=== PATIENT | male | born 1950 | race Caucasian/White ===

== ENCOUNTER → 2017-02-02 | Day surgery (SDC) | payer BC ==
[2017-01-08 08:06] VITALS: Ht 174 cm; Wt 93.6 kg
[~2017-02-02] VITALS: Ht 174 cm; Wt 93.6 kg
[~2017-02-02] MED LIST: ACETAMINOPHEN 325 MG TAB PO PRN; ALBU1AER9 INH; ASCO1TAB3 PO; ATROPINE SULFATE 0.1 MG/ML 5ML SYR IV PRN; BRIMONIDINE TART 0.2% OP SOLN PER DROP CHARGE ONE; EpINEphrine INJ 1MG/ML AMP 1 MG/ML AMP ONE; GLUCTAB7 PO; HYDR-1838 PO; LACTATED RINGER'S 1000ML 500 ML IV SCH; LIDOCAINE 4% OP SOLN DROP CHARGE ONE; LIDOCAINE 4% OP SOLN DROP CHARGE OPR SCH; LIDOCAINE HCL 1% MPF 2 ML VIAL ONE; MELA3TAB12 PO; MIDAZOLAM HCL 1 MG/ML 2ML VIAL ONE; MOXIFLOXACIN OPH SOLN PER DROP CHARGE ONE; MULT-506 PO; OMEG10007 PO; POVIDONE-IODINE OP SOLN 30 ML BTL ONE; PRLSR20 PO; PROPARACAINE 0.5% OP SOLN PER DROP CHARGE OPR SCH; SILD100T PO; SYMIN160 INH; TOBRAMYCIN/DEXAMETHASONE OPH OINT PER APPLN CHARGE ONE; VITACAP37 PO; ZINC1TAB4 PO
[2017-02-02] MEDS: PHENYLEPHRINE HCL 2.5% OP SOLN PER DROP CHARGE OPR SCH ×2 (11:24→11:29)
[2017-02-02] MEDS: TROPICAMIDE 1% OP SOLN PER DROP CHARGE OPR SCH ×2 (11:25→11:30)
[2017-02-02] MEDS: CYCLOPENTOLATE HCL 1% OP SOLN PER DROP CHARGE OPR SCH ×2 (11:26→11:31)
[2017-02-02] MEDS: KETOROLAC 0.5% OP SOLN PER DROP CHARGE OPR SCH ×2 (11:27→11:32)
[2017-02-02] MEDS: MOXIFLOXACIN OPH SOLN PER DROP CHARGE OPR SCH ×2 (11:28→11:38)
--- NOTE | 2017-02-02 12:23 | History & Physical Bridge - [place] ---
H&P Re-Evaluation Bridge Note: I have examined the patient, reviewed the History & Physical and in the interval since the performance of the History & Physical I have noted the following changes of clinical significance: No changes noted
--- NOTE | 2017-02-02 12:52 | Discharge Instructions-SurgCtr ---
Discharge Instructions Date of Service Feb 02, 2017. Visit Reason for Visit: Cataract Right Eye Discharge Discharge Diagnosis / Problem: cataract right eyee Discharge Goals Goal(s): Improve function Activity Recommendations Activity Limitations: per Instructions/Follow-up section Lifting Limitations: no more than 5 pounds Anesthesia . Post Anesthesia Instructions: If you have had General Anesthesia or IV Sedation: * Do not drive today. * Resume driving when surgeon permits. * Do not make important decisions or sign legal documents today. * Call surgeon for: 1. Temperature elevations greater than 101 degrees F. 2. Uncontrollable pain. 3. Excessive bleeding. 4. Persistent nausea and vomiting. 5. Medication intolerance (nausea, vomiting or rash). * For nausea and vomiting use only clear liquids such as: tea, soda, bouillon until nausea subsides, then gradually increase diet as tolerated. * If you have any concerns or questions, call your surgeon's office. If physician is unavailable and it is an emergency, call 911 or go to the nearest emergency room. . Instructions / Follow-Up Instructions / Follow-Up ACTIVITY RECOMMENDATIONS: * Light activities * You may walk outside, read, watch television. * Mild irritation and blurred vision are common for the first few days, redness around the white part of the eye is common. MEDICATIONS: Resume previous medications unless instructed otherwise by your surgeon. Eye drops (today and tomorrow): Cipro - one drop in operative eye every 2 hours while awake Prednisolone 1% - one drop in operative eye every 2 hours while awake Ketorolac - one drop in operative eye every 2 hours while awake SPECIAL CARE INSTRUCTIONS: * If any problems or concerns, please call Dr. Leblanc's office at . * Keep plastic shield taped over eye to sleep at night. * Keep plastic shield taped over eye except to administer eye drops. * Keep plastic shield on until office visit the following day. FOLLOW UP VISIT: Follow-up with Dr. Leblanc in the [place] office as scheduled. If not already scheduled, please call the office at . Diet Recommendations Home Diet: resume previous diet Procedures Procedures Performed: Right Cataract Phacoemulsification With Intraocular Lens Implant Pending Studies Studies pending at discharge: no Medical Emergencies . Who to Call and When: Medical Emergencies: If at any time you feel your situation is an emergency, please call 911 immediately. . Non-Emergent Contact Non-Emergency issues call your: Fire Chief Deputy . . "Provider Documentation" section prepared by Javy Leblanc.
--- NOTE | 2017-02-02 12:53 | [facility] Post Operative Brief Note ---
Immediate Operative Summary Operative Date Feb 02, 2017. Pre-Operative Diagnosis Cataract right eye Post-Operative Diagnosis same Procedure(s) Performed Right Cataract Phacoemulsification With Intraocular Lens Implant Surgeon DR Leblanc Wireless Technician Surgeon(s) 0 Estimated Blood Loss 0 Findings cataract right eye Specimens 0 Complication(s) None Disposition Recovery Room / PACU
--- NOTE | 2017-02-02 13:20 | Anesthesia Progress Nt - [facility] ---
Anesthesia Post Op Note Date & Time Feb 02, 2017 at 13:19 Vital Signs Pain Intensity: 0 Vital Signs Past 12 Hours Date Time Temp Pulse Resp B/P Pulse Ox O2 Delivery O2 Flow Rate FiO2 02/02/17 12:59 36.5 63 14 149/95 97 Room Air 02/02/17 11:14 37.0 73 16 171/97 95 Room Air Notes Mental Status: alert / awake / arousable, participated in evaluation Pt Amnestic to Procedure: Yes Nausea / Vomiting: adequately controlled Pain: adequately controlled Airway Patency, RR, SpO2: stable & adequate BP & HR: stable & adequate Hydration State: stable & adequate Anesthetic Complications: no major complications apparent
[2017-02-02 13:26] VITALS: BP 147/95; PULSE 62; TEMP 36.7; O2SAT 96
--- NOTE | 2017-02-03 00:13 | OPERATIVE REPORT ---
DATE OF OPERATION: 02/02/2017 PREOPERATIVE DIAGNOSIS: Cataract, right eye. POSTOPERATIVE DIAGNOSIS: Cataract, right eye. PROCEDURE: Phacoemulsification cataract extraction with intraocular lens placement, right eye. SURGEON: Dr. Leblanc. COMPLICATIONS: None. ESTIMATED BLOOD LOSS: None. ANESTHESIA: Topical with sedation. OPERATION AND FINDINGS: After informed consent was obtained in the holding area the patient was wheeled back to the Operating Room where cardiac monitoring leads and oxygen by nasal cannula was administered by Anesthesia. Gentle IV sedation was given, and the patient's right eye was prepped and draped in usual sterile fashion. A wire lid speculum was placed into the right eye and the operating microscope was swung into position. Using 0.12 forceps and a Supersharp blade a paracentesis port was made 3 o'clock hours away from the 10 o'clock position of patient's right eye. 1% non-preserved Lidocaine was then injected into the anterior chamber for anesthesia. A 2.2 mm keratotome blade was then used to make a shelved clear corneal incision at the 10 o'clock position of his right eye. Amvisc was injected into the anterior chamber and a cystotome and Utrata forceps were used to perform a curvilinear capsulorrhexis. BSS on a hydrodissection cannula was used to hydrodissect the lens nucleus away from the capsular bag. The phacoemulsification handpiece was then used in a stop and chop fashion to remove the lens nucleus. The irrigation and aspiration handpiece was then used to remove the residual cortical material. Amvisc was injected into the capsular bag and anterior chamber and a Bausch \T\ Lomb MX60, 18.0 Diopter intraocular lens was injected into the capsular bag. Irrigation and aspiration handpiece was used to remove the residual viscoelastic material. The wounds were hydrated and noted to be watertight. The wire lid speculum was removed from the eye. Vigamox, Brimonidine, and TobraDex ointment were placed on the eye and it was shielded. It should be noted that EndoCoat was used during the case to protect the cornea endothelium. DISPOSITION: The patient tolerated the procedure well and was wheeled to the post anesthesia care unit in stable condition. I attest to the content of the Intraoperative Record and any orders documented therein. Any exceptions are noted below. I attest to the content of the Intraoperative Record and any orders documented therein. Any exceptio ns are noted below.
== END | disposition home or self-care (01) ==
LOC: X.SURG 10:59
PROVIDERS: ATTEND Ophthalmology
DX: H25.11 Age-related nuclear cataract, right eye (principal); I10 Essential (primary) hypertension; J45.909 Unspecified asthma, uncomplicated; J44.9 Chronic obstructive pulmonary disease, unspecified

== ENCOUNTER → 2017-05-07 | Outpatient (CLI) | payer BC ==
[~2017-05-07] MED LIST changes: -ACETAMINOPHEN 325 MG TAB PO PRN; -ATROPINE SULFATE 0.1 MG/ML 5ML SYR IV PRN; -BRIMONIDINE TART 0.2% OP SOLN PER DROP CHARGE ONE; -EpINEphrine INJ 1MG/ML AMP 1 MG/ML AMP ONE; -LACTATED RINGER'S 1000ML 500 ML IV SCH; -LIDOCAINE 4% OP SOLN DROP CHARGE ONE; -LIDOCAINE 4% OP SOLN DROP CHARGE OPR SCH; -LIDOCAINE HCL 1% MPF 2 ML VIAL ONE; -MIDAZOLAM HCL 1 MG/ML 2ML VIAL ONE; -MOXIFLOXACIN OPH SOLN PER DROP CHARGE ONE; -POVIDONE-IODINE OP SOLN 30 ML BTL ONE; -PROPARACAINE 0.5% OP SOLN PER DROP CHARGE OPR SCH; -TOBRAMYCIN/DEXAMETHASONE OPH OINT PER APPLN CHARGE ONE
--- NOTE | 2017-05-07 11:51 | DIAGNOSTIC IMAGING REPORT ---
CHEST 2 VIEWS ROUTINE CLINICAL HISTORY: SOB dyspnea COMPARISON STUDY: 10/17/2016 FINDINGS: Tortuous thoracic aorta. This is unchanged from the prior exam. Minimal chronic bibasilar platelike atelectasis. No focal infiltrate. Degenerative change thoracic spine. IMPRESSION: Chronic change. No acute process. Electronically signed by: Edmundo Rordiguez M.D. 05/07/2017 11:49 AM Dictated Date/Time: 05/07/2017 11:48 AM
== END | disposition home or self-care (01) ==
LOC: C.RAD1850 11:07
PROVIDERS: ATTEND Family Medicine
DX: R06.02 Shortness of breath (principal); Z87.09 Personal history of other diseases of the respiratory system

== ENCOUNTER 2020-07-31 05:10 | Observation (INO) ==
--- NOTE | 2020-07-06 14:51 | PAT Medication Instructions ---
Medication Instructions Date of Service July 06, 2020 Home Medications Medication Instructions Recorded inhalational spacing device #1 ea 06/28/19 azelastine 137 mcg (0.1 %) nasal 1 sprays INTNAS BID #30 ml 03/29/20 spray aerosol levocetirizine 5 mg tablet 5 mg PO DAILY PRN #60 tab 03/29/20 budesonide-formoterol HFA 160 2 puffs INH BID #10.2 gm 04/23/20 mcg-4.5 mcg/actuation aerosol inhaler ascorbic acid (vitamin C) 1,000 mg tablet 1 gm PO Q6H clobetasol 0.05 % topical cream 1 appln TOP DAILY melatonin 1 mg tablet 1 mg PO HS PRN montelukast 10 mg tablet 10 mg PO QPM multivitamin 1 cap PO QAM omega-3 fatty acids 1,000 mg capsule 1,000 mg PO QAM sildenafil 100 mg tablet 100 mg PO DAILY PRN zinc 50 mg tablet 50 mg PO QAM [id number]-cfw-islcxbrkt-hrb 149-hyalur 500 mg-500 mg-66.7 mg tablet 1 tab PO BID omeprazole 20 mg capsule,delayed release 20 mg PO BID azelastine 137 mcg (0.1 %) nasal spray aerosol 1 sprays INTNAS BID hydrocodone 5 mg-acetaminophen 325 mg tablet 1 tab PO Q6H PRN levocetirizine 5 mg tablet 5 mg PO DAILY PRN budesonide-formoterol HFA 160 mcg-4.5 mcg/actuation aerosol inhaler 2 puffs INH BID Elderberry 1 dose PO QAM tiotropium bromide [Spiriva Respimat] 2 puff INH QAM STOP taking 2 weeks before surgery omega-3 fatty acids 1,000 mg capsule 1,000 mg PO QAM zinc 50 mg tablet 50 mg PO QAM [id number]-zpe-pnaqlxiay-hrb 149-hyalur 500 mg-500 mg-66.7 mg tablet 1 tab PO BID Elderberry 1 dose PO QAM STOP taking 24 hours before surgery clobetasol 0.05 % topical cream 1 appln TOP DAILY sildenafil 100 mg tablet 100 mg PO DAILY PRN DO NOT take the morning of surgery ascorbic acid (vitamin C) 1,000 mg tablet 1 gm PO Q6H multivitamin 1 cap PO QAM levocetirizine 5 mg tablet 5 mg PO DAILY PRN Take morning of surgery With a small sip of water, OTHERWISE NOTHING TO EAT OR DRINK AFTER MIDNIGHT: omeprazole 20 mg capsule,delayed release 20 mg PO BID azelastine 137 mcg (0.1 %) nasal spray aerosol 1 sprays INTNAS BID hydrocodone 5 mg-acetaminophen 325 mg tablet 1 tab PO Q6H PRN (okay to take up to 4 hours prior to surgery if needed) budesonide-formoterol HFA 160 mcg-4.5 mcg/actuation aerosol inhaler 2 puffs INH BID tiotropium bromide [Spiriva Respimat] 2 puff INH QAM Take evening before surgery ascorbic acid (vitamin C) 1,000 mg tablet 1 gm PO Q6H melatonin 1 mg tablet 1 mg PO HS PRN (if needed) montelukast 10 mg tablet 10 mg PO QPM omeprazole 20 mg capsule,delayed release 20 mg PO BID azelastine 137 mcg (0.1 %) nasal spray aerosol 1 sprays INTNAS BID hydrocodone 5 mg-acetaminophen 325 mg tablet 1 tab PO Q6H PRN (if needed) budesonide-formoterol HFA 160 mcg-4.5 mcg/actuation aerosol inhaler 2 puffs INH BID Other Notes If you have any questions please call us at [phone] or [phone] or [phone] or [phone]
--- NOTE | 2020-07-09 16:06 | Anesthesiology Consultation ---
Date of Service July 09, 2020 Assessment & Plan (1) Encounter for pre-operative examination: COVID Status: As of 07/09 assessment, patient denies travel to endemic area, known exposure/sick contacts, or symptoms of COVID19. Patient instructed that they and their household members must follow strict social distancing guidelines, wear a mask in public and avoid travel for 14 days prior to surgery. Preoperative COVID19 testing to be completed prior to surgery per surgeon's a rrangements. Patient made aware to self-isolate as much as possible between COVID testing and surgery. Pulmonary Clearance 06/28/20 = "Cleared from pulmonary with mild-mod risk. Patient has moderate COPD with emphysema with obesity. Recommend ~6ml/kg TV if needed and BiPAP post-op. No absolute contraindication for surgery." Chart Review Chart Review: Acceptable Risk for Surgery (pending surgeon-ordered PCP cl earance) and Patient seen in Pre Admission Testing Teaching & Discussion Instructed NPO after midnight before surgery, except medications with 15 cc of water. Medication instructions provided according to the PAT guidelines. Advised no marijuana use for 24hrs prior to surgery. History Surgery Operation Date: 07/31/20 07:00 Proposed Procedures p Left Total Knee Arthroplasty - Miguel Angel Hermilo Busby MD Height/Weight Height: 5 ft 8 in Weight: 99.8 kg Allergies Allergy/AdvReac Type Severity Reaction Status Date / Time latex Allergy Unknown Rash Verified 07/05/20 11:54 No Known Drug Allergies Allergy Unknown . Verified 07/05/20 11:54 adhesive AdvReac Mild RASH Verified 07/05/20 11:54 Medications Home Medications Medication Instructions Recorded Confirmed Last Taken ascorbic acid (vitamin C) 1,000 mg 1 gm PO Q6H 06/24/19 07/05/20 Unknown tablet clobetasol 0.05 % topical cream 1 appln TOP DAILY 06/24/19 07/05/20 Unknown melatonin 1 mg tablet 1 mg PO HS PRN 06/24/19 07/05/20 Unknown montelukast 10 mg tablet 10 mg PO QPM 06/24/19 07/05/20 Unknown multivitamin 1 cap PO QAM 06/24/19 07/05/20 Unknown omega-3 fatty acids 1,000 mg 1,000 mg PO QAM 06/24/19 07/05/20 Unknown capsule sildenafil 100 mg tablet 100 mg PO DAILY PRN 06/24/19 07/05/20 Unknown zinc 50 mg tablet 50 mg PO QAM 06/24/19 07/05/20 Unknown behernbblfq-qkm-higlnsgeg-hrb 1 tab PO BID tab 06/28/19 07/05/20 Unknown 149-hyalur 500 mg-500 mg-66.7 mg tablet inhalational spacing device #1 ea 06/28/19 07/05/20 Unknown omeprazole 20 mg capsule,delayed 20 mg PO BID cap 06/28/19 07/05/20 Unknown release azelastine 137 mcg (0.1 %) nasal 1 sprays INTNAS BID #30 ml 03/29/20 07/05/20 Unknown spray aerosol hydrocodone 5 mg-acetaminophen 325 1 tab PO Q6H PRN 03/29/20 07/05/20 Unknown mg tablet levocetirizine 5 mg tablet 5 mg PO DAILY PRN #60 tab 03/29/20 07/05/20 Unknown budesonide-formoterol HFA 160 2 puffs INH BID #10.2 gm 04/23/20 07/05/20 Unknown mcg-4.5 mcg/actuation aerosol inhaler Elderberry 1 dose PO QAM 07/05/20 07/05/20 Unknown tiotropium bromide [Spiriva 2 puff INH QAM 07/05/20 07/05/20 Unknown Respimat] Past Medical History Medical History (Updated 07/10/20 @ 09:07 by Thiago Moya) Chronic bronchitis Cirrhosis follows with Dr. Vivas. LFTs WNL on 07/09/20 labs. COPD (chronic obstructive pulmonary disease) Spiriva and Symbicort daily, uses albuterol PRN, has not used for 2 weeks currently. Esophageal varices with banding in past Esophageal varices with hemorrhage at least 15 years ago Former smoker GERD (gastroesophageal reflux disease) History of alcoholism Sober x 15yrs ago History of hepatitis A Osteoarthritis Psoriasis Pulmonary nodules Tinnitus Umbilical hernia Exercise / Class Metabolic Activity III < 4 Walking/Shop/Light housework (+SOB with ambulation, denies any chest pain) Past Family History Family History Other No family history of adverse response to anesthesia Past Surgical History Surgical History History of ankle surgery Rt History of cataract surgery History of colonoscopy History of esophagogastroduodenoscopy (EGD) History of hand surgery Left History of left knee surgery History of pelvic surgery History of wisdom tooth extraction Past Anesthesia History No Hx of Anesthesia Complications and No Family Hx of Anesthesia Complications History of PONV No Hx of PONV and No Hx of Motion Sickness Social History Smoking Status: Former smoker Smoking cigarettes per day: 20 Do You Dip or Chew Tobacco: No Smoking End Date: quit 15 years ago Hx Alcohol Use: No (quit 15 years ago) Hx Substance Use: Yes substance use type: marijuana (once per week) Substance Use Type Other:: history of heroin use Review of Systems Pt denies any recent chest pain, shortness of breath above baseline, cough, fever, URI, or uncontrolled acid reflux (generally controlled, occ has some depending on diet). +occ palpitations Physical Exam Vital Signs BP: 160/93 (pt reports anxiety, BP usually elevated in medical settings) P: 80bpm SPO2: 95% RA T: 98.7 F R: 16 ENMT Mouth: + chipped teeth (many); no dental restorations and no loose teeth Thyromental Distance: > or= 3.5 Finger Breadths Mallampati Class: I Neck normal visual inspection and + facial hair (short goatee); neck extension not limited Respiratory normal respiratory effort Auscultation: lungs clear to auscultation bilaterally Prolonged exp phase Cardiovascular Rate/Rhythm: regular rate and regular rhythm (with a few ectopic beats) Heart Sounds: no murmur Testing Laboratory Results 07/09/20 16:31 07/09/20 16:31 PT 10.7 Seconds (9.0-12.0) 07/09/20 16:31 INR 1.0 (0.9-1.1) 07/09/20 16:31 APTT 28.8 Seconds (21.0-31.0) 07/09/20 16:31 Blood Type A Positive 07/09/20 16:31 Antibody Screen NEGATIVE 07/09/20 16:31 Electrocardiogram Date: 07/09/20 Sinus rhythm at 75 bpm with occasional PVCs and PACs. Otherwise normal EKG. compared with EKG of 02/06/2011, PVCs and PACs are now present. *unconfirmed. Chest X-Ray Date: 12/27/19 Findings: + NAD Tortuous thoracic aorta. Echocardiogram Date: 04/12/20 EF: 55-60% Mildly dilated left ventricle with normal systolic function. No regional wall motion abnormalities. No LVH. Moderate left atrial dilation. No significant valvular abnormalities visualized. Mildly to moderately elevated RVSP 48 mmHg. No prior study available for comparison. Pulmonary Function Test Date: 03/29/20 Findings: + FEV1 pre (2.09) and + FEV1 post (2.38) Adequate test. Moderate obstructive lung dysfunction. Significant bronchodilator response. Normal lung volumes. Mild decrease in DLCO. Moderate COPD with bronchodilator response.
[2020-07-09 16:49] LABS: Basophils # (auto) 0.03 K/uL (0-0.2); Basophils % (auto) 0.3 %; Eosinophils # (auto) 0.27 K/uL (0-0.5); Hemoglobin 14.1 g/dL (14.0-18.0); Immature Granulocytes # (auto) 0.02 K/uL (0.00-0.02); Immature Granulocytes % (auto) 0.2 %; Lymphocytes # (auto) 1.84 K/uL (1.2-3.4); Lymphocytes % (auto) 20.4 %; Mean Corpuscular Hemoglobin 29.1 pg (25-34); Mean Corpuscular Hgb Conc 32.8 g/dL (32-36); Mean Corpuscular Volume 88.8 fL (80-100); Mean Platelet Volume 10.6 fL (7.4-10.4); Monocytes # (auto) 0.71 K/uL (0.11-0.59); Monocytes % (auto) 7.9 %; Neutrophils # (auto) 6.13 K/uL (1.4-6.5); Neutrophils % (auto) 68.2 %; Platelet Count 294 K/uL (130-400); RDW Coefficient of Variation 14.2 % (11.5-14.5); RDW Standard Deviation 46.6 fL (36.4-46.3); Red Blood Count 4.84 M/uL (4.7-6.1)
[2020-07-09 16:59] LABS: Partial Thromboplastin Time 28.8 Seconds (21.0-31.0); Prothrombin Time 10.7 Seconds (9.0-12.0)
[2020-07-09 17:21] LABS: Alanine Aminotransferase 26 U/L (12-78); Albumin Level 3.7 gm/dl (3.4-5.0); Aspartate Aminotransferase 16 U/L (15-37); BUN Creatinine Ratio 15.4 (10-20); Bilirubin Direct < 0.1 mg/dl (0-0.2); Blood Urea Nitrogen 19 mg/dl (7-18); Calcium 8.7 mg/dl (8.5-10.1); Carbon Dioxide 28 mmol/L (21-32); Chloride 108 mmol/L (98-107); Creatinine Clr Calc Pharmacy 63.1 ml/min; Est GFR (Non-African American) 58.7; Glucose 99 mg/dl (70-99); Potassium 3.9 mmol/L (3.5-5.1); Sodium 141 mmol/L (136-145)
[2020-07-09 17:24] LABS: Alkaline Phosphatase 74 U/L (45-117); Bilirubin,Total 0.2 mg/dl (0.2-1); Total Protein 7.7 gm/dl (6.4-8.2)
--- NOTE | 2020-07-10 15:07 | Electrocardiogram Report ---
Test Reason : Blood Pressure : / mmHG Vent. Rate : 075 BPM Atrial Rate : 075 BPM P-R Int : 146 ms QRS Dur : 090 ms QT Int : 398 ms P-R-T Axes : 058 007 065 degrees QTc Int : 444 ms Sinus rhythm with occasional Premature ventricular complexes and Premature atrial complexes Otherwise normal ECG When compared with ECG of 06-FEB-2011 23:08, Premature ventricular complexes are now Present Premature atrial complexes are now Present Confirmed by Jonny Martinez ([id number]) on 07/10/2020 3:07:26 PM Referred By: Miguel Angel Busby Confirmed By:Jonny Martinez
[2020-07-31] MEDS ORDERED: TRANEXAMIC ACID 1,000 MG **IV Pre-op IV SCH (06:00)
[2020-07-31] MEDS ORDERED: CeleBREX 200 MG CAP PO SCH (06:00)
[2020-07-31] MEDS ORDERED: TRANEXAMIC ACID 1,000 MG **IV Intra-op IV SCH (06:00)
[2020-07-31] MEDS ORDERED: LR 500ML BOLUS, THEN 15ML/HR IV SCH (06:00)
[2020-07-31] MEDS ORDERED: LR 60ML/HR IV SCH (06:00)
[2020-07-31] MEDS ORDERED: ROPIVACAINE 0.5% HCL/PF 150 MG, BUPIVACAINE 0.5% MPF 30 ML, EPINEPHrine 0.15 MG, Ketoro... INFIL SCH (06:00)
[2020-07-31] MEDS ORDERED: ROPIVACAINE 0.5% 5 MG/ML 30 ML VIAL ONE (06:25)
[2020-07-31] MEDS ORDERED: BUPIVACAINE 0.5 % 5 MG/1 ML PF 10ML VIAL ONE (06:25)
[2020-07-31] MEDS ORDERED: EPINEPHrine INJ 1 MG/ML AMP ONE (06:26)
--- NOTE | 2020-07-31 06:37 | History & Physical Bridge Note ---
Date of Service July 31, 2020 History & Physical Bridge Note I have examined the patient, reviewed the History & Physical and in the interval since the performance of the History & Physical I have noted the following changes of clinical significance: LBP changes noted Patient is aware of the risks, is asymptomatic, and tested negative for COVID- 19.
[2020-07-31] MEDS ORDERED: MIDAZOLAM HCL 1 MG/ML 2ML VIAL ONE ×2 (06:40→09:15)
[2020-07-31] MEDS ORDERED: fentaNYL citrate 100 MCG/2 ML VIAL ONE (06:40)
[2020-07-31] MEDS ORDERED: ORTHO JOINT ANESTHETIC ONE (06:45)
[2020-07-31] MEDS ORDERED: PHENYLEPHRINE 100MCG/ML 5ML SYR IV PRN (07:05)
[2020-07-31] MEDS ORDERED: MEPERIDINE HCL 25 MG/ML CARP/VIAL IV PRN (07:05)
[2020-07-31] MEDS ORDERED: ePHEDrine sulfate 50 MG/ML AMP IV PRN (07:05)
[2020-07-31] MEDS ORDERED: LABETALOL HCL IV 5 MG/ML 20ML IV PRN (07:05)
[2020-07-31] MEDS: CEFAZOLIN 2000MG 2,000 MG/15 ML SYR IV SCH ×4 (07:05→23:13)
[2020-07-31] MEDS ORDERED: ATROPINE SULFATE 0.1 MG/ML 10ML SYR IV PRN (07:05)
[2020-07-31] MEDS ORDERED: ONDANSETRON INJ 2 MG/ML 2 ML VIAL IV PRN ×2 (07:05→10:58)
[2020-07-31] MEDS ORDERED: HYDROmorphone INJ 1 MG/ML SYRINGE IV PRN ×2 (07:05→10:58)
[2020-07-31] MEDS ORDERED: LIDOCAINE HCL 2% 2 ML VIAL/AMP(20MG/ML) INFIL ONE (07:35)
[2020-07-31] MEDS ORDERED: PHENYLEPHRINE 100MCG/ML 5ML SYR ONE (07:35)
[2020-07-31] MEDS ORDERED: ONDANSETRON INJ 2 MG/ML 2 ML VIAL ONE (07:35)
[2020-07-31] MEDS ORDERED: ePHEDrine sulfate 50 MG/ML SYR ONE (07:35)
[2020-07-31] MEDS ORDERED: PROPOFOL IV EMULSION 10 MG/ML 20 ML VIAL IV ONE ×4 (07:35→09:52)
--- NOTE | 2020-07-31 10:38 | Operative Report ---
Post Operative Report Pre & Post Diagnosis Operation Date: 07/31/20 07:00 Pre-Op Diagnosis: Left Knee Osteoarthritis Post-Op Diagnosis: Left Knee Osteoarthritis I identified the patient and participated in the time-out.: Yes Procedure Operation Date: 07/31/20 07:00 Actual Procedures p Left Total Knee Arthroplasty(Left) - Miguel Angel Busby MD Surgeon Miguel Angel Busby MD Gifted Teacher Kenya Greene PA-C (No fellow avail) Estimated Blood Loss 50 Findings See Below Examined Under Anesthesia: ROM -- There was 10 degrees to 125 degrees of flexion Ligamentous examination -- revealed Uzma 5mm anterior translation and soft endpoint, posterior drawer stable, valgus stress at 10 and 30 degrees with pseudolaxity, Varus stress at 10 & 30 degrees with 1-2 mm of opening. Outerbridge Type IV changes of of all 3 compartments. Significant synovitis. Several loose bodies posterior medial femoral condyle. Crystallin deposits. Several Ethibond sutures along MCL. Fluids 800 cc Specimens L Knee contents Drains n/a Anesthesia Type MAC Spinal Regional Complications none Indications This is a 69-year-old male who has clinical and radiographic findings consistent with osteoarthritis of the a left knee. I recommended that a left total knee replacement be performed. The patient understands the risks of surgery, which include but not limited to: bleeding, infection, re-operation, damage to nerves and arteries, continued knee pain, knee stiffness, DVT, and . The patient understands all of these instructions and explanations, all of his questions have been satisfactorily addressed and the patient has elected to proceed. Informed consent was signed. Description of Procedure IMPLANTS: 1. Femur: Triathlon #5 Left PS. 2. Tibia: Triathlon #4 [place]. 3. Insert: Triathlon #4 x 9 mm PS X3 poly. 4. Patella: Triathlon A35 x 9 mm X3 poly. 5. Simplex cement. Kenya Greene PA-C is assisting with positioning , retracting, and closure due to fellow not available. PROCEDURE: The patient was taken to the Operating Room and placed in the supine position after spinal and adductor canal nerve block was administered. My initials and a multidisciplinary time-out were used to identify the left leg as the correct operative limb. A tourniquet was placed high in the thigh. Prior to the incision, 2 grams of intravenous Ancef were given. The left leg was then prepped and draped in a standard sterile fashion. An Esmarch was used to exsanguinate the leg and the tourniquet was inflated to 250 mmHg. The planned m id-line 20 cm incision was created exposing the extensor mechanism. The medial parapatellar arthrotomy was made and the patella was everted. The patella was addressed first. It was prepared by reaming from 22 mm down to 12 mm. An A35 button was found to fit best. The peg holes were made in the standard fashion. The femur was addressed next and the guide denise was placed intramedullary. The initial cutting block was placed with 5 degrees of valgus and removing 10 mm for the distal cut. The cut was made and the 4-in-1 cutting block for a size 5 femur was placed. These cuts and the cuts to place the box were made in the standard fashion. Our attention was then drawn to the tibia cut with the external cutting guide, taking 4 mm from the medial low side. There was sufficient extension and flexion gap to fit a 9 mm spacer. A #4 Tibial baseplate fit well. A trial with a 9 mm spacer showed excellent stability in both flexion and extension, with good ligament balance. Range of motion of 0-125 degrees. The tibial baseplate was pinned and the final preparation for the keel and stem was made. All the trial components were tested again, with good stability and thumbs free tracking of the patella. All components were removed. The tourniquet was deflated. Hemostasis was obtained. 90 ml of total knee cocktail were injected into the soft tissues and periosteum. A bone plug was placed in the femur and covered with bone wax. After a 15 minute break, the limb was exsanguinated again and the tourniquet was re-inflated. All surfaces were copiously irrigated prior to placement of the components. The femoral component and Tibial baseplate were cemented first and a 9 mm mm X3 poly. Next the patellar button was cemented using the Simplex cement. The range of motion and stability were unchanged. The extensor mechanism was closed with 1-0 and 0 Vicryl with the knee bent approximately 60 degrees in a standard fashion. The peritenon and deep fascia was closed with 2-0 Vicryl. The subcutaneous layer was closed with 3-0 Vicryl. The skin was closed with tammie. The limb was cleaned and dried. Xeroform, 4x4 dressing was placed over top followed by ABDs, sterile Webril, and a foot to thigh Dank bandage. The patient was then transferred to the Recovery Room in stable condition. The sponge and needle counts were correct. POST-OP INSTRUCTIONS: The patient will be WBAT. The patient will be admitted to the hospital. The patient will use the knee immobilizer when ambulating and standing until good quad control is achieved. Labs will be obtained during the stay. DVT prophylaxis will included aspirin for 6 weeks, TEDs, and mechanical foot pumps. The dressing will be changed prior to their discharge or postop day #2 and covered with a Silverlon dressing, whichever comes first. I attest to the content of the Intraoperative Record and any orders documented therein. Any exceptions are noted below.
--- NOTE | 2020-07-31 10:38 | Post Operative Brief Note ---
Immediate Post Op Note v1 Date of Surgery July 31, 2020 Pre & Post Diagnosis Operation Date: 07/31/20 07:00 Pre-Op Diagnosis: Left Knee Osteoarthritis Post-Op Diagnosis: Left Knee Osteoarthritis I identified the patient and participated in the time-out.: Yes Procedure Operation Date: 07/31/20 07:00 Actual Procedures p Left Total Knee Arthroplasty(Left) - Miguel Angel Busby MD Surgeon Miguel Angel Busby MD Mail Sorting Supervisor Kenya Greene PA-C (No fellow avail) Estimated Blood Loss 50 Findings Consistent with Post-Op Diagnosis Fluids 800 cc Specimens L Knee contents Anesthesia Type MAC Spinal Regional Complications none
[2020-07-31] MEDS: fentaNYL citrate 100 MCG/2 ML VIAL IV PRN ×2 (10:50→10:55)
[2020-07-31] MEDS ORDERED: NALOXONE HCL 0.4 MG/1 ML VIAL/CARP IV PRN (10:58)
[2020-07-31] MEDS ORDERED: DiphenhydrAMINE HCL 50 MG/ML VIAL IV PRN (10:58)
[2020-07-31] MEDS ORDERED: bisacodyL 10 MG SUPP PR PRN (10:58)
[2020-07-31] MEDS ORDERED: METOCLOPRAMIDE HCL INJ 5 MG/ML 2 ML VIAL IV PRN (10:58)
[2020-07-31] MEDS ORDERED: MAGNESIUM HYDROXIDE SUSP 30 ML UDC PO PRN (10:58)
[2020-07-31] MEDS ORDERED: ALUMINUM/MAGNESIUM SUSP 30 ML UDC PO PRN (10:58)
[2020-07-31] MEDS ORDERED: [UNRECOGNIZED DRUG - OTHER] SCH (11:00)
--- NOTE | 2020-07-31 11:07 | Anesthesiology Progress Note ---
Date of Service July 31, 2020 Anesthesia Post Procedure Vital Signs Vital Signs: Temp Pulse Pulse Resp BP BP Pulse Ox 07/31/20 11:00 72 14 147/88 H 98 07/31/20 10:50 68 14 156/96 H 96 07/31/20 10:41 36.3 C L 81 16 144/96 H 94 07/31/20 05:42 36.5 C 74 20 187/102 H 96 Pain Intensity Lower Back: Pain Intensity: 1 Left Knee: Pain Intensity: 1 Transfer of Care Handoff Completed per policy Notes Mental Status: alert / awake / arousable Patient Amnestic to Procedure: Yes Nausea / Vomiting: adequately controlled Pain: adequately controlled Airway Patency, RR, SpO2: stable & adequate BP & HR: stable & adequate Hydration State: stable & adequate Neuraxial Anesthesia: was administered and sensory block is resolving Anesthetic Complications: no major complications apparent and Pt Satisfied with anesthetic care
--- NOTE | 2020-07-31 11:16 | XRay Report ---
TWO VIEWS LEFT KNEE CLINICAL HISTORY: Postoperative examination. FINDINGS: AP and crosstable lateral portable views of the left knee are obtained. A left knee arthrop lasty is in near anatomic alignment. There has been undersurface remodeling of the patella. No acute fracture is seen. There are expected postoperative changes around the knee including skin clips, soft tissue edema, and subcutaneous gas. IMPRESSION: Expected postoperative changes status post left knee arthroplasty. No acute fracture is s een. ACT 112: Negative or not required by law. Electronically signed by: Scottie Santana M.D. 07/31/2020 11:14 AM
[2020-07-31] MEDS ORDERED: MELATONIN 3 MG TAB PO PRN (12:48)
[2020-07-31] MEDS: SODIUM CHLORIDE 0.9% 1000ML 1,000 ML IV SCH ×2 (13:36→23:13)
[2020-07-31] MEDS: KETOROLAC TROMETHAMINE 15 MG/ML VIAL IV SCH ×2 (13:37→19:27)
[2020-07-31] MEDS: OXYCODONE HCL IR 5 MG TAB (IMMEDIATE RELEASE) PO PRN ×2 (14:35→21:47)
--- NOTE | 2020-07-31 14:36 | History & Physical Report ---
Date of Service July 31, 2020 Assessment & Plan (1) Status post left knee replacement: Neftaly Givens is a pleasant 69-year-old male with a past medical history of alcoholic cirrhosis with alcohol use in remission, esophageal varices, COPD, and knee arthritis s/p L total knee performed 07/31/2020. Hospitalist service has been consulted for postoperative medical management. Postoperative hypertension Patient normotensive prior to admission, regular blood pressures 130s/70s Mildly hypertensive to [id number] systolic postop with one high of 187/102. Suspect due to pain and postsurgical sympathetic drive Blood pressure improved following pain control, currently 161/92 Do not recommend addition of any chronic antihypertensive at this time, would not add new scheduled medications unless his blood pressure sustains above 180/100 Continue pain control with ice, Toradol 15 mg every 6, hydromorphone as needed for breakthrough. Pain is improving, expect continued gradual improvement May add Tylenol 500 mg every 6 hours for analgesia, see below note If blood pressures increasing above cap and not improved with adequate pain control, may trial as needed low dose of hydralazine. COPD Breathing at baseline, no exacerbation of COPD symptoms Continue Spiriva 2 puffs every morning Continue Symbicort 2 puffs twice daily Incentive spirometry every 2 hours while awake Oxygen goal greater than 90%. Patient 99% on 2 L, titrated down to room air. Pulmonary nodule Low-dose CT lung screening performed 12/2019 showed mild emphysema and a new solid 5 mm right lower lobe primary pulmonary nodule. - Overall lung RADS category 3 (probably benign), but requiring six-month repeat If not ready scheduled, recommend patient be scheduled for repeat low-dose CT as outpatient Status post left total knee replacement No complications of surgery Patient doing well, localized pain otherwise no new symptoms Management and neurovascular checks per primary team -Per surgery WBAT, aspirin DVT prophylaxis for 6 weeks History of alcohol use with cirrhosis/varices in remission Patient has a reported history of alcoholic cirrhosis, however review of records show last liver ultrasound 10/2012 revealed a sonographically normal liver without focal hepatic lesions. Review of [facility] and [facility] records do not show any updated imaging - EGD performed by Dr. Vivas available in [facility] system from 04/2015, showed a normal esophagus, stomach, and duodenum without varices. Patient does have a history of alcohol use in remission for more than 10 years, no transaminitis at admit - Question if his is actually cirrhotic based on physical exam and available records. May discuss further as outpatient with his PCP. - No indication to start a B-allison at this time. No acute change in management at this time Based on above findings acetaminophen toxicity risk is low, and patient could use Tylenol for additional pain control. Even in cases of liver cirrhosis as long as the patient is not actively drinking and there is no acute hepatitis 2g and likely up to 3g daily may be used for analgesia. Summary: Mr. Givens is a 69-year-old male status post left knee replacement who is doing well. Do not recommend any new antihypertensives at this time. He continue his home medications for COPD as above. He is at his baseline and is medically stable for discharge when ready from a surgical standpoint. We will sign off on this patient, but remain available for any questions or concerns or if there is any clinical change. FEN GI: Regular as tolerated DVT prophylaxis: Aspirin 81 mg x 6 weeks Disposition: Medical surgical, dispo per primary team CODE STATUS: Full code (2) COPD with emphysema: (3) Pulmonary nodule: (4) Exertional shortness of breath: Admission and Anticipated Discharge Date Admission Date: July 31, 2020 History of Present Illness Chief Complaint: Postoperative management Primary Care Provider: Jorge Beckwith MD Neftaly Givens is a pleasant 69-year-old male with a past medical history of alcoholic cirrhosis with alcohol use in remission, esophageal varices, COPD, and knee arthritis s/p L total knee performed 07/31/2020. Hospitalist service has been consulted for postoperative medical management. Mr. Givens reports that he feels mostly well and arrived back to his room approximately 2 hours ago from postop recovery. He reports his pain was initially a 10/10, but feels about 50% improved from when he was in postop and he would now rated an 8/10 localized to his left knee without radiation into the hip or down into the calf. He reports that prior to surgery he had been having some high lumbar/low thoracic right mid back pain after being active and cleaning which feels at its normal baseline. His back pain is on the right side, does not cross the left, and wraps slightly around to the right side. He has not noticed any overlying rash, tingling, or electric pain in the area. He otherwise denies pain and other symptoms. He feels his breathing is "okay ", and denies any's of breath or wheezing since surgery. He denies numbness, tingling, fever, chills, sweats, chest pain, chest pressure, palpitations, lightheadedness, and dizziness. He endorses a mild postoperative headache which improved after a cup of coffee, reports he normally drinks "a crackers "amount of coffee daily. Denies abdominal pain, diarrhea, constipation, is passing flatus and last bowel movement was 2 days ago. Mr. Givens reports that his blood pressure is normally 130s/70s, and that he follows with his outpatient provider Dr. Mcgarry regularly and has not needed an tihypertensive treatment in the past. He had a routine preoperative evaluation and reports he was not hypertensive prior to surgery. 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 No recent substance use. Lives at home with his . Independently ambulatory, no problems completing ADLs normally. No recent sick contacts, although works in the [employer] for [facility] [employer]. CODE STATUS: Full code Allergies Allergy/AdvReac Type Severity Reaction Status Date / Time latex Allergy Unknown Rash Verified 07/31/20 05:36 No Known Drug Allergies Allergy Unknown . Verified 07/31/20 05:36 adhesive AdvReac Mild RASH Verified 07/31/20 05:36 Home Medications Home Medications Medication Instructions Recorded Confirmed Type ascorbic acid (vitamin C) 1,000 mg 1 gm PO BID 06/24/19 07/31/20 History tablet clobetasol 0.05 % topical cream 1 appln TOP DAILY 06/24/19 07/31/20 History melatonin 1 mg tablet 1 mg PO HS PRN 06/24/19 07/31/20 History montelukast 10 mg tablet 10 mg PO QPM 06/24/19 07/31/20 History multivitamin 1 cap PO QAM 06/24/19 07/31/20 History omega-3 fatty acids 1,000 mg 1,000 mg PO QAM 06/24/19 07/31/20 History capsule sildenafil 100 mg tablet 100 mg PO DAILY PRN 06/24/19 07/31/20 History zinc 50 mg tablet 50 mg PO QAM 06/24/19 07/31/20 History pzhhxcglrac-jnl-xdwcwzqkd-hrb 1 tab PO BID tab 06/28/19 07/31/20 History 149-hyalur 500 mg-500 mg-66.7 mg tablet inhalational spacing device #1 ea 06/28/19 07/05/20 Rx omeprazole 20 mg capsule,delayed 20 mg PO BID cap 06/28/19 07/31/20 History release azelastine 137 mcg (0.1 %) nasal 1 sprays INTNAS BID #30 ml 03/29/20 07/31/20 Rx spray aerosol hydrocodone 5 mg-acetaminophen 325 1 tab PO Q6H PRN 03/29/20 07/31/20 History mg tablet levocetirizine 5 mg tablet 5 mg PO DAILY PRN #60 tab 03/29/20 07/31/20 Rx budesonide-formoterol HFA 160 2 puffs INH BID #10.2 gm 04/23/20 07/31/20 Rx mcg-4.5 mcg/actuation aerosol inhaler Elderberry 1 dose PO QAM 07/05/20 07/31/20 History tiotropium bromide [Spiriva 2 puff INH QAM 07/05/20 07/31/20 History Respimat] Past Med/Surg History Medical History (Updated 07/31/20 @ 16:09 by Miguel Angel Busby MD) Chronic bronchitis Cirrhosis follows with Dr. Vivas. LFTs WNL on 07/09/20 labs. COPD (chronic obstructive pulmonary disease) Spiriva and Symbicort daily, uses albuterol PRN, has not used for 2 weeks currently. Esophageal varices with banding in past Esophageal varices with hemorrhage at least 15 years ago Former smoker GERD (gastroesophageal reflux disease) History of alcoholism Sober x 15yrs ago History of hepatitis A Knee osteoarthritis Osteoarthritis Psoriasis Pulmonary nodules Tinnitus Umbilical hernia Surgical History (Updated 07/31/20 @ 14:22 by Neto Marie MD) History of ankle surgery Rt History of cataract surgery History of colonoscopy History of esophagogastroduodenoscopy (EGD) History of hand surgery Left History of left knee surgery History of pelvic surgery History of wisdom tooth extraction Family History Other No family history of adverse response to anesthesia Social History Smoking Status: Former smoker Cigarettes Per Day: 20; Smoking End Date: quit 15 years ago; Second Hand Exposure: Yes (workplace exposure); Do You Dip or Chew Tobacco: No; Tobacco Cessation Education Requested by Patient: No Hx Alcohol Use: No (quit 15 years ago) Hx Substance Use: Yes Substance Use Type Other:: history of heroin use Preferred Language: Surinamese Communication Ability: Effective 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 Denies new or increased shortness of breath, cough, sputum production, difficulty breathing Gastrointestinal: Denies abdominal pain, nausea, vomiting, constipation, diarrhea. Endorses flatus. Last BM 2 days ago Genitourinary: Denies pain with urination, urinary urgency, urinary frequency Musculoskeletal: Endorses back pain and left knee pain as noted in HPI Integumentary:Denies rash, lesions, bruising Neurological: Headache as noted in HPI. Denies numbness, tingling, focal weakness Physical Exam Physical Exam: General: A&Ox3. NAD. Cooperative. Voice with normal prosody and volume, good eye contact. HEENT: Atraumatic, normocephalic. Pupils equal and responsive to light and accommodation. Extraocular movements intact. Visual acuity grossly intact, hearing grossly intact. Pulm: CTAB A&P. -wheezes, -rales, -rhonchi. Symmetrical chest rise. No increase work of breathing. No respiratory distress. Cardiac: RRR, -mrg. Radial pulses intact and symmetrical. PT pulses intact and symmetrical. Abdominal: Softly distended, nontender. BS present. Extremities: Upper extremities equally, upper extremity strength grossly intact and symmetrical. Right lower extremity atraumatic. Left lower extremity with knee postsurgical dressing/wrap and overlying icepack, C/D/I. No tenderness to palpation in thigh or lower leg. Left PT pulse intact and symmetrical with right. Active toe flexion/extension intact, sensation to soft touch in the toes intact and symmetrical. Results & Data Results & Data ([facility]) Vital Signs (Past 12 Hours) Vital Signs Temp Pulse Pulse Resp BP BP Pulse Ox 07/31/20 12:43 76 18 173/101 H 100 07/31/20 12:08 76 16 176/99 H 99 07/31/20 11:15 36.4 C L 73 14 154/99 H 98 07/31/20 11:00 72 14 147/88 H 98 07/31/20 10:50 68 14 156/96 H 96 07/31/20 10:41 36.3 C L 81 16 144/96 H 94 07/31/20 05:42 36.5 C 74 20 187/102 H 96 Code Status & VTE Plan VTE Prophylaxis Plan VTE Prophylaxis will be ordered: Yes Supervising Physician Co-Signing Physician Notes Attending Attestation & Consult Note: Pt seen/examined, chart reviewed, care plan d/w PGY3 Dr Neto Marie. I agree w/ the zamudio components of his documentation. 69yo male with prior alcohol dependence - now with sobriety for 15 years; h/o remote heroin use; ?cirrhosis; COPD - presented for elective left TKA today by Dr Busby. I saw patient on ortho floor post-op and he was getting ready to eat dinner. He stated he hadn't had a BM in 3 days and even then was quite constipated with small "balls" at that time. He feels bloated. Denies dyspnea or chest pain. PMH, PSH, allergies, meds, sochx, famhx - reviewed VSS, BPs mildly high gen - NAD neck - no JVD mouth - MMM heart - RRR, s1 s2, extra beats lungs - CTA b/l abd - distended, BS+ but decreased, NT, no HSM ext - left knee in large immobilizer; no peripheral edema; pulses feet 2+ b/l pre-op CBC, BMP noted to be normal COVID-19 screen negative recent EKG wnl (PACs, PVCs noted) urine cx neg A/P: 1. s/p left TKA 2. ?h/o cirrhosis 3. h/o alcohol dependence now in remission x 15 years 4. elevated BP without dx of HTN 5. abdominal distension with recent constipation 6. COPD w/o exacerbation agree w/ Dr Marie to simply follow BPs for now agree w/ Dr Marie that patient needs ongoing f/u for lung nodule -- note from Lung Nodule program dated 06/2020 confirms he has f/u imaging in 2020 would advise f/u with [facility] post-discharge on routine basis for his ??cirrhosis abdominal distension - likely due to constipation - add miralax to senna; follow carefully for development of ileus continue inhalers labs in Tito Wang MD Resident Activity Tracking Resident Involvement: Resident Care Provided Care Provided: Adult Hospital Medicine
[2020-07-31] MEDS ORDERED: ACETAMINOPHEN 500 MG TAB PO PRN (15:07)
[2020-07-31] MEDS: Scopolamine CHECK PATCH PLACEMENT SCH ×2 (15:39→23:13)
--- NOTE | 2020-07-31 16:13 | Orthopedic Progress Note ---
Date of Service July 31, 2020 Assessment & Plan (1) Knee osteoarthritis: POD #1 s/p L TKA, doing as well as expected. Resume diet. WBAT with walker, and knee immobilizer for 48 hours or is able to demonstrate excellent quad control. Knee immobilizer is only for transfers and ambulation for max of 48 hours as noted above. OOB to chair. Continue pain control. Check labs tomorrow. Change dressing, dry sterile dressing on postop day 2 or prior to discharge whichever comes first. DVT prophylaxis: TEDs 3 weeks, foot pumps while in hospital, ASA 81 mg BID for 6 weeks. PT/OT. Appreciate medicine input. D/C planning. Present on Admission?: Yes Admission and Anticipated Discharge Date Admission Date: July 31, 2020 Subjective Left knee pain Review of Systems Review of Systems: All systems reviewed & are unremarkable except as noted in HPI & below Physical Exam Physical Exam: LLE: Dressing clean, dry, intact. Calf soft and non-tender. BCR < 2 sec. Sensation 10 % less than opposite side, but unchanged from pre-op. Results & Data ([facility]) Vital Signs (Past 12 Hours) Vital Signs Temp Pulse Pulse Resp BP BP Pulse Ox 07/31/20 15:47 36.4 C L 78 16 158/98 H 93 07/31/20 14:56 84 18 161/100 H 96 07/31/20 13:30 78 18 161/92 H 99 07/31/20 12:43 76 18 173/101 H 100 07/31/20 12:08 76 16 176/99 H 99 07/31/20 11:30 36.5 C 74 16 173/92 H 99 07/31/20 11:15 36.4 C L 73 14 154/99 H 98 07/31/20 11:00 72 14 147/88 H 98 07/31/20 10:50 68 14 156/96 H 96 07/31/20 10:41 36.3 C L 81 16 144/96 H 94 07/31/20 05:42 36.5 C 74 20 187/102 H 96 Diagnostic Findings AP & Lateral Left knee showed expected findings following cemented L TKA. Components in good position.
[2020-07-31] MEDS: FERROUS GLUCONATE 324 MG TAB PO SCH (17:47)
[2020-07-31] MEDS: DOCUSATE SODIUM 100 MG CAP PO SCH (20:22)
[2020-07-31] MEDS: ASCORBIC ACID 500 MG TAB PO SCH (20:23)
[2020-07-31] MEDS: PANTOprazole 40 MG TAB PO SCH (20:23)
[2020-07-31] MEDS ORDERED: SENNA 8.6 MG TAB PO SCH (21:00)
[2020-07-31] MEDS ORDERED: MONTELUKAST SODIUM 10 MG TABLET PO SCH (21:00)
--- NOTE | 2020-07-31 23:08 | Billing Data ---
Date of Service July 31, 2020 Coding Level of Care Code 25965 Inpt Consult Level 3
[2020-08-01] MEDS: KETOROLAC TROMETHAMINE 15 MG/ML VIAL IV SCH ×2 (01:37→07:28)
[2020-08-01 05:54] LABS: Hematocrit (blood only) 37.2 % (42-52); Hemoglobin 12.3 g/dL (14.0-18.0); Mean Corpuscular Hemoglobin 29.6 pg (25-34); Mean Corpuscular Hgb Conc 33.1 g/dL (32-36); Mean Corpuscular Volume 89.4 fL (80-100); Mean Platelet Volume 10.6 fL (7.4-10.4); Platelet Count 243 K/uL (130-400); RDW Standard Deviation 45.9 fL (36.4-46.3); Red Blood Count 4.16 M/uL (4.7-6.1); White Blood Count 13.25 K/uL (4.8-10.8)
[2020-08-01 06:33] LABS: BUN Creatinine Ratio 19.1 (10-20); Calcium 8.5 mg/dl (8.5-10.1); Creatinine Clr Calc Pharmacy 125.7 ml/min; Est GFR (African American) 116.5; Est GFR (Non-African American) 100.5; Potassium 3.5 mmol/L (3.5-5.1)
[2020-08-01] MEDS: OXYCODONE HCL IR 5 MG TAB (IMMEDIATE RELEASE) PO PRN (07:28)
[2020-08-01] MEDS: Scopolamine CHECK PATCH PLACEMENT SCH (07:33)
--- NOTE | 2020-08-01 08:41 | Orthopedic Progress Note ---
Date of Service August 01, 2020 Assessment & Plan (1) Knee osteoarthritis: POD #1 s/p L TKA, doing as well as expected, last dose of IV pain medicine 7am. Patient would like to be discharged home. Resume diet. WBAT with walker, and knee immobilizer for 48 hours or is able to demonstrate excellent quad control. Knee immobilizer is only for transfers and ambulation for max of 48 hours as noted above. OOB to chair. Continue pain control. Change dressing, dry sterile dressing on postop day 2-3. DVT prophylaxis: TEDs 3 weeks, foot pumps while in hospital, ASA 81 mg BID for 6 weeks. PT/OT. Appreciate medicine input, cleared to be discharged home. D/C planning. Will re-check in pm; if pain controlled with oral pain medicine he may be discharged home. Admission and Anticipated Discharge Date Admission Date: July 31, 2020 Subjective Doing better Review of Systems Review of Systems: All systems reviewed & are unremarkable except as noted in HPI & below Physical Exam Physical Exam: LLE: Dressing clean, dry, intact. Calf soft and non-tender. BCR < 2 sec. Sensation to light touch unchanged from pre-op. Results & Data ([facility]) Vital Signs (Past 12 Hours) Vital Signs Temp Pulse Resp BP Pulse Ox 08/01/20 08:29 36.8 C 89 18 165/98 H 97 08/01/20 03:09 36.7 C 81 14 160/92 H 94 07/31/20 23:10 36.9 C 87 14 153/88 H 94 Laboratory Results 08/01/20 08/01/20 Range/Units 05:32 05:32 WBC 13.25 H (4.8-10.8) K/uL RBC 4.16 L (4.7-6.1) M/uL Hgb 12.3 L (14.0-18.0) g/dL Hct 37.2 L (42-52) % MCV 89.4 (80-100) fL MCH 29.6 (25-34) pg MCHC 33.1 (32-36) g/dL RDW Std Deviation 45.9 (36.4-46.3) fL RDW Coeff of Bandar 14.0 (11.5-14.5) % Plt Count 243 (130-400) K/uL MPV 10.6 H (7.4-10.4) fL Sodium 139 (136-145) mmol/L Potassium 3.5 (3.5-5.1) mmol/L Chloride 105 (98-107) mmol/L Carbon Dioxide 30 (21-32) mmol/L Anion Gap 4.0 (3-11) BUN 12 (7-18) mg/dl Creatinine 0.61 (0.6-1.4) mg/dl Est Cr Clr Drug Dosing 125.7 ml/min Est GFR ( Amer) 116.5 Est GFR (Non-Af Amer) 100.5 BUN/Creatinine Ratio 19.1 (10-20) Glucose 99 (70-99) mg/dl Calcium 8.5 (8.5-10.1) mg/dl
[2020-08-01] MEDS ORDERED: UMECLIDINIUM BROMIDE 62.5MCG/BLISTER 7 PUFFS/INHALER INH SCH (09:00)
[2020-08-01] MEDS ORDERED: MULTIVITAMIN TAB PO SCH (09:00)
[2020-08-01] MEDS ORDERED: POLYETHYLENE (MIRALAX) 17 GM PACK PO SCH (09:00)
[2020-08-01] MEDS ORDERED: ZINC SULFATE 220 MG CAPSULE PO SCH (09:00)
[2020-08-01] MEDS ORDERED: ELDERBERRY PO SCH (09:00)
[2020-08-01] MEDS ORDERED: FLUTICASONE/VILANTEROL 100/25MCG 14 PUFFS/INHALER INH SCH (09:00)
[2020-08-01] MEDS ORDERED: NON-FORMULARY MEDICATION (Multivitamin 1 CAP) PO SCH (09:00)
[2020-08-01] MEDS: DOCUSATE SODIUM 100 MG CAP PO SCH (09:30)
[2020-08-01] MEDS: PANTOprazole 40 MG TAB PO SCH (09:30)
[2020-08-01] MEDS: ASCORBIC ACID 500 MG TAB PO SCH (09:30)
[2020-08-01] MEDS: ASPIRIN 81 MG ECTAB PO SCH ×2 (09:30→10:22)
[2020-08-01] MEDS: FERROUS GLUCONATE 324 MG TAB PO SCH (09:30)
--- NOTE | 2020-08-01 13:45 | Discharge Summary ---
Date of Service August 01, 2020 Principal Diagnosis Left knee osteoarthritis Discharge Data Allergies Allergy/AdvReac Type Severity Reaction Status Date / Time latex Allergy Unknown Rash Verified 07/31/20 05:36 No Known Drug Allergies Allergy Unknown . Verified 07/31/20 05:36 adhesive AdvReac Mild RASH Verified 07/31/20 05:36 Consultations 07/31/20 10:58 Consult Case Management - Discharge Planning Routine Consult Hospitalist Routine Procedures Performed Operation Date: 07/31/20 07:00 Actual Procedures p Left Total Knee Arthroplasty(Left) - Miguel Angel Hermilo Busby MD Ordered Studies 07/31/20 07:05 US - OR guided needle placemen Routine Hospital Course (1) Knee osteoarthritis: Neftaly Givens is a pleasant 69-year-old male with a past medical history of alcoholic cirrhosis with alcohol use in remission, esophageal varices, COPD, and knee arthritis. He underwent a LTKR by Dr Busby on 07-31-20. Surgery was without complications. He was admitted to the floor under observation. He received 24hr post-op antibiotics. Hospitalist was consulted for post-op medical management. Patients BP ran slightly high inhouse, but patient asymptomatic. Medicine recommended monitoring for now. Otherwise VS and POD 1 AM BW wnl. Able to void. Patient without BM but BS present and given medication for constipation/bloating. Patient tolerated PO diet and fluids. Patients pain controlled by POD 1 on PO pain meds only. He tolerated PT/OT. WBAT with walker and knee immobilizer. Post-op dressings intact. DVT prophylaxis in house consisted of ASA 81mg BID, TEDS, foot pumps. Dr Busby saw patient on POD 1 and deemed him stable for discharge. Patient denying f/c/s, CP, SOB, N/V, lightheadedness or dizziness, abdominal pain. He will go home with his and home health PT ordered. Upon discharge patient will continue WBAT with walker and can stop immobilizer tomorrow if has good quad control. He will leave post-op dressings on until Thursday. He will continue with TEDs x 3wks, and ASA 81mg BID x 6wks. Scripts for tylenol, iron, and oxycodone sent to pharmacy. He will continue medication for constipated PRN. He will follow-up with the office in 2wks. He was advised to call the office or go to the ED with any questions or concerns. Please see below for further Discharge Instructions in more detail. Total Time Total Time Spent Total Time Spent (In Minutes): 20min Discharge Plan Discharge Items Patient Disposition: Home - Self-Care Reason For Visit: Left Knee Osteoarthritis Discharge Diagnosis: Left Knee Osteoarthritis Activity: Per Instructions section Bathing: Keep incision dry Bathing Comment: Post-op dressings can be removed Thursday. May shower but not submerge. Exercise Comment: per physical therapy protocol Driving/Machine Use: no driving until seen in office Weightbearing: Left weightbearing Weightbearing Comment: as tolerated with walker as needed Non-emergency contact: Surgeon Call non-emergency contact if: your pain is not controlled, your temperature is above 101.5, your wound has increased redness and your wound has increased drainage Follow-up/Referrals: Jorge Beckwith MD [Primary Care Provider] - Keyla Greene P.A.-C. [Physician Distance Education Director] - 08/13/20 1:00 pm (with Gladys Greene PA-C) Diet: Regular Addtl Attending Provider Instructions: Post-operative Instructions Pain Expect to be in a fair amount of pain after surgery. Remember, our goal is not to eliminate your pain, but to make it tolerable. It is a good idea to stay ahead of your pain by taking the medications you were prescribed once you get home. Typically, the pain starts improving 3-7 days after surgery. You should start weaning off the narcotic pain medication (oxycodone) as soon as your pain improves. Please call our office if your pain is not adequately controlled. You can take tylenol 1000mg every 8hrs for mild to moderate pain. Ice Ice your operative site at least 5 times a day for 15-30 minutes at a time. Make sure you have a thin cloth between the ice or cooling unit and your skin to prevent hamilton bite. This is especially important if you received a nerve block. Continue icing your operative site for the first 5-7 days after surgery, then as needed. Diet/Nausea/Vomiting Start by drinking clear liquids and eating crackers. If you can tolerate this, then you may resume your normal diet. If you feel nauseated or vomit, take Zofran/ondansetron (if prescribed). Please call our office if you have intractable nausea or vomiting, or, if after hours, you may go to the Emergency Room for help. Constipation Constipation is a common side effect of narcotic pain medication. If you have not had a bowel movement within 2 days after surgery, we recommend purchasing an over the counter laxative such as Milk of Magnesia, Dulcolax, or Miralax from a local pharmacy, and taking it as instructed. Call our clinic if any questions. Weight bearing and Range of Motion. Weightbearing as tolerated with walker. No restrictions with range of motion. *KNEE IMMOBILIZER x 48hrs AFTER SURGERY WHILE AMBULATING AND THEN CAN STOP (CONTINUE IF YOU DO NOT HAVE GOOD QUAD CONTROL)* Physical therapy Initially you will start with home health physical therapy. At our first visit with at our office we will provide you with script for outpatient physical therapy. Wound care and showering You can remove your post-op dressings on Thursday08-03-20. You can apply a dry dressing with GORDY if needed. You can shower but no submerge. Dont scrub wound. Your tammie will be removed at your 2wk follow-up appointment. SOUMYA stockings If you were given white stockings, these are to be worn at all times except to shower and sleep (on both legs) for the first 2 weeks after surgery. We will discuss removal at your first follow-up appointment. Driving You may not drive while taking narcotic pain medication. We will discuss return to driving at your first follow-up appointment. Return To Work Your return to work depends on what surgery was done and what type of work you do. Please bring any paperwork your employer needs completed to your first post-operative visit. Also, bring a description of your job duties, as this helps us to understand what risks you may face at work. Travel Avoid long distance travel (greater than 1 hour) in airplanes and cars for the first 6 weeks after surgery if possible. If you must travel, please let us know so we can discuss additional measures to prevent blood clots. Follow-up You should have a follow-up appointment already scheduled for 2 weeks after surgery. If not, please contact our office to make this appointment before you leave the hospital. When to call the office [phone] It is normal to have swelling and bruising in the limb that was operated on. This will improve with time. It is also normal to have fevers for the first 2 days after surgery. Reasons you should call your doctor include: Uncontrolled pain; Nausea, vomiting, or constipation that does not improve with medication; Fevers over 101.5, chills, sweats; Drainage or bleeding from the wound; Foul od or; Spreading areas of redness; Any other concerns. NEW MEDICATIONS: new medications: oxycodone, iron, vit c, tylenol, aspirin. All were sent to the pharmacy. You can purchase all but oxycodone over the counter if you choose. PLEASE ALSO FOLLOW-UP WITH YOUR PCP REGARDING ELEVATED BLOOD PRESSURE DURING YOUR HOSPITAL STAY Addtl Care Services Manager Provider Instructions: During a review of your records you were noted to have had a screening lung CT scan on 01/03/2020 which showed a new solid nodule in the lower lung which was most likely benign (noncancerous), but which was recommended for a follow-up low-dose CT scan in 6 months. Please follow-up with your outpatient primary care provider Dr. Beckwith after discharge to schedule this follow-up CT scan if you have not already done so. Pending Studies at Discharge: No Stand-Alone Forms: [facility], Opioid Pain Management, Smoking Cessation Medications and DC Order Prescriptions: New aspirin 81 mg Tablet,Delayed Release (Dr/Ec) 81 mg PO BID 42 Days Qty: 84 RF: 0 oxycodone 5 mg Tablet 5 - 10 mg PO Q4H PRN (Reason: pain) Qty: 30 RF: 0 ferrous gluconate 324 mg (38 mg iron) Tablet 324 mg PO BIDM 14 Days Qty: 28 RF: 0 acetaminophen 500 mg Tablet 500 mg PO Q6H PRN (Reason: pain) Qty: 60 RF: 0 Continued Symbicort 160-4.5 mcg/actuation HFA aerosol inhaler 2 puffs INH BID Qty: 10.2 RF: 5 clobetasol 0.05 % cream 1 appln TOP DAILY RF: 0 melatonin 1 mg tablet 1 mg PO HS PRN (Reason: Sleep) RF: 0 multivitamin capsule 1 cap PO QAM RF: 0 montelukast [Singulair] 10 mg tablet 10 mg PO QPM RF: 0 sildenafil [Viagra] 100 mg tablet 100 mg PO DAILY PRN (Reason: Erectile Dysfunction) RF: 0 ascorbic acid (vitamin C) 1,000 mg tablet 1 gm PO BID RF: 0 zinc 50 mg tablet 50 mg PO QAM RF: 0 omeprazole 20 mg capsule,delayed release(DR/EC) 20 mg PO BID RF: 0 (DME) Aerochamber MV spacer See Dose Instructions .ROUTE .MEDSUPPLY Qty: 1 RF: 0 levocetirizine 5 mg tablet 5 mg PO DAILY PRN (Reason: allergy symptoms) Qty: 60 RF: 3 azelastine 137 mcg (0.1 %) aerosol,spray 1 sprays INTNAS BID Qty: 30 RF: 2 Spiriva Respimat 2.5 mcg/actuation mist 2 puff INH QAM RF: 0 Elderberry 1 dose PO QAM RF: 0 Discontinued omega-3 fatty acids 1,000 mg capsule 1,000 mg PO QAM RF: 0 [id number] [[id number] (with antiox)] 500-500-66.7 mg tablet 1 tab PO BID RF: 0 hydrocodone-acetaminophen [Solon] 5-325 mg tablet 1 tab PO Q6H PRN (Reason: Pain) RF: 0 Discharge Orders: Discharge Order (Routine); Ordered 08/01/20 Ordered By: Keyla Perez/Other Patient Handouts: DVT Post Op Prevention Admission Data Admit Date/Time: 07/31/20 10:58 Attending Provider: Miguel Angel Busby Admit Provider: Miguel Angel Busby Primary Care Provider: Jorge Beckwith Other Providers: Jorge Beckwith ; Suleman Ken [facility] Other Interventions: Discharge Summary Assessment (RN) Last Done: 08/01/20 13:29
== END 2020-08-01 14:19 | disposition home health service (06) ==
LOC: 3E 05:10 → ASU 05:10

== ENCOUNTER 2024-10-28 13:24 | Inpatient (IN) ==
[2024-10-28] MEDS ORDERED: STAT IV Infusion **Titration per Protocol STA (14:08)
--- NOTE | 2024-10-28 14:13 | Emergency Department Note ---
Impression & Plan Atrial fibrillation with RVR, Leukocytosis ED Provider Note NAME: TAWANA DURAN AGE: 73 SEX: M : 1950 ARRIVES VIA: Walk-In INFORMANT: Patient ED PROVIDER(S): Gumaro Mcfadden DO CHIEF COMPLAINT: Shortness of breath, palpitations HPI: Patient is a 73-year-old male with a past medical history of CVA, COPD, pulmonary hypertension who presents to the ER for upper respiratory symptoms that initially started about a month ago. He has been on antibiotics and 2 rounds of steroids. He notes he feels short of breath currently and he feels his heart racing. He notes at rest he has no shortness of breath but when he gets up and moves around he has shortness of breath. Denies any belly pain, nausea, vomiting, or diarrhea. No dysuria, urgency, or frequency. No other exacerbating or remitting factors. ADDITIONAL HISTORY OBTAINED: Per HPI Chronic Medical/Social Conditions Affecting Care: Per HPI PAST MEDICAL HISTORY:See Below PAST SURGICAL HISTORY:See Below FAMILY HISTORY:See Below SOCIAL HISTORY:See Below HOME MEDICATIONS:See Below ALLERGIES:See Below VITALS:See Below PHYSICAL EXAMINATION: GENERAL: Sitting up in bed, alert, well appearing, well nourished, no distress, non-toxic EYE EXAM: normal conjunctiva. OROPHARYNX: mucous membranes are moist NECK: supple, no nuchal rigidity, no adenopathy, non-tender LUNGS: Clear to auscultation. Normal chest wall mechanics HEART: tachycardic and irregular regular, S1 normal and S2 normal ABDOMEN: abdomen soft, non-tender, normo-active bowel sounds, no masses, no rebound or guarding. UPPER EXTREMITIES: upper extremities are grossly normal. LOWER EXTREMITIES: No pitting edema. NEURO EXAM: Normal sensorium, cranial nerves II-XII grossly intact, normal speech, no gross weakness of arms, no gross weakness of legs. MEDICAL DECISION MAKING: Patient is a 73-year-old male who presents ER for the above-stated complaint. IV was established blood work was obtained. Labs show mild leukocytosis of 13.3 thousand. No significant anemia. BMP along with LFTs bilirubin is unremarkable. Troponin was negative. Lipase was normal. Chest x-ray with likely atelectasis per radiology. Patient was placed on Cardizem drip and given a bolus. Heart rate trended down from 140s to low 100. Patient was updated bedside. Discussed case with the hospitalist for further evaluation management treatment and admission for A-fib with RVR. Consults/Care Managements Discussions: Per MDM Triage Nursing notes reviewed. Limited review of prior medical records performed Vital Signs: reviewed and remarkable for tachy and htn Differential diagnosis: Cardiac ischemia, aortic dissection, pulmonary embolism, pneumothorax, pneumonia, pericarditis, myocarditis, esophageal rupture, GERD, cholecystitis, pancreatitis, musculoskeletal, as well as other pathologies. ER treatment provided: See below Diagnostics interpreted by me include EKG and cardiac monitoring as listed below: -Cardiac Monitoring: An order was placed for continuous cardiac monitoring. The monitor shows a rate of 155 with afib rhythm. -ECG: A-fib rate of 157 Normal axis No PVCs QTc 470 -Laboratory studies:Interpreted by me as stated above in MDM and shown below. Imaging studies: Xrays: As interpreted by me: Portable AP upright 1 view of the chest shows subtle opacities at the bases CTs show: none Procedures:none Critical Care: I have personally spent 32 minutes of critical care time in the direct management of this patient. This includes bedside care, interpretation of diagnostic studies, and testing, discussion with consultants, patient, and family members, and other required patient management activities. This 32 minutes is in excess of all separately billable procedures. Past Med/Surg History Problem List Leukocytosis (Acute) Atrial fibrillation with RVR (Acute) Cerebrovascular disease Tremor Visual hallucinations Esophageal varices with bleeding Encounter for pre-operative examination Encounter for pre-operative examination Former tobacco use Obstructive pattern present on pulmonary function testing Cough COPD with emphysema Chronic bronchitis Pulmonary nodule Exertional shortness of breath Seasonal allergies History of left knee surgery Status post left knee replacement Pulmonary hypertension History of left knee surgery Medical History KENAITZE (hard of hearing) Knee osteoarthritis Encounter for pre-operative examination History of alcoholism Chronic bronchitis Former smoker Osteoarthritis Esophageal varices Esophageal varices with hemorrhage History of hepatitis A Cirrhosis GERD (gastroesophageal reflux disease) Tinnitus Umbilical hernia COPD (chronic obstructive pulmonary disease) Pulmonary nodules Psoriasis Surgical History History of total left knee replacement History of hand surgery History of wisdom tooth extraction History of cataract surgery History of ankle surgery History of pelvic surgery History of esophagogastroduodenoscopy (EGD) History of colonoscopy Family History Other No family history of adverse response to anesthesia Social History Smoking Status: Never smoker Tobacco Type: Cigarettes Age Started Using Tobacco: 11; Age Quit Using Tobacco: 53; packs per day: 1; Second Hand Exposure: Yes (workplace exposure); Do You Dip or Chew Tobacco: No; Hx Substance Use: Yes Substance Use Type Other:: history of heroin use Preferred Language: Kiswahili Communication Ability: Effective Communication Ability Comment: PT KENAITZE, PT BRITTNEY (HIPPA CONTACT) DOES PHONE INTERVIEW Visual Impairment: No Limitations 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 Beliefs That Will Affect Care: None marital status: Current Living Situation: Spouse Feels Safe at Home: Yes Assistive Devices: Hearing Aid - Bilateral and Other Allergies Allergies Allergy/AdvReac Type Severity Reaction Status Date / Time latex Allergy Unknown Rash Verified 09/20/24 12:24 [id number] Reductase AdvReac Intermediate Muscle Pain Verified 09/20/24 12:24 Inhibitor adhesive AdvReac Mild RASH Verified 09/20/24 12:24 Home Meds Home Medications Medication Instructions Recorded Confirmed ascorbic acid (vitamin C) 1,000 mg 1 gm PO BID 06/24/19 10/28/24 tablet melatonin 1 mg tablet 1 mg PO HS PRN Sleep 06/24/19 10/28/24 hydrocodone 5 mg-acetaminophen 325 1 tab PO UD PRN ARTHRITIC PAIN 03/19/22 10/28/24 mg tablet levocetirizine 5 mg tablet 10 mg PO QPM PRN allergy symptoms 02/09/23 10/28/24 elderberry fruit 50 mg/5 mL oral 0 mg PO UD 10/28/24 10/28/24 syrup omeprazole 40 mg capsule,delayed 40 mg PO DAILY 10/28/24 10/28/24 release zinc gluconate 50 mg tablet 50 mg PO QAM 10/28/24 10/28/24 Previous Rx's Medication Instructions Recorded inhalational spacing device #1 ea 06/28/19 (Aerochamber MV spacer) albuterol sulfate 90 mcg/actuation 2 puff inhalation Q6H PRN COPD 02/11/23 aerosol inhaler #8.5 grams tiotropium bromide 2.5 2 puff inhalation DAILY #4 grams 03/07/24 mcg/actuation mist for inhalation (Spiriva Respimat) budesonide 0.25 mg/2 mL suspension 0.25 mg (2 mL) inhalation BID #60 06/09/24 for nebulization mL formoterol fumarate 20 mcg/2 mL 2 ml inhalation BID #120 mL 06/09/24 solution for nebulization (Perforomist) nebulizers (Aeroneb Go Nebulizer) #1 ea 06/09/24 Results & Data (ED) Vital Signs Vital Signs - 24 hr 10/28/24 13:49 10/28/24 14:11 10/28/24 14:11 Temperature 37 C 36.9 C Temperature Source Temporal Artery Scan Oral Pulse Rate 163 H Pulse Rate [Right Finger] 127 H Pulse Rate from SpO2 Sensor Respiratory Rate 18 31 H Respiratory Effort / Characteristics Non-Labored Spontaneous Short of Breath SOB on Exertion Respiratory Depth Normal Respiratory Pattern Regular Blood Pressure 147/109 H Blood Pressure [Right Arm] 133/87 Blood Pressure Mean 121 Blood Pressure Mean [Right Arm] 102 Blood Pressure Position [Right Arm] Sitting Pulse Oximetry 94 97 96 Oxygen Delivery Method Room Air Room Air Room Air Sepsis Recent Fever Within 48 Hours No Sepsis New/Unexplained Change in Mental Status N/A Sepsis Action Taken by Nursing No Action Required 10/28/24 14:27 10/28/24 14:28 10/28/24 14:35 Temperature Temperature Source Pulse Rate Pulse Rate [Right Finger] 117 H Pulse Rate from SpO2 Sensor Respiratory Rate 22 Respiratory Effort / Characteristics Respiratory Depth Respiratory Pattern Blood Pressure 122/86 129/79 Blood Pressure [Right Arm] 122/86 Blood Pressure Mean 96 83 Blood Pressure Mean [Right Arm] 98 Blood Pressure Position [Right Arm] Sitting Pulse Oximetry 94 Oxygen Delivery Method Room Air Sepsis Recent Fever Within 48 Hours Sepsis New/Unexplained Change in Mental Status Sepsis Action Taken by Nursing 10/28/24 14:39 10/28/24 14:45 10/28/24 14:50 Temperature Temperature Source Pulse Rate 89 Pulse Rate [Right Finger] Pulse Rate from SpO2 Sensor 88 Respiratory Rate 28 H Respiratory Effort / Characteristics Respiratory Depth Respiratory Pattern Blood Pressure 122/86 126/83 Blood Pressure [Right Arm] Blood Pressure Mean 88 102 Blood Pressure Mean [Right Arm] Blood Pressure Position [Right Arm] Pulse Oximetry 95 Oxygen Delivery Method Sepsis Recent Fever Within 48 Hours Sepsis New/Unexplained Change in Mental Status Sepsis Action Taken by Nursing 10/28/24 14:50 10/28/24 14:51 10/28/24 15:45 Temperature Temperature Source Pulse Rate 99 H Pulse Rate [Right Finger] Pulse Rate from SpO2 Sensor Respiratory Rate Respiratory Effort / Characteristics Respiratory Depth Respiratory Pattern Blood Pressure 126/83 Blood Pressure [Right Arm] Blood Pressure Mean 102 Blood Pressure Mean [Right Arm] Blood Pressure Position [Right Arm] Pulse Oximetry 97 Oxygen Delivery Method Room Air Sepsis Recent Fever Within 48 Hours Sepsis New/Unexplained Change in Mental Status Sepsis Action Taken by Nursing 10/28/24 15:55 10/28/24 16:01 10/28/24 16:05 Temperature Temperature Source Pulse Rate Pulse Rate [Right Finger] Pulse Rate from SpO2 Sensor Respiratory Rate Respiratory Effort / Characteristics Respiratory Depth Respiratory Pattern Blood Pressure 132/103 H 147/84 H 134/105 H Blood Pressure [Right Arm] Blood Pressure Mean 113 111 110 Blood Pressure Mean [Right Arm] Blood Pressure Position [Right Arm] Pulse Oximetry Oxygen Delivery Method Sepsis Recent Fever Within 48 Hours Sepsis New/Unexplained Change in Mental Status Sepsis Action Taken by Nursing 10/28/24 16:09 10/28/24 16:36 10/28/24 17:30 Temperature Temperature Source Pulse Rate 90 86 92 H Pulse Rate [Right Finger] Pulse Rate from SpO2 Sensor 94 H 90 95 H Respiratory Rate 16 22 19 Respiratory Effort / Characteristics Respiratory Depth Respiratory Pattern Blood Pressure 143/96 H 139/105 H 127/98 Blood Pressure [Right Arm] Blood Pressure Mean 111 116 107 Blood Pressure Mean [Right Arm] Blood Pressure Position [Right Arm] Pulse Oximetry 95 96 98 Oxygen Delivery Method Sepsis Recent Fever Within 48 Hours Sepsis New/Unexplained Change in Mental Status Sepsis Action Taken by Nursing 10/28/24 17:54 Temperature Temperature Source Pulse Rate 89 Pulse Rate [Right Finger] Pulse Rate from SpO2 Sensor 87 Respiratory Rate 24 Respiratory Effort / Characteristics Respiratory Depth Respiratory Pattern Blood Pressure 137/96 Blood Pressure [Right Arm] Blood Pressure Mean 109 Blood Pressure Mean [Right Arm] Blood Pressure Position [Right Arm] Pulse Oximetry 99 Oxygen Delivery Method Sepsis Recent Fever Within 48 Hours Sepsis New/Unexplained Change in Mental Status Sepsis Action Taken by Nursing Laboratory Data 10/28/24 14:04 01/03/25 14:04 Lab Results 10/28/24 Range/Units 14:04 WBC 13.30 H (4.8-10.8) K/ul RBC 4.77 (4.70-6.10) M/uL Hgb 14.0 (14.0-18.0) g/dl Hct 43.5 (42.0-52.0) % MCV 91.2 (80.0-100.0) fL MCH 29.4 (25.0-34.0) pg MCHC 32.2 (32.0-36.0) g/dL RDW Std Deviation 52.7 H (36.4-46.3) fL RDW Coeff of Bandar 15.8 H (11.5-14.5) % Plt Count 260 (130-400) K/uL MPV 10.7 (9.4-12.4) fL Immature Gran % (Auto) 0.5 % Neut % (Auto) 81.1 % Lymph % (Auto) 9.0 % Tyler % (Auto) 8.3 % Eos % (Auto) 0.8 % Baso % (Auto) 0.3 % Neut # (Auto) 10.79 H (1.40-6.50) K/uL Lymph # (Auto) 1.20 (1.20-3.40) K/uL Tyler # (Auto) 1.10 H (0.11-0.59) K/uL Eos # (Auto) 0.11 (0.00-0.50) K/uL Baso # (Auto) 0.04 (0.00-0.20) K/uL Immature Gran # (Auto) 0.06 (0.01-0.20) K/uL Sodium 142 (136-145) mmol/L Potassium 4.3 (3.5-5.1) mmol/L Chloride 105 (98-107) mmol/L Carbon Dioxide 31 (21-32) mmol/L Anion Gap 6 (3-11) BUN 27 H (6-23) mg/dl Creatinine 0.82 (0.6-1.4) mg/dl Est Cr Clr Drug Dosing 90.6 ml/min eGFR 91.61 BUN/Creatinine Ratio 32.9 H (10-20) Glucose 95 (70-99(Fasting)) mg/dl Calcium 9.4 (8.6-10.3) mg/dl Total Bilirubin 0.6 (0.2-1.0) mg/dl AST 31 (13-39) U/L ALT 53 H (7-52) U/L Alkaline Phosphatase 70 (34-104) U/L Troponin I High Sens 17.9 (0-20) pg/ml Total Protein 6.9 (6.0-8.3) gm/dl Albumin 4.3 (3.4-5.0) gm/dl Globulin 2.6 (2.5-4.0) gm/dl Albumin/Globulin Ratio 1.7 (0.9-2) Lipase 19 (11-82) U/L Administered Medications Diltiazem HCl 125 mg/ Dextrose 125 mls @ 5 mls/hr IV .Q24H [facility]; Protocol Stop: 11/27/24 14:14 Last Admin: 10/28/24 14:20 Dose: 5 mg/hr, 5 mls/hr Documented By: NIKKI Co-signed By: [facility] Discontinued Medications Diltiazem HCl (Diltiazem Hcl 5 Mg/Ml 5 Ml Vial) 10 mg IV NOW STA Stop: 10/28/24 14:09 Last Admin: 10/28/24 14:14 Dose: 10 mg Documented By: NIKKI Co-signed By: [facility] Imaging Data Radiologist's Impression: Chest X-Ray 10/28/24 14:08 XR chest 1V portable CLINICAL HISTORY: Chest pain, nonspecific COMPARISON STUDY: Chest CT February 08, 2024. Chest radiograph September 21, 2024. FINDINGS: There is no pneumothorax or pleural effusion. Cardiomegaly is unchanged. There is pulmonary vascular congestion. Minimal bibasilar opacities favor atelectasis. IMPRESSION: 1. Cardiomegaly with pulmonary vascular congestion. 2. Minimal bibasilar opacities which favor atelectasis. Although less likely, an infectious process could appear similar. Radiographic follow-up is recommended. ACT 112: Negative or not required by law. Electronically signed by: Yobani Miller M.D. 10/28/2024 3:11 PM Discharge Plan Visit Data Chief Complaint: Shortness of Breath/Dyspnea Stated Complaint: SOB/HAS COPD, 6WKS ED Provider: Gumaro Mcfadden Discharge Problem: Atrial fibrillation with RVR, Leukocytosis Forms Stand Alone Forms: [facility] [employer] Prescriptions Prescriptions: No Action melatonin 1 mg tablet 1 mg PO HS PRN (Reason: Sleep) ascorbic acid (vitamin C) 1,000 mg tablet 1 gm PO BID (DME) Aerochamber MV spacer See Dose Instructions .ROUTE .MEDSUPPLY Qty: 1 0RF Dose Instruction: As directed Rx Instructions: As directed use with symbicort and ventolin albuterol sulfate 90 mcg/actuation HFA aerosol inhaler 2 puff inhalation Q6H PRN (Reason: COPD) Qty: 8.5 3RF Spiriva Respimat 2.5 mcg/actuation mist 2 puff inhalation DAILY Qty: 4 12RF formoterol fumarate [Perforomist] 20 mcg/2 mL solution for nebulization 2 ml inhalation BID Qty: 120 8RF budesonide 0.25 mg/2 mL suspension for nebulization 0.25 mg inhalation BID Qty: 60 8RF (DME) nebulizers [Aeroneb Go Nebulizer] Misc See Rx Instructions .MEDSUPPLY Qty: 1 0RF Rx Instructions: With tubing and supplies. J44.9. J45.9. hydrocodone-acetaminophen 5-325 mg Tablet 1 tab PO UD PRN (Reason: ARTHRITIC PAIN) levocetirizine 5 mg tablet 10 mg PO QPM PRN (Reason: allergy symptoms) omeprazole 40 mg capsule,delayed release(DR/EC) 40 mg PO DAILY elderberry fruit 50 mg/5 mL Syrup 0 mg PO UD zinc gluconate 50 mg Tablet 50 mg PO QAM Referrals Referrals: John Beckwith MD [Primary Care Provider] - Discharge Problem: Leukocytosis Qualifiers: Leukocytosis type: unspecified Qualified Code(s): D72.829 - Elevated white blood cell count, unspecified
[2024-10-28] MEDS: dilTIAZem HCl 5 MG/ML 5 ML VIAL IV STA (14:14)
[2024-10-28] MEDS: dilTIAZem HCL 125 MG in DEXTROSE 5% 100 ML IV SCH (14:20)
[2024-10-28 14:23] LABS: Basophils # (auto) 0.04 K/uL (0.00-0.20); Basophils % (auto) 0.3 %; Eosinophils # (auto) 0.11 K/uL (0.00-0.50); Eosinophils % (auto) 0.8 %; Hematocrit (blood only) 43.5 % (42.0-52.0); Immature Granulocytes # (auto) 0.06 K/uL (0.01-0.20); Immature Granulocytes % (auto) 0.5 %; Mean Corpuscular Hemoglobin 29.4 pg (25.0-34.0); Mean Corpuscular Hgb Conc 32.2 g/dL (32.0-36.0); Mean Corpuscular Volume 91.2 fL (80.0-100.0); Mean Platelet Volume 10.7 fL (9.4-12.4); Monocytes % (auto) 8.3 %; Neutrophils # (auto) 10.79 K/uL (1.40-6.50); Neutrophils % (auto) 81.1 %; Platelet Count 260 K/uL (130-400); RDW Coefficient of Variation 15.8 % (11.5-14.5); RDW Standard Deviation 52.7 fL (36.4-46.3); Red Blood Count 4.77 M/uL (4.70-6.10)
[2024-10-28 14:44] LABS: Albumin Globulin Ratio 1.7 (0.9-2); Albumin Level 4.3 gm/dl (3.4-5.0); BUN Creatinine Ratio 32.9 (10-20); Bilirubin,Total 0.6 mg/dl (0.2-1.0); Calcium 9.4 mg/dl (8.6-10.3); Creatinine Clr Calc Pharmacy 90.6 ml/min; Globulin 2.6 gm/dl (2.5-4.0); Potassium 4.3 mmol/L (3.5-5.1); Total Protein 6.9 gm/dl (6.0-8.3)
[2024-10-28 14:47] LABS: Troponin I High Sensitivity 17.9 pg/ml (0-20)
--- NOTE | 2024-10-28 15:12 | XRay Report ---
XR chest 1V portable CLINICAL HISTORY: Chest pain, nonspecific COMPARISON STUDY: Chest CT February 08, 2024. Chest radiograph September 21, 2024. FINDINGS: There is no pneumothorax or pleural effusion. Cardiomegaly is unchanged. There is pulmonary vascular congestion. Minimal bibasilar opacities favor atelectasis. IMPRESSION: 1. Cardiomegaly with pulmonary vascular congestion. 2. Minimal bibasilar opacities which favor atelectasis. Although less likely, an infectious process c ould appear similar. Radiographic follow-up is recommended. ACT 112: Negative or not required by law. Electronically signed by: Yobani Miller M.D. 10/28/2024 3:11 PM
--- NOTE | 2024-10-28 15:28 | Electrocardiogram Report ---
Test Reason : Blood Pressure : */* mmHG Vent. Rate : 156 BPM Atrial Rate : * BPM P-R Int : * ms QRS Dur : 86 ms QT Int : 292 ms P-R-T Axes : * 12 60 degrees QTcB Int : 470 ms Atrial fibrillation with rapid ventricular response Low voltage QRS Abnormal ECG When compared with ECG of 03-Aug-2023 11:40, Atrial fibrillation has replaced Sinus rhythm Vent. rate has increased by 71 bpm QRS axis Shifted right Confirmed by Jonny Martinez ([id number]) on 10/28/2024 3:28:09 PM Referred By: Confirmed By: Jonny Martinez
--- NOTE | 2024-10-28 16:39 | History & Physical Report ---
Date of Service October 28, 2024 Assessment & Plan (1) Atrial fibrillation with RVR: Plan: Attending: Dr. Wang 73-year-old male presents to the emergency department 10/28/2024 with shortness of breath. He has a history of upper respiratory infection that has been treated since 09/27/2024. Due to his shortness of breath, patient has been using his albuterol inhaler at least once every hour. Patient has also been using nebulizer at least twice a day. Troponin is normal. EKG shows atrial fibrillation with rapid ventricular rate. No chest pain or tightness. No sputum production. No other evidence of acute illness. Due to the new onset atrial fibrillation, will start the patient on heparin drip with bolus Continue with diltiazem drip with titration protocol Will add metoprolol 25 mg p.o. twice daily with first dose now Last echocardiogram was 04/12/2020 with an EF of 55 to 60% and grade 1 diastolic dysfunction. Echocardiogram with bubble study Admit to PCU / telemetry Will hold off on cardiology consultation at this time pending echocardiogram Anticipate that patient will require 2 overnight stays to titrate medications. Hopefully we can discharge the patient on a DOAC and follow-up with cardiology as an outpatient (2) COPD with emphysema: Plan: Follows with Dr. Jacobsen from the pulmonary clinic Due to shortness of breath, patient has been overusing his albuterol inhaler. He was educated on the fact this is a beta antagonist and could be exacerbating his cardiac arrhythmia For his wheezes and shortness of breath, will not use albuterol nebulizer solution but will use Xopenex (leave albuterol) Patient currently saturating at 97% on room air Titrate supplemental oxygen between 88 and 92% due to patient's severe COPD (3) Pulmonary hypertension: Plan: Combination of type II and type III Last echocardiogram was 04/12/2020 with an EF of 55 to 60% and grade 1 diastolic dysfunction. RVSP at that time was 48 No recent echocardiogram Patient is currently not on supplemental oxygen and is currently not being treated with diuretics Will check echocardiogram secondary to new onset A-fib (4) Pulmonary nodules: Plan: Patient with a left upper lobe 3 mm nodule Prior smoker with [id number] history. Quit smoking in [address] Jacobsen in the pulmonary clinic It has been 15 years since he quit smoking send no further surveillance CT scanning is needed (5) GERD (gastroesophageal reflux disease): Plan: No acute complaints at this time Continue omeprazole twice daily (6) Esophageal varices: Plan: History of esophageal varices with bleeding greater than 15 years ago. Patient has a history of alcohol abuse but has not had anything to drink for at least 20 years Continue with omeprazole No further action needed at this time (7) Former smoker: Plan: [id number]-[id number] smoking history. Quit smoking at age 53 3 mm left upper lobe nodule which has been stable. No further workup needed as patient has not smoked for greater than 15 years (8) Psoriasis: Plan: Continue topical treatment as needed Plan Admit patient to telemetry unit Cardizem drip with titration protocol Start metoprolol 25 mg p.o. twice daily Heparin drip with bolus for anticoagulation on admission Check echocardiogram Further treatment as above Anticipate patient will be here for at least 2 days for titration medication DVT prophylaxis: Heparin drip History of Present Illness Chief Complaint: New onset atrial fibrillation with RVR Shortness of breath, no chest pain Primary Care Provider: John Beckwith MD Attending: Dr. Wang 73-year-old male with past medical history of CVA, severe COPD, pulmonary hypertension, history of esophageal varices from ethanol use 20 years ago, history of tobacco abuse and ethanol use (quit smoking and drinking at age 53, pulmonary nodule followed by Dr. Jacobsen, left knee replacement, chronic bronchitis. Patient presented the emergency room with shortness of breath which started 09/27/2024. He was seen in the urgent care center at that time and started on doxycycline and a steroid taper with prednisone. Patient continued to have problems and approximately 10 days ago saw his primary care doctor who put him on another dose of antibiotics with another steroid taper. He has completed this taper. Patient has ongoing shortness of breath and has been using his nebulizer twice daily and as needed. He has also been using his albuterol inhaler at least hourly. His shortness of breath worsened today and he presented the emergency department for evaluation was found to be in new onset atrial fibrillation with rapid ventricular rate. He was started on Cardizem drip and currently has a rate of 92 bpm but remains in atrial fibrillation. Patient reports that he has had some episodes where he has had fluttering in his chest but no chest pain or tightness. No prior history of atrial fibrillation or cardiac disease. Patient denies any fever. He does have an ongoing cough with no production. He has no hemoptysis. Appetite has been decreased Patient has no other acute complaints at this time. Patient's Jennifer is with him and endorses history. Allergies Allergy/AdvReac Type Severity Reaction Status Date / Time latex Allergy Unknown Rash Verified 09/20/24 12:24 [id number] Reductase AdvReac Intermediate Muscle Pain Verified 09/20/24 12:24 Inhibitor adhesive AdvReac Mild RASH Verified 09/20/24 12:24 Home Medications Medication Instructions Recorded Confirmed Type ascorbic acid (vitamin C) 1,000 mg 1 gm PO BID 06/24/19 10/28/24 History tablet melatonin 1 mg tablet 1 mg PO HS PRN Sleep 06/24/19 10/28/24 History inhalational spacing device #1 ea 06/28/19 10/28/24 Rx (Aerochamber MV spacer) hydrocodone 5 mg-acetaminophen 325 1 tab PO UD PRN ARTHRITIC PAIN 03/19/22 10/28/24 History mg tablet levocetirizine 5 mg tablet 10 mg PO QPM PRN allergy symptoms 02/09/23 10/28/24 History albuterol sulfate 90 mcg/actuation 2 puff inhalation Q6H PRN COPD 02/11/23 10/28/24 Rx aerosol inhaler #8.5 grams tiotropium bromide 2.5 2 puff inhalation DAILY #4 grams 03/07/24 10/28/24 Rx mcg/actuation mist for inhalation (Spiriva Respimat) budesonide 0.25 mg/2 mL suspension 0.25 mg (2 mL) inhalation BID #60 06/09/24 10/28/24 Rx for nebulization mL formoterol fumarate 20 mcg/2 mL 2 ml inhalation BID #120 mL 06/09/24 10/28/24 Rx solution for nebulization (Perforomist) nebulizers (Aeroneb Go Nebulizer) #1 ea 06/09/24 10/28/24 Rx elderberry fruit 50 mg/5 mL oral 0 mg PO UD 10/28/24 10/28/24 History syrup omeprazole 40 mg capsule,delayed 40 mg PO DAILY 10/28/24 10/28/24 History release zinc gluconate 50 mg tablet 50 mg PO QAM 10/28/24 10/28/24 History Past Med/Surg History Problem List Leukocytosis (Acute) Atrial fibrillation with RVR (Acute) Cerebrovascular disease Tremor Visual hallucinations Esophageal varices with bleeding Encounter for pre-operative examination Encounter for pre-operative examination Former tobacco use Obstructive pattern present on pulmonary function testing Cough COPD with emphysema Chronic bronchitis Pulmonary nodule Exertional shortness of breath Seasonal allergies History of left knee surgery Status post left knee replacement Pulmonary hypertension History of left knee surgery Medical History [place] (hard of hearing) Knee osteoarthritis Encounter for pre-operative examination History of alcoholism Chronic bronchitis Former smoker Osteoarthritis Esophageal varices Esophageal varices with hemorrhage History of hepatitis A Cirrhosis GERD (gastroesophageal reflux disease) Tinnitus Umbilical hernia COPD (chronic obstructive pulmonary disease) Pulmonary nodules Psoriasis Surgical History History of total left knee replacement History of hand surgery History of wisdom tooth extraction History of cataract surgery History of ankle surgery History of pelvic surgery History of esophagogastroduodenoscopy (EGD) History of colonoscopy Family History Other No family history of adverse response to anesthesia Social History Smoking Status: Never smoker Tobacco Type: Cigarettes Age Started Using Tobacco: 11; Age Quit Using Tobacco: 53; packs per day: 1; Smoking End Date: 1999; Second Hand Exposure: No; Do You Dip or Chew Tobacco: No; Hx Alcohol Use: No Hx Substance Use: Yes Last Used Substance Other:: 3 years ago Substance Use Type Other:: history of heroin use Preferred Language: [place] Communication Ability: Effective Visual Impairment: No Limitations 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 Pleasant. EYES: No icterus, gaze conjugate. Pupils equal round and reactive to light NOSE: No evidence of epistaxis. MOUTH: No lesions or candidiasis. Tongue is midline. No facial droop. NECK: Supple. No appreciation of carotid bruits LUNGS: Faint bilateral bronchospasm the upper kelley of the posterior lungs. No appreciation of bronchospasm with anterior examination. Breath sounds present throughout all lung kelley. No rhonchi. HEART: Irregular, irregular,. Telemetry currently with atrial fibrillation. Rate is better controlled and is currently 92 bpm ABDOMEN: Soft, NT, ND, BS Present. No high-pitched tinkling. Patient does have an umbilical hernia which is soft and reducible. EXTREMITIES: Bilateral peripheral edema in the left lower extremity. +1 peripheral edema in the right lower extremity. No calf tenderness. No Homans' sign. NEURO: A&OX3. Pupils equal round and reactive to light. Patient with no focal deficits. No slurred speech. No pronator drift. No facial droop. Strength is equal and appropriate upper extremities. Moves all extremities to command. Results & Data Results & Data Vital Signs (Past 12 Hours) Vital Signs Temp Pulse Pulse Resp BP BP Pulse Ox 10/28/24 15:45 97 10/28/24 14:51 99 H 10/28/24 14:50 126/83 10/28/24 14:50 126/83 10/28/24 14:45 122/86 10/28/24 14:39 89 28 H 95 10/28/24 14:35 129/79 10/28/24 14:28 117 H 22 122/86 94 10/28/24 14:27 122/86 10/28/24 14:11 36.9 C 127 H 31 H 133/87 96 10/28/24 14:11 97 10/28/24 13:49 37 C 163 H 18 147/109 H 94 O2 Del Method 10/28/24 15:45 Room Air 10/28/24 14:51 10/28/24 14:50 10/28/24 14:50 10/28/24 14:45 10/28/24 14:39 10/28/24 14:35 10/28/24 14:28 Room Air 10/28/24 14:27 10/28/24 14:11 Room Air 10/28/24 14:11 Room Air 10/28/24 13:49 Room Air Laboratory Results 10/28/24 14:04 10/28/24 14:04 Diagnostic Findings Chest X-Ray 10/28/24 14:08 XR chest 1V portable CLINICAL HISTORY: Chest pain, nonspecific COMPARISON STUDY: Chest CT February 08, 2024. Chest radiograph September 21, 2024. FINDINGS: There is no pneumothorax or pleural effusion. Cardiomegaly is unchanged. There is pulmonary vascular congestion. Minimal bibasilar opacities favor atelectasis. IMPRESSION: 1. Cardiomegaly with pulmonary vascular congestion. 2. Minimal bibasilar opacities which favor atelectasis. Although less likely, an infectious process could appear similar. Radiographic follow-up is recommended. ACT 112: Negative or not required by law. Electronically signed by: Yobani Miller M.D. 10/28/2024 3:11 PM Medications Administered Cardizem drip Heparin drip with bolus ordered Code Status & VTE Plan Code Status DNR/DNI per discussion with patient. is present and supportive VTE Prophylaxis Plan VTE Prophylaxis will be ordered: Yes Supervising Physician Co-Signing Physician Notes Attending Attestation & Admit Note: Pt seen/examined, chart reviewed, admit care plan d/w PA Scottie Cervantes. I agree w/ the zamudio components of his documentation. 73yo male with known h/o COPD, cirrhosis, pulm HTN, prior alcohol & tobacco dependence. Presented with ongoing pulmonary symptoms for several weeks. Has had severe cough, dyspnea, MARQUES, worsening LE edema (acute on chronic). He has been treated for pulmonary infection/COPD flare with several rounds of antibiotics & steroids. Despite such has not improved. During my visit he was coughing incessantly; the cough was severely bronchial sounding. PMH/PSH/allergies/meds/sochx/famhx - reviewed vitals stable, O2 sats stable gen - obese, coughing incessantly, awake, alert neck - suspected JVD mouth - MMM heart - irregularly irregular, s1 s2, no obvious murmur lungs - diffuse wheezing all lung segments, crackles b/l bases, mild tachypnea, coughing abd - protuberant, ?ascites, BS+, NT ext - 1-2+ edema b/l, pulses 2+ b/l labs reviewed imaging reviewed EKG - a.fib with RVR A/P: 1. COPD exacerbation 2. ?Pulmonary edema/decompensated CHF 3. new onset a.fib with RVR 4. h/o cirrhosis agree with IV diltiazem infusion + metoprolol for a.fib rate control agree with heparin infusion for anticoagulation with ultimate transition to PO anticoagulant although he has prior h/o esophageal varices, none were seen on 2021 EGD lasix 20mg IV x 1 for #2 echo ordered/pending resp [employer] consider systemic steroids for #1 cont bronchodilators labs am Tito Wang MD PG Care Time/CCT Total # of Minutes Spent Total Time Spent with Patient: Total time spent is greater than 50% in coordination of care (as documented) at patient's floor/unit and/or counseling patient: 60 minutes Coding Level of Care Code 97349 INT INP/OBS CARE 2/55MIN Diagnoses Atrial fibrillation with RVR I48.91 COPD with emphysema J43.9 Pulmonary hypertension I27.20 Pulmonary nodules R91.8 GERD (gastroesophageal reflux disease) K21.9 Esophageal varices I85.00 Former smoker Z87.891 Psoriasis L40.9 Time Spent (min) 60
--- OUTSIDE RECORDS SUMMARY | 2024-10-28 20:00 | External Medical Summary | Continuity of Care Document ---
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 Making, preparing to see the patient (eg, review of tests), obtaining and/or reviewing separatelyobtained history, performing a medically appropriate examination and/or evaluation, counseling and educating the patient/family/caregiver,ordering medications, tests, or procedures,referring and communicating with other health nonfarm animal caretaker, documenting clinical information in the electronic or other health record, independently interpreting results (not separately reported) and communicating results to the patient/ family/caregiver, care coordination Electronic Signature on File Electronically Reviewed/Signed by: Valeria Dubon DO Author Signature Dt/Tm:10/10/2024 03:25 PM Division of Sports Medicine [facility] Patient Care team information Care Team Personnel Name: MD Chelsea, Vivienne Yost Position: Physician - Derm Member Role: Lifetime Relationship Address: [address] [facility] [address] [place] [address] Name: MD Beckwith Christopher Position: Physician - Family Med Member Role: Primary Care Provider Address: [address] [facility] [address] [place] [address] Care Team Related Persons Name: BRITTNEY DURAN
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
[2024-10-28] MEDS ORDERED: LEVALBUTEROL 1.25 MG/3 ML NEB NEB PRN (20:33)
[2024-10-28] MEDS ORDERED: NON-FORMULARY MEDICATION (Inhalational Spacing Device [Aerochamber Mv] spacer) SCH (20:33)
[2024-10-28] MEDS: guaiFENesin 600 MG TABCR PO SCH (21:04)
[2024-10-28] MEDS: HEPARIN SODIUM/DEXTROSE 25,000 UNITS/500 ML BAG IV SCH (21:06)
[2024-10-28] MEDS: BENZONATATE 100 MG CAPSULE PO SCH (21:08)
[2024-10-28] MEDS: PANTOprazole 40 MG TAB PO SCH (21:08)
[2024-10-28] MEDS: METOPROLOL TARTRATE 25 MG TAB PO SCH (21:08)
[2024-10-28] MEDS: FUROSEMIDE INJ 20 MG/2 ML VIAL IV STA (21:09)
[2024-10-28] MEDS: ALBUTEROL HFA 8 GM INHALER INH PRN (21:09)
[2024-10-28] MEDS: HEPARIN SOD (PORCINE) 1000 UNIT/ML IV ONE (21:09)
[2024-10-28] MEDS: Heparin IV Adult Wt-Based Low-Dose w/ INITIAL Bolus Protocol IV STA (21:17)
[2024-10-28] MEDS: FORMOTEROL 20 MCG/2 ML VIAL INH SCH (22:17)
[2024-10-28] MEDS: BUDESONIDE 0.25 MG/2 ML VIAL (PULMICORT) INH SCH (22:26)
[2024-10-28 22:30] LABS: Adenovirus PCR Not Detected (NotDetected); Bordetella parapertussis PCR Not Detected (NotDetected); Bordetella pertussis PCR Not Detected (NotDetected); Chlamydia pneumoniae PCR Not Detected (NotDetected); Coronavirus 229E PCR Not Detected (NotDetected); Coronavirus CoV-2 (COVID19)PCR Not Detected (NotDetected); Coronavirus HKU1 PCR Not Detected (NotDetected); Coronavirus NL63 PCR Not Detected (NotDetected); Coronavirus OC43PCR Not Detected (NotDetected); Human Metapneumovirus PCR Not Detected (NotDetected); Influenza A PCR Not Detected (NotDetected); Influenza B PCR Not Detected (NotDetected); Mycoplasma pneumoniae PCR Not Detected (NotDetected); Parainfluenza Virus 1 PCR Not Detected (NotDetected); Parainfluenza Virus 2 PCR Not Detected (NotDetected); Parainfluenza Virus 3 PCR Not Detected (NotDetected); Parainfluenza Virus 4 PCR Not Detected (NotDetected); Respiratory Syncytial VirusPCR Not Detected (NotDetected); Rhinovirus/Enterovirus PCR Not Detected (NotDetected)
--- NOTE | 2024-10-29 01:08 | Ultrasound Report ---
EXAM: US venous doppler LE BI CLINICAL HISTORY: B/L le edema, RT greater, sedentary No definite RLE or LLE DVT detected TECHNIQUE: Ultrasound examination of bilateral lower extremity veins was performed in real time and duplex. One or more of the following were performed- spectral analysis, resistive index, waveform analysis, and pulsed Doppler. COMPARISON: None. FINDINGS: Normal phasic, non-pulsatile and spontaneous flow is noted in bilateral common femoral, superficial femoral, popliteal and posterior/anterior tibial and peroneal veins. Visualized veins of both lower extremities demonstrate normal compressibility. No sonographic evidence of acute deep vein thrombosis (DVT) is detected in the visualized veins of both lower extremities. Compression and Augmentation: All evaluated veins compress fully with applied transducer pressure. Augmentation of venous flow is noted with distal compression. Additional Findings: No evidence of intraluminal thrombus. Mild subcutaneous soft tissue edema identified in both legs IMPRESSION: 1. No sonographic evidence of acute DVT detected in bilateral common femoral, superficial femoral, popliteal, and posterior/anterior tibial and peroneal veins, at the time of examination. 2. Mild subcutaneous soft tissue edema identified in both legs. Disclaimer: DVT could be missed early in the disease when clot burden is minimal. For patients with moderate and high pretest probability of DVT and negative ultrasound, the [employer] clinical guidelines recommend testing with a D-dimer assay or repeat ultrasound in 5-7 days. If symptoms worsen, the Society of radiologists in ultrasound recommends repeating ultrasound even earlier. Electronically signed by Adi Floyd 10-29-2024 01:08 AM
[2024-10-29 03:27] LABS: Basophils # (auto) 0.04 K/uL (0.00-0.20); Basophils % (auto) 0.3 %; Eosinophils # (auto) 0.19 K/uL (0.00-0.50); Eosinophils % (auto) 1.6 %; Hematocrit (blood only) 39.2 % (42.0-52.0); Hemoglobin 12.5 g/dl (14.0-18.0); Immature Granulocytes # (auto) 0.03 K/uL (0.01-0.20); Immature Granulocytes % (auto) 0.3 %; Lymphocytes % (auto) 12.9 %; Mean Corpuscular Hemoglobin 28.8 pg (25.0-34.0); Mean Corpuscular Hgb Conc 31.9 g/dL (32.0-36.0); Mean Corpuscular Volume 90.3 fL (80.0-100.0); Mean Platelet Volume 11.1 fL (9.4-12.4); Monocytes % (auto) 9.5 %; Neutrophils # (auto) 8.73 K/uL (1.40-6.50); Neutrophils % (auto) 75.4 %; Platelet Count 233 K/uL (130-400); RDW Coefficient of Variation 15.7 % (11.5-14.5); RDW Standard Deviation 51.8 fL (36.4-46.3); Red Blood Count 4.34 M/uL (4.70-6.10); White Blood Count 11.59 K/ul (4.8-10.8)
[2024-10-29 03:45] LABS: BUN Creatinine Ratio 28.8 (10-20); Calcium 8.4 mg/dl (8.6-10.3); Creatinine Clr Calc Pharmacy 92.8 ml/min; Magnesium 2.2 mg/dl (1.7-2.4); Potassium 3.8 mmol/L (3.5-5.1)
[2024-10-29 04:00] LABS: Thyroid Stimulating Hormone 2.768 uIu/ml (0.300-4.500)
[2024-10-29 04:02] LABS: ANTI-Xa, UFH(UnfractionatedHep 0.21 IU/ml (0.3-0.7)
[2024-10-29] MEDS: FUROSEMIDE INJ 20 MG/2 ML VIAL IV ONE ×2 (08:31→16:27)
[2024-10-29] MEDS: POTASSIUM CHLORIDE CRTAB 20 MEQ TABCR PO SCH (08:35)
[2024-10-29] MEDS: MULTIVITAMIN TAB PO SCH (08:38)
[2024-10-29] MEDS: UMECLIDINIUM BROMIDE 62.5MCG/BLISTER 7 PUFFS/INHALER INH SCH (08:39)
[2024-10-29 11:10] LABS: ANTI-Xa, UFH(UnfractionatedHep 0.22 IU/ml (0.3-0.7)
--- NOTE | 2024-10-29 12:40 | Hospitalist Progress Note ---
Date of Service October 29, 2024 Assessment & Plan (1) Acute hypoxic respiratory failure: Plan: 2nd to decompensated acute systolic CHF 2nd to COPD with exacerbation - but probably playing lesser of a role documented RRs >25 upon ER presentation yesterday during my admission exam he was tachypneic with severe cough & obvious dyspnea all pulmonary symptoms improved overnight s/p lasix yesterday and again this am (2) Acute systolic CHF (congestive heart failure): Plan: EF 40-45% on echo this am prior echo several years ago with EF 55-60% cause of acute CHF -- uncontrolled a.fib? underlying, undiagnosed CAD? other factors? prior h/o heavy etoh use but none in many years thus alcoholic cardiomyopathy unlikely cont diuresis - gave lasix last pm, another dose this am, and will give a 3rd dose at dinner-time tonight cont metoprolol - ultimately convert to succinate will need low-dose Entresto +/- aldactone (latter will be good as well for cirrhosis) control the a.fib will ask cardiology to see in consult - does patient need left heart cath to r/o underlying CAD? labs in am (3) Family history of coronary artery disease: Plan: father with AZ which led to his passing brother in his 40s in his sleep patient with multiple CAD risk factors consider ischemic eval while here will add low-dose aspirin (4) Atrial fibrillation with RVR: Plan: rates improved s/p institution of metoprolol last evening he was on dilt drip until last pm at which point it was weaned off relatively contraindicated in light of depressed EF for improved rate control increase meto tartrate from 25mg BID to 50mg BID if additional rate control is needed titrate the beta allison further and/or add digoxin cont heparin drip likely convert to Eliquis or similar sometime this admission will ask cardiology to see in consult while here (5) COPD with emphysema: Plan: [place] [facility] Cont formoterol BID Cont budesonide BID Cont LAMA daily I do not believe that his current pulmonary symptoms are from the COPD; rather, suspect the CHF is driving the current issues lndj-aze-zzgi treat COPD as above (6) Pulmonary hypertension: Plan: Combination of type II and type III 2nd to COPD, etc (7) Pulmonary nodules: Plan: Patient with a left upper lobe 3 mm nodule Prior smoker with [id number]-ekbh history. Quit smoking in [address] Jacobsen in the pulmonary clinic f/u with Dr Jacobsen for this (8) GERD (gastroesophageal reflux disease): Plan: PPI twice daily (9) Esophageal varices: Plan: Remote history of esophageal varices with bleeding greater than 15 years ago Patient has a history of alcohol abuse but no etoh in 20 years Cont PPI twice daily Last EGD - 02/2022 by [facility] - NO varices at that time (10) Former smoker: Plan: 46-zida-wylu smoking history. Quit smoking at age 53 3 mm left upper lobe nodule which has been stable (11) Psoriasis: Plan: Continue topical treatment as needed (12) Cirrhosis: Plan: 2nd etoh see discussion above Re: prior esophageal varices I cannot rule out that some of his volume overload is from cirrhosis cont diuretics (13) Chronic narcotic use: Plan: uses norco about twice daily on chronic basis will resume such the amount of tylenol used is acceptable even despite his cirrhosis history Plan DVT proph - heparin infusion updated pt's by phone this evening, 10/29/24 Admission and Anticipated Discharge Date Admission Date: October 28, 2024 Subjective tele overnight -- ongoing a.fib, rates <100 dilt drip was shut off prior to 7am shift change and remained off the rest of the day rates remained ok all day until late afternoon when his rates brian to >100 he reports feeling less dyspneic there is less cough he feels better than at admission appetite is robust he reports his father had acute AZ, and a brother in his sleep in his 40s patient himself has never been dx with CAD he has never had heart cath he continues with some intermittent chest tightness he had such later in the day when his HR was >100 Review of Systems 2 Review of Systems: gen - no fevers cv - orthopnea improved; edema of legs improved pulm - cough/congestion/dyspnea GI - no abd pain or N/V Physical Exam 2 Physical Exam: gen - looks much better than yesterday, NAD neck - JVD present mouth - MMM heart - irregularly irregular, s1 s2, no murmur lungs - b/l basilar rales, wheezing improved; no increased work of breathing abd - soft NT ND BS+; body wall edema? ext - 1+ edema b/l legs, pulses 2+ b/l psych - a/o x 3 Results & Data Results & Data Vital Signs (Past 12 Hours) Vital Signs Temp Pulse Resp BP Pulse Ox O2 Del Method O2 Flow Rate 10/29/24 11:19 36.5 C 87 18 132/97 92 Room Air 10/29/24 07:37 92 H 18 98 Nasal Cannula 2 10/29/24 07:25 Nasal Cannula 2 10/29/24 07:15 36.8 C 104 H 22 138/93 97 Nasal Cannula 2 10/29/24 04:30 36.5 C 68 22 128/74 98 Nasal Cannula 10/29/24 01:20 54 L 17 97 Nasal Cannula 2 10/29/24 01:13 Nasal Cannula 2 Laboratory Results Laboratory Results - last 48 hr 10/28/24 10/28/24 10/29/24 14:04 Unknown 03:06 WBC 13.30 H 11.59 H RBC 4.77 4.34 L Hgb 14.0 12.5 L Hct 43.5 39.2 L MCV 91.2 90.3 MCH 29.4 28.8 MCHC 32.2 31.9 L RDW Std Deviation 52.7 H 51.8 H RDW Coeff of Bandar 15.8 H 15.7 H Plt Count 260 233 MPV 10.7 11.1 Immature Gran % (Auto) 0.5 0.3 Neut % (Auto) 81.1 75.4 Lymph % (Auto) 9.0 12.9 [place] % (Auto) 8.3 9.5 Eos % (Auto) 0.8 1.6 Baso % (Auto) 0.3 0.3 Neut # (Auto) 10.79 H 8.73 H Lymph # (Auto) 1.20 1.50 [place] # (Auto) 1.10 H 1.10 H Eos # (Auto) 0.11 0.19 Baso # (Auto) 0.04 0.04 Immature Gran # (Auto) 0.06 0.03 Heparin Anti-Xa, Unfract 0.21 L Sodium 142 140 Potassium 4.3 3.8 Chloride 105 106 Carbon Dioxide 31 27 Anion Gap 6 7 BUN 27 H 23 Creatinine 0.82 0.80 Est Cr Clr Drug Dosing 90.6 92.8 eGFR 91.61 92.29 BUN/Creatinine Ratio 32.9 H 28.8 H Glucose 95 106 H Calcium 9.4 8.4 L Magnesium 2.2 Total Bilirubin 0.6 AST 31 ALT 53 H Alkaline Phosphatase 70 Troponin I High Sens 17.9 Total Protein 6.9 Albumin 4.3 Globulin 2.6 Albumin/Globulin Ratio 1.7 Lipase 19 TSH 2.768 Adenovirus (PCR) Not Detected B. pertussis DNA (PCR) Not Detected B.parapertussis DNA PCR Not Detected C. pneumoniae DNA (PCR) Not Detected Coronavirus OC43 (PCR) Not Detected Coronavirus HKU1 (PCR) Not Detected Coronavirus 229E (PCR) Not Detected SARS-CoV-2 (PCR) Not Detected Coronavirus NL63 (PCR) Not Detected Human Metapneumovir PCR Not Detected Influenza Type A (PCR) Not Detected Influenza Type B (PCR) Not Detected M. pneumoniae (PCR) Not Detected Parainfluenza 1 (PCR) Not Detected Parainfluenza 2 (PCR) Not Detected Parainfluenza 3 (PCR) Not Detected Parainfluenza 4 (PCR) Not Detected RSV (PCR) Not Detected Entero/Rhino (PCR) Not Detected 10/29/24 10/29/24 10:15 15:27 WBC RBC Hgb Hct MCV MCH MCHC RDW Std Deviation RDW Coeff of [place] Plt Count MPV Immature Gran % (Auto) Neut % (Auto) Lymph % (Auto) [place] % (Auto) Eos % (Auto) Baso % (Auto) Neut # (Auto) Lymph # (Auto) [place] # (Auto) Eos # (Auto) Baso # (Auto) Immature Gran # (Auto) Heparin Anti-Xa, Unfract 0.22 L 0.25 L Sodium Potassium Chloride Carbon Dioxide Anion Gap BUN Creatinine Est Cr Clr Drug Dosing eGFR BUN/Creatinine Ratio Glucose Calcium Magnesium Total Bilirubin AST ALT Alkaline Phosphatase Troponin I High Sens Total Protein Albumin Globulin Albumin/Globulin Ratio Lipase TSH Adenovirus (PCR) B. pertussis DNA (PCR) B.parapertussis DNA PCR C. pneumoniae DNA (PCR) Coronavirus OC43 (PCR) Coronavirus HKU1 (PCR) Coronavirus 229E (PCR) SARS-CoV-2 (PCR) Coronavirus NL63 (PCR) Human Metapneumovir PCR Influenza Type A (PCR) Influenza Type B (PCR) M. pneumoniae (PCR) Parainfluenza 1 (PCR) Parainfluenza 2 (PCR) Parainfluenza 3 (PCR) Parainfluenza 4 (PCR) RSV (PCR) Entero/Rhino (PCR) Diagnostic Findings echo - PG Care Time/CCT Total # of Minutes Spent Total Time Spent with Patient: Total time spent is greater than 50% in coordination of care (as documented) at patient's floor/unit and/or counseling patient: Coding Level of Care Code 38283 SUB INP/OBS CARE 3/50MIN Diagnoses Acute hypoxic respiratory failure J96.01 Acute systolic CHF (congestive heart failure) I50.21 Family history of coronary artery disease Z82.49 Atrial fibrillation with RVR I48.91 COPD with emphysema J43.9 Pulmonary hypertension I27.20 Pulmonary nodules R91.8 GERD (gastroesophageal reflux disease) K21.9 Esophageal varices I85.00 Former smoker Z87.891 Psoriasis L40.9 Cirrhosis K74.60 Chronic narcotic use F11.90
--- NOTE | 2024-10-29 13:06 | XCELERA ---
[id number] \\[id number]\[email or web address]_[id number]_[id number]
[2024-10-29 16:05] LABS: ANTI-Xa, UFH(UnfractionatedHep 0.25 IU/ml (0.3-0.7)
[2024-10-29] MEDS: POTASSIUM CHLORIDE CRTAB 20 MEQ TABCR PO ONE (16:26)
[2024-10-29] MEDS: HYDROCODONE/ACETAMOPHEN 5/325MG TAB PO PRN (16:26)
[2024-10-29] MEDS: METOPROLOL TARTRATE 50 MG TAB PO SCH (18:23)
[2024-10-29] MEDS: ASPIRIN 81 MG ECTAB PO SCH (20:41)
[2024-10-29] MEDS: MELATONIN 3 MG TAB PO PRN (20:50)
[2024-10-29 23:36] LABS: ANTI-Xa, UFH(UnfractionatedHep 0.35 IU/ml (0.3-0.7)
[2024-10-30 06:39] LABS: ANTI-Xa, UFH(UnfractionatedHep 0.37 IU/ml (0.3-0.7)
[2024-10-30 06:42] LABS: BUN Creatinine Ratio 30.5 (10-20); Calcium 8.5 mg/dl (8.6-10.3); Creatinine Clr Calc Pharmacy 125.9 ml/min; Magnesium 2.1 mg/dl (1.7-2.4); Potassium 3.8 mmol/L (3.5-5.1)
[2024-10-30] MEDS: FUROSEMIDE 40 MG/4 ML VIAL IV ONE (08:45)
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
--- NOTE | 2024-10-30 13:13 | Hospitalist Progress Note ---
Date of Service October 30, 2024 Assessment & Plan (1) Acute hypoxic respiratory failure: Plan: 2nd to decompensated acute systolic CHF 2nd to COPD with exacerbation - but probably playing lesser of a role documented RRs >25 upon ER presentation during my admission exam he was tachypneic with severe cough & obvious dyspnea all pulmonary symptoms improved s/p lasix diuresis since admission cont diuresis adding prednisone for COPD (and right knee) (2) Acute systolic CHF (congestive heart failure): Plan: EF 40-45% on echo this admission prior echo several years ago with EF 55-60% cause of acute CHF -- uncontrolled a.fib? underlying, undiagnosed CAD? other factors? prior h/o heavy etoh use but none in many years thus alcoholic cardiomyopathy unlikely cont diuresis - 40mg lasix this am, 20mg this afternoon cont metoprolol - ultimately convert to succinate will need low-dose Entresto +/- aldactone (latter will be good as well for cirrhosis) control the a.fib appreciate cardiology consultation by Dr Dereje morrison in am (3) Family history of coronary artery disease: Plan: father with ID which led to his passing brother in his 40s in his sleep patient with multiple CAD risk factors consider ischemic eval while here will add low-dose aspirin (4) Atrial fibrillation with RVR: Plan: rates improved s/p institution of metoprolol at admission he was on dilt drip briefly then weaned off diltiazem relatively contraindicated in light of depressed EF for improved rate control increased meto tartrate from 25mg BID to 50mg BID if additional rate control is needed titrate the beta allison further and/or add digoxin cont heparin drip likely convert to Eliquis or similar sometime this admission appreciate cardiology consultation (5) COPD with emphysema: Plan: [place] Dr. Jacob[place] [facility] Cont formoterol BID Cont budesonide BID Cont LAMA daily Will add low-dose prednisone 30mg daily f Add robitussin-ac prn Increase tessalon to 200mg TID (6) Pulmonary hypertension: Plan: Combination of type II and type III 2nd to COPD, etc (7) Pulmonary nodules: Plan: Patient with a left upper lobe 3 mm nodule Prior smoker with 28-azmb-gbol history. Quit smoking in [address] Jacobsen in the pulmonary clinic f/u with Dr Kadri for this (8) GERD (gastroesophageal reflux disease): Plan: PPI twice daily (9) Esophageal varices: Plan: Remote history of esophageal varices with bleeding greater than 15 years ago Patient has a history of alcohol abuse but no etoh in 20 years Cont PPI twice daily Last EGD - 02/2022 by [facility] - NO varices at that time (10) Former smoker: Plan: [id number]-[id number] smoking history. Quit smoking at age 53 3 mm left upper lobe nodule which has been stable (11) Psoriasis: Plan: Continue topical treatment as needed (12) Cirrhosis: Plan: 2nd etoh see discussion above Re: prior esophageal varices I cannot rule out that some of his volume overload is from cirrhosis cont diuretics would benefit from being on aldactone in addition to lasix (13) Chronic narcotic use: Plan: uses norco about twice daily on chronic basis the amount of tylenol used is acceptable even despite his cirrhosis history (14) NSVT (nonsustained ventricular tachycardia): Plan: continue beta allison titrate as needed ischemic eval needed? defer to cardiology cont telemetry Keep mag/K wnl (15) Cardiomyopathy: Plan: see discussion above Plan DVT proph - heparin infusion updated pt's by phone 10/29/24 updated pt's & son 10/30 extensively at bedside right knee pain - mild gouty arthritis? prednisone for COPD should help re-eval tomorrow Admission and Anticipated Discharge Date Admission Date: October 28, 2024 Subjective tele - a.fib, rates mainly <100 still with severe cough, although he has less dyspnea right knee has been hurting him for 1-2 days hurts to weight bear , son at bedside questions answered no chest pain Review of Systems Review of Systems: gen - no fevers, eating well cv - ongoing orthopnea, still with edema but improving pulm - ongoing dyspnea especially w/ exertion GI - no N/V; +constipation Physical Exam Physical Exam: gen - bronchial cough, but no distress neck - ongoing JVD mouth - MMM heart - irregularly irregular, s1 s2, no murmur; rate <100 lungs - b/l basilar rales remain - slowly improving; wheezes b/l - mild; no increased work of breathing abd - soft NT ND BS+; body wall edema suspected ext - 1+ edema b/l legs, pulses 2+ b/l psych - a/o x 3 musculo - right knee effusion, mild; not hot/warm or red Results & Data Results & Data Vital Signs (Past 12 Hours) Vital Signs Temp Pulse Resp BP Pulse Ox O2 Del Method O2 Flow Rate 10/30/24 11:28 36.4 C L 88 20 121/82 94 Nasal Cannula 2 10/30/24 08:00 Room Air 0 10/30/24 07:44 80 18 96 Nasal Cannula 2 10/30/24 07:29 36.4 C L 94 H 20 145/98 H 97 Nasal Cannula 2 10/30/24 04:05 36.3 C L 92 H 22 144/91 H 97 Room Air Laboratory Results Laboratory Results - last 24 hr 10/29/24 10/29/24 10/29/24 15:27 20:35 22:27 Heparin Anti-Xa, Unfract 0.25 L 0.35 Troponin I High Sens 12.8 D 10/30/24 05:38 Heparin Anti-Xa, Unfract 0.37 Sodium 137 Potassium 3.8 Chloride 102 Carbon Dioxide 29 Anion Gap 6 BUN 18 Creatinine 0.59 L Est Cr Clr Drug Dosing 125.9 eGFR 101.18 BUN/Creatinine Ratio 30.5 H Glucose 99 Calcium 8.5 L Magnesium 2.1 PG Care Time/CCT Total # of Minutes Spent Total Time Spent with Patient: Total time spent is greater than 50% in coordination of care (as documented) at patient's floor/unit and/or counseling patient: Coding Level of Care Code 63359 SUB INP/OBS CARE 3/50MIN Diagnoses Acute hypoxic respiratory failure J96.01 Acute systolic CHF (congestive heart failure) I50.21 Family history of coronary artery disease Z82.49 Atrial fibrillation with RVR I48.91 COPD with emphysema J43.9 Pulmonary hypertension I27.20 Pulmonary nodules R91.8 GERD (gastroesophageal reflux disease) K21.9 Esophageal varices I85.00 Former smoker Z87.891 Psoriasis L40.9 Cirrhosis K74.60 Chronic narcotic use F11.90 NSVT (nonsustained ventricular tachycardia) I47.29 Cardiomyopathy I42.9
[2024-10-30] MEDS: POTASSIUM CHLORIDE CRTAB 20 MEQ TABCR PO ONE (14:12)
[2024-10-30] MEDS: predniSONE 10 MG TABLET PO SCH (14:12)
[2024-10-30] MEDS: BENZONATATE 100 MG CAPSULE PO SCH (14:15)
[2024-10-30] MEDS: guaiFENesin/CODEINE 100MG/10MG 5ML UDC PO PRN (14:16)
[2024-10-30] MEDS: POLYETHYLENE (MIRALAX) 17 GM PACK PO SCH (17:03)
[2024-10-30] MEDS: bisacodyL 5 MG TABEC PO ONE (17:03)
[2024-10-30] MEDS: FUROSEMIDE INJ 20 MG/2 ML VIAL IV ONE (17:25)
[2024-10-31 07:17] LABS: BUN Creatinine Ratio 29.5 (10-20); Calcium 8.9 mg/dl (8.6-10.3); Creatinine Clr Calc Pharmacy 120.2 ml/min; Potassium 4.1 mmol/L (3.5-5.1)
[2024-10-31 07:23] LABS: ANTI-Xa, UFH(UnfractionatedHep 0.36 IU/ml (0.3-0.7)
[2024-10-31] MEDS: FUROSEMIDE 40 MG/4 ML VIAL IV ONE (08:43)
[2024-10-31] MEDS: SPIRONOLACTONE 25 MG TAB PO SCH (08:43)
--- NOTE | 2024-10-31 09:05 | Electrocardiogram Report ---
Test Reason : Blood Pressure : */* mmHG Vent. Rate : 66 BPM Atrial Rate : 55 BPM P-R Int : * ms QRS Dur : 96 ms QT Int : 434 ms P-R-T Axes : * 30 60 degrees QTcB Int : 454 ms Atrial fibrillation with premature ventricular or aberrantly conducted complexes Abnormal ECG When compared with ECG of 28-Oct-2024 14:01, Vent. rate has decreased by 90 bpm Confirmed by Juma Reyez ([id number]) on 10/31/2024 9:05:23 AM Referred By: REFERRED SELF Confirmed By: Juma Reyez
--- NOTE | 2024-10-31 12:17 | Hospitalist Progress Note ---
Date of Service October 31, 2024 Assessment & Plan (1) Acute hypoxic respiratory failure: Plan: 2nd to decompensated acute systolic CHF 2nd to COPD with exacerbation - but probably playing lesser of a role RESOLVING of note -- patient had documented RRs >25 upon ER presentation during my admission exam he was tachypneic with severe cough & obvious dyspnea all pulmonary symptoms improved s/p lasix diuresis since admission cont diuresis cont prednisone for COPD (2) Acute systolic CHF (congestive heart failure): Plan: EF 40-45% on echo this admission prior echo several years ago with EF 55-60% acute decompensation improving nicely cause of acute CHF -- uncontrolled a.fib? underlying, undiagnosed CAD? other factors? prior h/o heavy etoh use but none in many years thus alcoholic cardiomyopathy unlikely cont IV diuresis - 40mg lasix this am, 20mg this afternoon cont metoprolol - convert to succinate tomorrow am -- would start with 100mg of meto succ; if BPs remain stable then increase to 150mg/day will need low-dose Entresto start aldactone 25mg daily - this will be good for his cirrhosis as well as CHF appreciate cardiology consultation by Dr Reyez labs in am (3) Family history of coronary artery disease: Plan: father with CT which led to his passing brother in his 40s in his sleep patient with multiple CAD risk factors consider ischemic eval while here (4) Atrial fibrillation with RVR: Plan: rates improved s/p institution of metoprolol at admission he was on dilt drip briefly then weaned off diltiazem relatively contraindicated in light of depressed EF for improved rate control increased meto tartrate from 25mg BID to 50mg BID resting HRs controlled; still high with activity if additional rate control is needed titrate the beta allison further and/or add digoxin stop heparin drip later today; convert to PO Eliquis 5mg BID this evening cost of Eliquis should be ~$20 convert meto tartate to meto succ tomorrow am; start with 100mg, and if BP can tolerate, increase it to 150mg per Dr Reyez's recommendations appreciate cardiology consultation (5) COPD with emphysema: Plan: [place] Jacob[place] [facility] [place] Cont formoterol BID Cont budesonide BID Cont LAMA daily Added low-dose prednisone 30mg daily starting 10/30 for probable exacerbation (some of the wheezing is likely from pulm edema, however) no wean on prednisone today Cont robitussin-ac prn Cont tessalon 200mg TID scheduled (6) Pulmonary hypertension: Plan: Combination of type II and type III 2nd to COPD, etc (7) Pulmonary nodules: Plan: Patient with a left upper lobe 3 mm nodule Prior smoker with 86-yewm-wsre history. Quit smoking in [address] Jacobsen in the pulmonary clinic f/u with Dr Jacobsen for this (8) GERD (gastroesophageal reflux disease): Plan: PPI twice daily (9) Esophageal varices: Plan: Remote history of esophageal varices with bleeding greater than 15 years ago Patient has a history of alcohol abuse but no etoh in 20 years Cont PPI twice daily Last EGD - 02/2022 by [facility] - NO varices at that time (10) Former smoker: Plan: 64-mupt-elfg smoking history. Quit smoking at age 53 3 mm left upper lobe nodule which has been stable (11) Psoriasis: Plan: Continue topical treatment as needed (12) Cirrhosis: Plan: 2nd etoh see discussion above Re: prior esophageal varices I cannot rule out that some of his volume overload is from cirrhosis cont lasix adding aldactone today 25mg to start (13) Chronic narcotic use: Plan: uses norco about twice daily on chronic basis the amount of tylenol used is acceptable even despite his cirrhosis history (14) NSVT (nonsustained ventricular tachycardia): Plan: 2 runs on 10/30/24 one run was 18 beats continue beta allison titrate such ischemic eval needed? defer to cardiology cont telemetry Keep mag/K wnl (15) Cardiomyopathy: Plan: see discussion above Plan DVT proph - changing to Eliquis 5mg BID tonight updated pt's by phone 10/29/24 updated pt's & son 10/30 extensively at bedside right knee pain - mild gouty arthritis vs OA vs other improved s/p prednisone for COPD I am pleased with his progress Admission and Anticipated Discharge Date Admission Date: October 28, 2024 Subjective tele - a.fib, most rates <100 with walking/activity he can still hit 150s/160s he feels MUCH better dyspnea improved but still with MARQUES no chest pain or tightness cough still present - can be harsh at times - but improved eating well - 100% of meals asks about when he can go home Review of Systems Review of Systems: cv - edema improved pulm - some sputum GI - no abd pain or n/v musculo - right knee pain improved overnight Physical Exam Physical Exam: gen - best he has looked since admission, coughing but that is improved, sitting at side of bed neck - no JVD sitting upright mouth - MMM heart - irregularly irregular, s1 s2, no murmur; rate <100 lungs - b/l basilar rales - but very mild today & significantly improved from all prior exams; no wheezes today; no increased work of breathing abd - soft NT ND BS+; body wall edema suspected ext - <1+ edema b/l legs, pulses 2+ b/l psych - a/o x 3 musculo - right knee effusion resolved today Results & Data Results & Data Vital Signs (Past 12 Hours) Vital Signs Temp Pulse Pulse Resp BP BP Pulse Ox 10/31/24 11:04 36.3 C L 91 H 19 106/76 94 10/31/24 08:44 10/31/24 07:31 106 H 18 96 10/31/24 07:23 37.0 C 66 19 114/73 92 10/31/24 07:18 86 10/31/24 02:49 36.5 C 83 18 139/60 94 O2 Del Method O2 Flow Rate 10/31/24 11:04 Nasal Cannula 2 10/31/24 08:44 Room Air 10/31/24 07:31 Nasal Cannula 2 10/31/24 07:23 Room Air 10/31/24 07:18 10/31/24 02:49 Nasal Cannula 1.0 Laboratory Results Laboratory Results - last 24 hr 10/31/24 06:18 Heparin Anti-Xa, Unfract 0.36 Sodium 139 Potassium 4.1 Chloride 102 Carbon Dioxide 30 Anion Gap 7 BUN 18 Creatinine 0.61 Est Cr Clr Drug Dosing 120.2 eGFR 100.17 BUN/Creatinine Ratio 29.5 H Glucose 103 H Calcium 8.9 PG Care Time/CCT Total # of Minutes Spent Total Time Spent with Patient: Total time spent is greater than 50% in coordination of care (as documented) at patient's floor/unit and/or counseling patient: Coding Level of Care Code 03112 SUB INP/OBS CARE 3/50MIN Diagnoses Acute hypoxic respiratory failure J96.01 Acute systolic CHF (congestive heart failure) I50.21 Family history of coronary artery disease Z82.49 Atrial fibrillation with RVR I48.91 COPD with emphysema J43.9 Pulmonary hypertension I27.20 Pulmonary nodules R91.8 GERD (gastroesophageal reflux disease) K21.9 Esophageal varices I85.00 Former smoker Z87.891 Psoriasis L40.9 Cirrhosis K74.60 Chronic narcotic use F11.90 NSVT (nonsustained ventricular tachycardia) I47.29 Cardiomyopathy I42.9
--- NOTE | 2024-10-31 14:46 | Cardiology Progress Note ---
Date of Service October 31, 2024 Assessment & Plan (1) Atrial fibrillation with RVR: (2) Exertional shortness of breath: (3) Cardiomyopathy: (4) NSVT (nonsustained ventricular tachycardia): Plan 1. Atrial fibrillation: He presents with atrial fibrillation with a rapid ventricular response, he was on no AV neal blocking medications on presentation. His rate was quickly controlled and he is now on metoprolol tartrate 50 mg twice a day. He is on heparin and will need oral anticoagulation. I would recommend starting metoprolol succinate tomorrow, perhaps at a higher dose of 150 mg, in part due to the NSVT as well as the cardiomyopathy. 2. Dyspnea on exertion: This is likely cardiac in nature but whether it is due to the atrial fibrillation alone, or a contribution of his cardiomyopathy cannot be determined. With his rate controlled we can see if the symptoms resolve. It is conceivably an anginal equivalent but with several other potential etiologies I do not think we need to look for that, as noted below. 3. Cardiomyopathy: This is likely due to atrial fibrillation with a rapid heart rate, although there is a suggestion of a septal abnormality but no evidence of acute myocardial injury. We could look for other primary causes of cardiomyopathy but in this setting I would recommend rate control, possibly rhythm control, with guideline directed treatment for left ventricular dysfunction and often there is rapid recovery of left ventricular function. If we do not see rapid resolution of the cardiomyopathy then we could proceed with evaluation for other causes of cardiomyopathy including ischemia. 4. NSVT: On telemetry he had 2 episodes of nonsustained ventricular tachycardia, one however was quite long at 18 beats at a rate of 160 to 180 bpm. He has had none over the past 24 hours. He also describes intermittent dizziness when he walks, which could be hypoxia but it sounds as though it is transient and could be an arrhythmia. This with a somewhat reduced left ventricular ejection fraction is worrisome. I do not know that we should do electrophysiologic studies at this point but I think it would be prudent to get a 30-day event monitor upon discharge. We could probably arrange that by having him stop in the office on the way home. In the meantime I would titrate his beta-blockade somewhat as that may help with the VT as well as his cardiomyopathy and heart rate in atrial fibrillation Admission and Anticipated Discharge Date Admission Date: October 28, 2024 Subjective He tells me that he is tired but has no other cardiovascular complaints. No shortness of breath or palpitations. Physical Exam Physical Exam: Constitutional: Alert, cooperative and in no distress. HEENT: Unremarkable Neck: No jugular venous distention, carotid pulses are irregular but otherwise normal and equal bilaterally without bruits. Pulmonary: Decreased breath sounds bilaterally with prolonged expiration, basilar crackles. Cardiac: Irregular rhythm with no murmur, gallop or rub. Abdomen: Soft, nontender with normal bowel sounds. Extremities: No edema. Neurologic: No focal findings. Skin: No rash, ecchymoses or petechiae. Results & Data Vital Signs (Past 12 Hours) Vital Signs Temp Pulse Pulse Resp BP BP Pulse Ox 10/31/24 14:10 75 10/31/24 11:04 36.3 C L 91 H 19 106/76 94 10/31/24 08:44 10/31/24 07:31 106 H 18 96 10/31/24 07:23 37.0 C 66 19 114/73 92 10/31/24 07:18 86 10/31/24 02:49 36.5 C 83 18 139/60 94 O2 Del Method O2 Flow Rate 10/31/24 14:10 10/31/24 11:04 Nasal Cannula 2 10/31/24 08:44 Room Air 10/31/24 07:31 Nasal Cannula 2 10/31/24 07:23 Room Air 10/31/24 07:18 10/31/24 02:49 Nasal Cannula 1.0 Diagnostic Findings Comprehensive Metabolic Panel 10/31/24 Range/Units 06:18 Sodium 139 (136-145) mmol/L Potassium 4.1 (3.5-5.1) mmol/L Chloride 102 (98-107) mmol/L Carbon Dioxide 30 (21-32) mmol/L BUN 18 (6-23) mg/dl Creatinine 0.61 (0.6-1.4) mg/dl Glucose 103 H (70-99(Fasting)) mg/dl Calcium 8.9 (8.6-10.3) mg/dl Intake and Output 10/30/24 10/31/24 10/31/24 22:59 06:59 14:59 Intake Total 1130.0 / 1130.0 Output Total 651 / 3276 950 / 3276 600 / 600 Balance -651 / -2359.7 -950 / -2359.7 530.0 / 530.0 Intake: IV 500.0 / 500.0 Heparin Sodium/Dextrose 25,000 500.0 / 500.0 units In 500 ml @ 1,300 UNITS/ HR 26 mls/hr IV .[id number] GINGER Rx #:[id number] Oral 630 / 630 Output: Urine 650 / 3275 950 / 3275 600 / 600 # Bowel Movements Other: Weight 103.873 kg Weight Measurement Method Built in [facility] Telemetry: Atrial fibrillation, heart rate 80 to 90 bpm on average. No significant high heart rates. No ventricular arrhythmias over the last 24 hours. PG Care Time/CCT Total # of Minutes Spent Total Time Spent with Patient: Total time spent is greater than 50% in coordination of care (as documented) at patient's floor/unit and/or counseling patient: Coding Level of Care Code None Diagnoses Atrial fibrillation with RVR I48.91 Exertional shortness of breath R06.02 Cardiomyopathy I42.9 NSVT (nonsustained ventricular tachycardia) I47.29
[2024-10-31] MEDS: FUROSEMIDE INJ 20 MG/2 ML VIAL IV ONE (16:32)
[2024-10-31] MEDS: APIXABAN 5 MG TABLET PO SCH (21:10)
[2024-11-01 06:41] LABS: Hematocrit (blood only) 41.4 % (42.0-52.0); Hemoglobin 13.3 g/dl (14.0-18.0); Mean Corpuscular Hemoglobin 29.2 pg (25.0-34.0); Mean Corpuscular Hgb Conc 32.1 g/dL (32.0-36.0); Mean Corpuscular Volume 90.8 fL (80.0-100.0); Mean Platelet Volume 11.2 fL (9.4-12.4); Platelet Count 231 K/uL (130-400); RDW Standard Deviation 50.1 fL (36.4-46.3); Red Blood Count 4.56 M/uL (4.70-6.10); White Blood Count 11.16 K/ul (4.8-10.8)
[2024-11-01 06:50] LABS: BUN Creatinine Ratio 29.2 (10-20); Calcium 9.4 mg/dl (8.6-10.3); Creatinine Clr Calc Pharmacy 81.3 ml/min
--- NOTE | 2024-11-01 07:52 | Hospitalist Progress Note ---
Date of Service November 01, 2024 Assessment & Plan (1) Acute hypoxic respiratory failure: Plan: 2nd to decompensated acute systolic CHF 2nd to COPD with exacerbation - but probably playing lesser of a role of note -- patient had documented RRs >25 upon ER presentation - during admission exam by Dr Wang, he was tachypneic with severe cough & obvious dyspnea all pulmonary symptoms improved s/p lasix diuresis since admission cont diuresis cont prednisone for COPD 11/01 RESOLVING/Improving Req 2L this morning for saturation, supplemental O2 to maintain sats/titrate as able Prednisone 30mg daily continued, pulmonary toilet. Budesonide/formoterol nebs continued Lasix 40mg IV this morning, urine clear and repeat 20mg IV dose for this evening as still appears overloaded, likely from afib/elevated HR Aldactone 25mg PO daily started 10/31 and continued Metoprolol succinate 100mg PO daily started for today -->plan to increase to 150mg QAM 11/02 given improvement but still needing better rate control. Bowel regimen: added colace BID (declined his miralax this morning) (2) Acute systolic CHF (congestive heart failure): Plan: EF 40-45% on echo this admission prior echo several years ago with EF 55-60% acute decompensation improving nicely cause of acute CHF -- uncontrolled a.fib? underlying, undiagnosed CAD? other factors? prior h/o heavy etoh use but none in many years thus alcoholic cardiomyopathy unlikely Lasix 40mg IV/20mg IV on 10/31 --> repeated 40mg IV QAM and additional 20mg IV this afternoon 11/01 Metoprolol converted to succinate for this morning 100mg --> BP stable and plans for INCREASE to 150mg PO QAM for 11/02 Started/continued aldactone 25mg daily - this will be good for his cirrhosis as well as CHF will need low-dose Entresto appreciate cardiology consultation by Dr Dereje morrison in am (3) Family history of coronary artery disease: Plan: father with [place] which led to his passing brother in his 40s in his sleep patient with multiple CAD risk factors consider ischemic eval while here -- cardiology consult appreciated (4) Atrial fibrillation with RVR: Plan: rates improved s/p institution of metoprolol at admission he was on dilt drip briefly then weaned off diltiazem relatively contraindicated in light of depressed EF for improved rate control increased meto tartrate from 25mg BID to 50mg BID --> resting HR controlled but high w/ activity Heparin gtt stopped, converted to ELIQUIS 5mg BID 10/31. Almeida check ~$20 -- rx at dc Converted to SUCCINATE this morning as above, INCREASED to 150mg daily for AM per Dr Reyez's recommendation. Keep mag/K replete, telemetry monitoring (5) COPD with emphysema: Plan: Follows with Dr. Jacobsen from the [facility] pulmonary clinic Cont formoterol BID, budesonide BID, LAMA daily Low dose prednisone 30mg daily added 10/30 for COPD exacerbation and added cough syrup AC prn, tessalon pearls Supplemental O2 to maintain sats, diuresis as above \\ (6) Pulmonary hypertension: Plan: Combination of type II and type III 2nd to COPD, etc Diuretics as outlined above, metoprolol for HR control. ?underlying LANNY (7) Pulmonary nodules: Plan: Patient with a left upper lobe 3 mm nodule Prior smoker with [id number] history. Quit smoking in [address] Jacobsen in the pulmonary clinic f/u with Dr Jacobsen for this (8) GERD (gastroesophageal reflux disease): Plan: PPI twice daily continued (9) Esophageal varices: Plan: Remote history of esophageal varices with bleeding greater than 15 years ago Patient has a history of alcohol abuse but no etoh in 20 years Cont PPI twice daily Last EGD - 02/2022 by [facility] - NO varices at that time (10) Former smoker: Plan: 21-hpgh-hxof smoking history. Quit smoking at age 53 3 mm left upper lobe nodule which has been stable (11) Psoriasis: Plan: Continue topical treatment as needed (12) Cirrhosis: Plan: 2nd etoh see discussion above Re: prior esophageal varices I cannot rule out that some of his volume overload is from cirrhosis cont lasix added aldactone 10/31 at 25mg, lasix as outlined above Consideration for once daily higher lasix with aldactone for volume at dc pending response to better HR control above (13) Chronic narcotic use: Plan: uses norco about twice daily on chronic basis the amount of tylenol used is acceptable even despite his cirrhosis history (14) NSVT (nonsustained ventricular tachycardia): Plan: 2 runs on 10/30/24 one run was 18 beats continue beta allison , titrate such ischemic eval needed? defer to cardiology cont telemetry Keep mag/K wnl (15) Cardiomyopathy: Plan: see discussion above Other problems/chronic: right knee pain - mild gouty arthritis vs OA vs other improved s/p prednisone for COPD Plan DVT proph - heparin converted to eliquis BID PM 10/31 updated pt's by phone 10/29, /son extensively at bedside 10/30. Dispo: continued inpatient stay, increased BB for AM 11/02 and lasix dosing pending response w/ HR/BB. PT/OT consults placed 10/31 to ensure safe to return home when medically stable. Hopeful next 24-48 hours for discahrge pending response. Will need rx for metoprolol, lasix, aldactone, eliquis at [place]. Admission and Anticipated Discharge Date Admission Date: October 28, 2024 Supervising Physician Co-Signing Physician Notes The patient was not seen by me. The chart was reviewed. Case discussed with LUÍS Grant. Agree with assessment and plan Subjective Evaluated this morning around lunch, sitting up in bed. Ongoing cough, sputum productive clear/white at present but reports prior was green/"base birch" color. Steroids have been continued for COPD. Got dose lasix this morning, urinal with CLEAR yellow urine, repeat lower dose for tonight but discussed darker urine last night/to alert nursing if occurs. Discussed HR improvement but plan for increased metoprolol for the morning. Passing gas but no BM. Prior was regular. Will increase bowel regimen. Questions/concerns addressed at this time. Physical Exam 2 Physical Exam: General: 73yo male sitting up at side of bed, NAD, +cough, on 2L NC HEENT: head atraumatic, normocephalic, mmm, trachea midline Resp: expiratory/inspiratory wheezing, rales in the bases bilaterally, on 2L NC but no tachypnea, +cough CV: irregularly irregular, rates 90-100s at rest, 1+ b/l LE edema, pulses present GI: +BS, soft/NT, slight edema : no durham, urinal in room with clear yellow urine MSK/Neuro: non focal, not confused, answering questions appropriately, moves all extremities Psych: AOx3, cooperative with exam Results & Data Results & Data Vital Signs (Past 12 Hours) Vital Signs Temp Pulse Pulse Resp BP Pulse Ox O2 Del Method 11/01/24 07:22 56 L 18 94 Room Air 11/01/24 03:28 36.5 C 89 18 120/78 96 Room Air 10/31/24 22:04 36.3 C L 86 18 133/81 94 Room Air 10/31/24 21:54 101 H 10/31/24 20:01 86 18 94 Room Air 10/31/24 20:00 Room Air Laboratory Results 11/01/24 06:02 11/01/24 06:02 Mag 2.2 PG Care Time/CCT Total # of Minutes Spent Total Time Spent with Patient: Total time spent is greater than 50% in coordination of care (as documented) at patient's floor/unit and/or counseling patient: Coding Level of Care Code 60634 SUB INP/OBS CARE 3/50MIN Diagnoses Acute hypoxic respiratory failure J96.01 Acute systolic CHF (congestive heart failure) I50.21 Family history of coronary artery disease Z82.49 Atrial fibrillation with RVR I48.91 COPD with emphysema J43.9 Pulmonary hypertension I27.20 Pulmonary nodules R91.8 GERD (gastroesophageal reflux disease) K21.9 Esophageal varices I85.00 Former smoker Z87.891 Psoriasis L40.9 Cirrhosis K74.60 Chronic narcotic use F11.90 NSVT (nonsustained ventricular tachycardia) I47.29 Cardiomyopathy I42.9
[2024-11-01 08:05] LABS: Magnesium 2.2 mg/dl (1.7-2.4)
[2024-11-01] MEDS: METOPROLOL SUCC 50MG EXT REL TAB PO SCH (08:19)
[2024-11-01] MEDS: FUROSEMIDE 40 MG/4 ML VIAL IV ONE (08:26)
[2024-11-01] MEDS: DOCUSATE SODIUM 100 MG CAP PO SCH (13:11)
--- NOTE | 2024-11-01 13:45 | XRay Report ---
XR chest 1V portable CLINICAL HISTORY: f/u pulm congestion COMPARISON STUDY: 10/28/2024 FINDINGS: There is stable cardiomegaly without pulmonary vascular congestion. There is stable mild st randing opacity in the lung bases. No new consolidation or pleural effusion. IMPRESSION: Stable exam. ACT 112: Negative or not required by law. Electronically signed by: Bob Wang M.D. 11/01/2024 1:44 PM
[2024-11-01] MEDS: FUROSEMIDE INJ 20 MG/2 ML VIAL IV ONE (17:09)
[2024-11-01] MEDS: METOPROLOL SUCC 25MG EXT REL TAB PO ONE (18:44)
[2024-11-02] MEDS: HYDROCORTISONE 2.5% CR 30 GM TUBE EXT PRN (00:45)
[2024-11-02 06:57] LABS: Hematocrit (blood only) 45.2 % (42.0-52.0); Hemoglobin 14.7 g/dl (14.0-18.0); Mean Corpuscular Hemoglobin 28.9 pg (25.0-34.0); Mean Corpuscular Hgb Conc 32.5 g/dL (32.0-36.0); Mean Corpuscular Volume 88.8 fL (80.0-100.0); Mean Platelet Volume 11.3 fL (9.4-12.4); Platelet Count 237 K/uL (130-400); RDW Coefficient of Variation 14.8 % (11.5-14.5); Red Blood Count 5.09 M/uL (4.70-6.10); White Blood Count 10.81 K/ul (4.8-10.8)
[2024-11-02 07:15] LABS: Calcium 9.8 mg/dl (8.6-10.3); Magnesium 2.2 mg/dl (1.7-2.4)
[2024-11-02 07:21] LABS: BUN Creatinine Ratio 37.7 (10-20); Creatinine Clr Calc Pharmacy 92.1 ml/min
--- NOTE | 2024-11-02 07:44 | Hospitalist Progress Note ---
Date of Service November 02, 2024 Assessment & Plan (1) Acute hypoxic respiratory failure: Plan: 2nd to decompensated acute systolic CHF 2nd to COPD with exacerbation - but probably playing lesser of a role of note -- patient had documented RRs >25 upon ER presentation - during admission exam by Dr Wang, he was tachypneic with severe cough & obvious dyspnea all pulmonary symptoms improved s/p lasix diuresis since admission cont diuresis/prednisone as outlined for COPD 11/02 Suspected combination acute HF/COPD exacerbation RATES IMPROVING, volume status improving with rate control/diuresis Lasix 40mg IV AM/20mg IV PM repeated on 10/31, 11/01 Weight 101.2kg--> 97.3kg, cum net negative 4.2L Now on ROOM AIR, 94% this morning -->Metoprolol prior changed to succinate 100mg AM 11/01 and given additional 25mg PO in evening for rate control --> Increased Metoprolol to 150mg PO daily AM 11/02 for afib/HR control Lasix 40mg IV x 1 for this morning, however suspect needing more rate control and LE edema MUCH improved/on room air now but still w/ MARQUES w/ minimal activity. Continues on Aldactone 25mg PO daily K/Mag replete, continues on telemetry Discussed w/ cardiology and holding off starting entresto for now as suspected more related to HR --> Will plan for repeat limited ECHO to eval EF in AM and if improved, plan to hold off for now but if remains low can be considered. Appreciate continued assistance from cards/recs Prednisone 30mg PO continued for COPD exacerbation. WBC improving/afebrile and CXR w/ cardiomegaly and IS continued encouraged (was ordered/provided 11/01) and now on ROOM AIR. Would plan for 2step prior to dc to ensure no needs PT/OT evals (2) Acute systolic CHF (congestive heart failure): Plan: EF 40-45% on echo this admission prior echo several years ago with EF 55-60% acute decompensation improving nicely cause of acute CHF -- uncontrolled a.fib? underlying, undiagnosed CAD? other factors? prior h/o heavy etoh use but none in many years thus alcoholic cardiomyopathy unlikely Lasix 40mg IV AM and 20mg IV PM on 10/31, repeated on 11/01 with improvement in weights/volume status as above and working on improvement in HR control for his Afib and metoprolol to 150mg PO daily as above One time Lasix 40mg IV for this morning, continues on new Aldactone 25mg PO daily (cirrhosis). Likely no need for additoinal lasix for this evening but will monitor volume status w/ improvement in HR control As above, possible entresto considered but cards rec repeat limited ECHO in AM to see if EF improved with HR control and if does, would hold off entresto Continue to monitor on telemetry/HR control/diuresis, appreciate recs/assistance from cards Will need cards f/u at dc for ongoing management labs in am (3) Family history of coronary artery disease: Plan: father with [place] which led to his passing brother in his 40s in his sleep patient with multiple CAD risk factors consider ischemic eval while here -- cardiology consult appreciated and could be considered but see note, not at this time (4) Atrial fibrillation with RVR: Plan: rates improved s/p institution of metoprolol at admission he was on dilt drip briefly then weaned off diltiazem relatively contraindicated in light of depressed EF for improved rate control increased meto tartrate from 25mg BID to 50mg BID --> resting HR controlled but high w/ activity Heparin gtt stopped, converted to ELIQUIS 5mg BID 10/31. Almeida check ~$20 -- rx at dc Converted to SUCCINATE AM 11/01, increased to 150mg PO daily for 11/02 and will continue/monitor for titration as needed, HR improved w/ activity to low 100s but will continue to monitor/adjustment as needed Keep K/Mag replete, PO Kcl for this morning given lasix but on aldactone and will monitor BMP in AM (5) COPD with emphysema: Plan: Follows with Dr. Jacobsen from the [facility] pulmonary clinic Cont formoterol BID, budesonide BID, LAMA daily Low dose prednisone 30mg daily added 10/30 for COPD exacerbation and added cough syrup AC prn, tessalon pearls Supplemental O2 to maintain sats, diuresis as above NOW ON ROOM AIR, monitor for 2step prior to dc (6) Pulmonary hypertension: Plan: Combination of type II and type III 2nd to COPD, etc Diuretics as outlined above, metoprolol for HR control. ?underlying LANNY (7) Pulmonary nodules: Plan: Patient with a left upper lobe 3 mm nodule Prior smoker with [id number]-hbjp history. Quit smoking in [address] Jacobsen in the pulmonary clinic f/u with Dr Jacobsen for this (8) GERD (gastroesophageal reflux disease): Plan: PPI twice daily continued (9) Esophageal varices: Plan: Remote history of esophageal varices with bleeding greater than 15 years ago Patient has a history of alcohol abuse but no etoh in 20 years Cont PPI twice daily Last EGD - 02/2022 by [facility] - NO varices at that time (10) Former smoker: Plan: 64-[id number] smoking history. Quit smoking at age 53 3 mm left upper lobe nodule which has been stable (11) Psoriasis: Plan: Continue topical treatment as needed (12) Cirrhosis: Plan: 2nd etoh see discussion above Re: prior esophageal varices I cannot rule out that some of his volume overload is from cirrhosis cont lasix as outlined, added aldactone / at 25mg and has been continued as above Dosing for lasix/Aldactone TBD pending above (13) Chronic narcotic use: Plan: uses norco about twice daily on chronic basis the amount of tylenol used is acceptable even despite his cirrhosis history (14) NSVT (nonsustained ventricular tachycardia): Plan: 2 runs on 10/30/24 one run was 18 beats continue beta allison , titrate such cont telemetry -- no further episodes ischemic eval needed? defer to cardiology Keep mag/K wnl as above (15) Cardiomyopathy: Plan: see discussion above Other problems/chronic: right knee pain - mild gouty arthritis vs OA vs other improved s/p prednisone for COPD Plan DVT proph - now on eliquis BID Dispo: increased metoprolol, lasix IV x 1 this morning. PT/OT evals in place and plan for repeat ECHO in AM to eval EF and if improved plan to hold off entresto for now. Will need Cards/CHF clininc follow up [place]. Admission and Anticipated Discharge Date Admission Date: October 28, 2024 Supervising Physician Co-Signing Physician Notes The patient was not seen by me. The chart was reviewed. Case discussed with LUÍS Grant. Agree with assessment and plan Subjective Eval this morning, now on room air. Does report oxygen a luxury, but does still get winded quickly with activities. Discussed increased metoprolol for this morning but also message cardiology about starting entresto this evening. If able to start tonight and tolerate would plan to continue. Leg edema much improved/weights down. One time lasix for this morning and hope if HR better controlled will improve much of his symptoms. Discussed w/ cardiology later in morning, plan for holding off entresto for now and repeating limited echo in AM to see if improvement in EF w/ HR control would hold off HF med for now. Physical Exam 2 Physical Exam: General: 73yo male sitting up in bed, appears improved, 94% on RA, occasional cough/MARQUES reported with minimal activity (although HR better w/ OOB to 100s per nursing, was to 150-160 w/ PT yesterday) HEENT: head atraumatic, normocephalic, mmm, trachea midline Resp: DECREASED expiratory/inspiratory wheezing, diminished in the bases but rales almost resolved, on ROOM AIR, +cough CV: irregularly irregular, rates 90-100s at rest, trace-1+ b/l LE edema IMPROVING, pulses present GI: +BS, soft/NT, decreased edema : no durham, urinal in room with clear yellow urine MSK/Neuro: non focal, not confused, answering questions appropriately, moves all extremities Psych: AOx3, cooperative with exam Results & Data Results & Data Vital Signs (Past 12 Hours) Vital Signs Temp Pulse Pulse Resp BP Pulse Ox O2 Del Method 11/02/24 07:22 81 18 94 Room Air 11/02/24 07:18 105 H 11/02/24 07:12 36.5 C 85 18 136/92 94 Room Air 11/02/24 02:56 36.5 C 93 H 18 148/90 H 93 Room Air 11/01/24 22:54 36.9 C 78 18 126/89 93 Room Air 11/01/24 20:50 37.1 C 97 H 18 131/86 97 Room Air 11/01/24 20:33 93 H 20 95 Nasal Cannula 11/01/24 20:00 Room Air O2 Flow Rate 11/02/24 07:22 11/02/24 07:18 11/02/24 07:12 11/02/24 02:56 11/01/24 22:54 11/01/24 20:50 11/01/24 20:33 2 11/01/24 20:00 Laboratory Results 11/02/24 06:08 11/02/24 06:08 Mag 2.2 Diagnostic Findings Chest X-Ray 11/01/24 12:13 XR chest 1V portable CLINICAL HISTORY: f/u pulm congestion COMPARISON STUDY: 10/28/2024 FINDINGS: There is stable cardiomegaly without pulmonary vascular congestion. There is stable mild stranding opacity in the lung bases. No new consolidation or pleural effusion. IMPRESSION: Stable exam. ACT 112: Negative or not required by law. Electronically signed by: Bob Wang M.D. 11/01/2024 1:44 PM PG Care Time/CCT Total # of Minutes Spent Total Time Spent with Patient: Total time spent is greater than 50% in coordination of care (as documented) at patient's floor/unit and/or counseling patient: Coding Level of Care Code 87525 SUB INP/OBS CARE 3/50MIN Diagnoses Acute hypoxic respiratory failure J96.01 Acute systolic CHF (congestive heart failure) I50.21 Family history of coronary artery disease Z82.49 Atrial fibrillation with RVR I48.91 COPD with emphysema J43.9 Pulmonary hypertension I27.20 Pulmonary nodules R91.8 GERD (gastroesophageal reflux disease) K21.9 Esophageal varices I85.00 Former smoker Z87.891 Psoriasis L40.9 Cirrhosis K74.60 Chronic narcotic use F11.90 NSVT (nonsustained ventricular tachycardia) I47.29 Cardiomyopathy I42.9
[2024-11-02] MEDS: METOPROLOL SUCC 50MG EXT REL TAB PO SCH (08:25)
[2024-11-02] MEDS: FUROSEMIDE 40 MG/4 ML VIAL IV ONE (11:00)
--- NOTE | 2024-11-02 16:33 | Cardiology Progress Note ---
Date of Service November 02, 2024 Assessment & Plan (1) Atrial fibrillation with RVR: (2) Exertional shortness of breath: (3) Cardiomyopathy: (4) NSVT (nonsustained ventricular tachycardia): Plan 1. Atrial fibrillation: He presents with atrial fibrillation with a rapid ventricular response, he was on no AV neal blocking medications on presentation. His rate was quickly controlled and he is now on metoprolol succinate 150 mg daily and I think his rate is adequately controlled with this. He is on Eliquis as well. 2. Dyspnea on exertion: This is likely cardiac in nature but whether it is due to the atrial fibrillation alone, or a contribution of his cardiomyopathy cannot be determined. With his rate controlled we can see if the symptoms resolve, so far he feels better but has not been very active. It is conceivably an anginal equivalent but with several other potential etiologies I do not think we need to look for that, as noted below. 3. Cardiomyopathy: This is likely due to atrial fibrillation with a rapid heart rate, although there is a suggestion of a septal abnormality but no evidence of acute myocardial injury. We could look for other primary causes of cardiomyopathy but in this setting I would recommend rate control, possibly rhythm control, with guideline directed treatment for left ventricular dysfunction and often there is rapid recovery of left ventricular function. If we do not see rapid resolution of the cardiomyopathy then we could proceed with evaluation for other causes of cardiomyopathy including ischemia. At this point I would like to repeat his echocardiogram (I believe that is scheduled for tomorrow morning) and if it shows some improvement sending him on beta-allison sufficient. If it has not improved then we should consider addition of Entresto. 4. NSVT: On telemetry he had 2 episodes of nonsustained ventricular tachycardia, one however was quite long at 18 beats at a rate of 160 to 180 bpm. He has had none over the past 24 hours. He also describes intermittent dizziness when he walks prior to admission, which could be hypoxia but it sounds as though it is transient and could be an arrhythmia. This with a somewhat reduced left ventricular ejection fraction is worrisome. I do not know that we should do electrophysiologic studies at this point but I think it would be prudent to get a 30-day event monitor upon discharge. We could probably arrange that by having him stop in the office on the way home. In the meantime I would titrate his beta-blockade somewhat as that may help with the VT as well as his cardiomyopathy and heart rate in atrial fibrillation Admission and Anticipated Discharge Date Admission Date: October 28, 2024 Subjective He is feeling well today, much better than on presentation. He is anxious to go home. Physical Exam Physical Exam: Constitutional: Alert, cooperative and in no distress. HEENT: Unremarkable Neck: No jugular venous distention, carotid pulses are irregular but otherwise normal and equal bilaterally without bruits. Pulmonary: Decreased breath sounds bilaterally with prolonged expiration, basilar crackles. Cardiac: Irregular rhythm with no murmur, gallop or rub. Abdomen: Soft, nontender with normal bowel sounds. Extremities: No edema. Neurologic: No focal findings. Skin: No rash, ecchymoses or petechiae. Results & Data Vital Signs (Past 12 Hours) Vital Signs Temp Pulse Pulse Resp BP Pulse Ox O2 Del Method 11/02/24 07:43 Room Air 11/02/24 07:22 81 18 94 Room Air 11/02/24 07:18 105 H 11/02/24 07:12 36.5 C 85 18 136/92 94 Room Air 11/02/24 02:56 36.5 C 93 H 18 148/90 H 93 Room Air 11/01/24 22:54 36.9 C 78 18 126/89 93 Room Air Laboratory Results CBC 11/02/24 Range/Units 06:08 WBC 10.81 H (4.8-10.8) K/ul RBC 5.09 (4.70-6.10) M/uL Hgb 14.7 (14.0-18.0) g/dl Hct 45.2 (42.0-52.0) % Plt Count 237 (130-400) K/uL Comprehensive Metabolic Panel 11/02/24 Range/Units 06:08 Sodium 141 (136-145) mmol/L Potassium 4.0 (3.5-5.1) mmol/L Chloride 102 (98-107) mmol/L Carbon Dioxide 32 (21-32) mmol/L BUN 29 H (6-23) mg/dl Creatinine 0.77 (0.6-1.4) mg/dl Glucose 84 (70-99(Fasting)) mg/dl Calcium 9.8 (8.6-10.3) mg/dl Intake and Output 11/02/24 11/02/24 11/02/24 06:59 14:59 22:59 Intake Total 720 / 720 Output Total 525 / 2350 1300 / 1300 Balance -525 / -720 -580 / -580 Intake: Oral 720 / 720 Output: Urine 525 / 2350 1300 / 1300 Other: Weight 97.341 kg [facility] Findings Telemetry: Atrial fibrillation, rate reasonably well-controlled around 80-110. PG Care Time/CCT Total # of Minutes Spent Total Time Spent with Patient: Total time spent is greater than 50% in coordination of care (as documented) at patient's floor/unit and/or counseling patient: Coding Level of Care Code 01320 SUB INP/OBS CARE 2/35MIN Diagnoses Atrial fibrillation with RVR I48.91 Exertional shortness of breath R06.02 Cardiomyopathy I42.9 NSVT (nonsustained ventricular tachycardia) I47.29
[2024-11-02] MEDS: CALCIUM CARBONATE 500 MG CHEWABLE TAB PO PRN (20:23)
[2024-11-03 07:22] LABS: BUN Creatinine Ratio 42.3 (10-20); Calcium 9.9 mg/dl (8.6-10.3); Creatinine Clr Calc Pharmacy 100.1 ml/min; Magnesium 2.2 mg/dl (1.7-2.4); Potassium 3.8 mmol/L (3.5-5.1)
[2024-11-03 07:29] LABS: Hematocrit (blood only) 44.8 % (42.0-52.0); Hemoglobin 14.8 g/dl (14.0-18.0); Mean Corpuscular Hemoglobin 29.1 pg (25.0-34.0); Mean Platelet Volume 11.3 fL (9.4-12.4); Platelet Count 249 K/uL (130-400); RDW Standard Deviation 48.3 fL (36.4-46.3); Red Blood Count 5.09 M/uL (4.70-6.10); White Blood Count 11.36 K/ul (4.8-10.8)
--- NOTE | 2024-11-03 08:08 | Hospitalist Progress Note ---
Date of Service November 03, 2024 Assessment & Plan (1) Acute hypoxic respiratory failure: Plan: 2nd to decompensated acute systolic CHF 2nd to COPD with exacerbation - but probably playing lesser of a role of note -- patient had documented RRs >25 upon ER presentation - during admission exam by Dr Wang, he was tachypneic with severe cough & obvious dyspnea all pulmonary symptoms improved s/p lasix diuresis since admission cont diuresis/prednisone as outlined for COPD Suspected combination acute HF/COPD exacerbation Lasix IV 40mg IV, 20mg IV provided on 10/31, 11/01 IMPROVING 11/03 Additional Lasix 40mg IV dose provided AM 11/02 and remains on room air since that time Weights up slightly -given Lasix 20mg IV x 1 this morning. Aldactone 25mg PO daily continued CXR improved and lungs without further wheezing, incentive spirometer ordered/encouraged and remains on nebs/inhalers. SpO2 93%, Will titrate prednisone to 20mg PO for AM 11/04, ?hopefully help w/ edema/weight gain and also possibly HR -- plan for titration at [facility] to complete Mucinex BID as taking this past month Notable had 6 beat run vtach overnight @22:28 on 11/02 and discussed with cards -->Metoprolol INCREASED to 200mg daily and will remain on telemetry Limited ECHO obtained this morning to see if improvement in EF with improvement in rates/volume status however ECHO with essentially unchanged EF 40-45%, mild global hypokinesis of LV. Septal motion c/w conduction abn. Plan to touching base w/ Dr Reyez this afternoon to see about start entrestro vs ischemic work-up. Patient was hopeful for dc but will await cardiology input but if recs for start entreso/not perusing ischemic workup during this admission could arrange as outpatient if improvement w/ meds for cardiomyopathy/CHF. Will need event monitor at [facility] and to arrange when stable for dc. Monitor weights, I&Os, labs/exam in AM (2) Acute systolic CHF (congestive heart failure): Plan: EF 40-45% this admission, acute decompensation w/o clear cause, ?uncontrolled afib, undiagnosed CAD, ?other. Hx alcohol use in past but many years ago/doubt alcoholic. Prior EF was 55-60% Cardiology consulted, see above Metoprolol now increased to 200mg PO daily, Aldactone 25mg PO continued. Lasix 20mg IV for this morning provided and LE edema almost resolved/no further wheezing on room air CXR improved. Will defer additional dosing for now but urine remains CLEAR and could repeat this afternoon if needed Continue to monitor weights, I&O, volume status. Will need cards/event monitor at [facility], to assist Limited ECHO unchanged EF from today and awaiting input from cardiology on start low dose entresto for this evening, ?ischemic work-up. (3) Atrial fibrillation with RVR: Plan: rates improved s/p institution of metoprolol at admission. he was on dilt drip briefly then weaned off --diltiazem relatively contraindicated in light of depressed EF Metoprolol converted to succinate 100mg on 11/01, additional 25mg dose PM dose provided and increased to 150mg for 11/02 however as above NOW UP TO 200mg PO DAILY Continue telemetry monitoring, Eliquis 5mg BID and rx at [facility] ($20) Electrolyte replacement as needed (4) Family history of coronary artery disease: Plan: father with [place] which led to his passing brother in his 40s in his sleep patient with multiple CAD risk factors consider ischemic eval while here -- cardiology consult appreciated and could be considered but see note, not at this time however given echo may change (5) COPD with emphysema: Plan: Follows with Dr. Jacobsen from the [facility] pulmonary clinic Cont formoterol BID, budesonide BID, LAMA daily Low dose prednisone 30mg daily added 10/30 for COPD exacerbation and added cough syrup AC prn, tessalon pearls Now on room air, no further wheezing on exam and will decrease prednisone to 20mg for am and plan to decrease by 10mg q2d to complete at dc Monitor for 2step need prior to dc, diuresis as needed above (6) Pulmonary hypertension: Plan: Combination of type II and type III- 2nd to COPD, etc Diuretics as outlined above, metoprolol for HR control. ?underlying LANNY (does snore) (7) Pulmonary nodules: Plan: Patient with a left upper lobe 3 mm nodule Prior smoker with [id number] history. Quit smoking in [address] Jacobsen in the pulmonary clinic f/u with Dr Jacobsen for this (8) GERD (gastroesophageal reflux disease): Plan: PPI twice daily continued, tums as needed. can monitor for pepcid (9) Esophageal varices: Plan: Remote history of esophageal varices with bleeding greater than 15 years ago Patient has a history of alcohol abuse but no etoh in 20 years Cont PPI twice daily Last EGD - 02/2022 by [facility] - NO varices at that time (10) Former smoker: Plan: [id number] smoking history. Quit smoking at age 53 3 mm left upper lobe nodule which has been stable (11) Psoriasis: Plan: Continue topical treatment as needed (12) Cirrhosis: Plan: 2nd etoh see discussion above Re: prior esophageal varices I cannot rule out that some of his volume overload is from cirrhosis (did have liver elastography testing and wasn't significantly elevated stiffness, not drank in while) Lasix as above, aldactone started 25mg PO daily/continued Volume status appears stable w/ management above but needing better HR control/possible ischemic work up above (13) Chronic narcotic use: Plan: uses norco about twice daily on chronic basis - had on dec but not use, was provided dose this morning the amount of tylenol used is acceptable even despite his cirrhosis history (14) NSVT (nonsustained ventricular tachycardia): Plan: 2 runs on 10/30/24, one run was 18 beats did not have further episodes but then did have 6 beat run vtach overnight @ 22:28 on 11/02 Increased metoprolol 200mg PO as above, ?ischemic work-up, pending cardiology input/recs Keep electrolytes stable (15) Cardiomyopathy: Plan: see discussion above Other problems/chronic: right knee pain - mild gouty arthritis vs OA vs other . improved s/p prednisone for COPD , titrating as below Plan DVT proph - eliquis BID, was on heparin gtt prior in the stay Dispo: continued inpatient stay, EF unchanged, metoprolol increased and waiting input from cards. Possible low dose entresto start for this evening but will await cards input Will need cards/CHF clinic in follow up as well as event monitor Admission and Anticipated Discharge Date Admission Date: October 28, 2024 Supervising Physician Co-Signing Physician Notes The patient was not seen by me. The chart was reviewed. Case discussed with LUÍS Grant. Agree with assessment and plan Subjective Eval this morning, MUCH better on exam today. Leg edema almost completely resolved. Did get lasix 20mg IV this morning. Discussed telemetry with vtach 6 beat overnight and metoprolol increased to 200mg this morning. He reports ECHO done this morning, remains on room air. No further wheezing on exam, stable sputum production and reports had been on mucinex for the past month. Discussed possible dc tomorrow w/ adjustments but he reports hopeful to dc today. Will see echo results and cardiology input to see if able to go home today. Physical Exam 2 Physical Exam: General: 73yo male sitting up in bed, appears MUCH improved, remains on room air, HR improved control compared to prior (although did have episode overnight vtach for 6 beats) HEENT: head atraumatic, normocephalic, mmm, trachea midline Resp: IMPROVED air entry bilaterally, no further wheezing this morning, slightly diminished in the bases with faint crackles but on ROOM AIR CV: irregularly irregular, rates 90s-100s this morning, vtach 6 beat @ ~2200 last evening), trace pedal edema, pulses present, calves nontender GI: +BS, soft/decreased distension, nontender MSK/Neuro: nonfocal, answering questions appropriately Psych: AOx3, cooperative with exam, hopeful for discharge Results & Data Results & Data Vital Signs (Past 12 Hours) Vital Signs Temp Pulse Pulse Resp BP BP Pulse Ox 11/03/24 07:35 36.6 C 109 H 18 135/89 93 11/03/24 07:17 102 H 16 93 11/03/24 03:48 36.4 C L 74 19 143/90 H 91 11/02/24 23:57 92 H 11/02/24 23:19 36.5 C 68 16 149/63 H 93 O2 Del Method 11/03/24 07:35 Room Air 11/03/24 07:17 Room Air 11/03/24 03:48 Room Air 11/02/24 23:57 11/02/24 23:19 Room Air Laboratory Results 11/03/24 06:12 11/03/24 06:12 Mag 2.2 Diagnostic Findings Chest X-Ray 11/03/24 08:07 XR chest 1V portable CLINICAL HISTORY: f/u pulm congestion COMPARISON STUDY: Chest CT February 08, 2024. Chest radiograph November 01, 2024. FINDINGS: There is no pneumothorax or pleural effusion. Linear bibasilar densities represent atelectasis. Cardiomediastinal silhouette is stable. There is no evidence for pulmonary edema. There is no consolidation to suggest pneumonia. IMPRESSION: 1. No acute cardiopulmonary findings. 2. Cardiomegaly without evidence for pulmonary edema. 3. Linear bibasilar densities consistent with atelectasis. ACT 112: Negative or not required by law. Electronically signed by: Yobani Miller M.D. 11/03/2024 8:42 AM PG Care Time/CCT Total # of Minutes Spent Total Time Spent with Patient: Total time spent is greater than 50% in coordination of care (as documented) at patient's floor/unit and/or counseling patient: Coding Level of Care Code 22001 SUB INP/OBS CARE 3/50MIN Diagnoses Acute hypoxic respiratory failure J96.01 Acute systolic CHF (congestive heart failure) I50.21 Atrial fibrillation with RVR I48.91 Family history of coronary artery disease Z82.49 COPD with emphysema J43.9 Pulmonary hypertension I27.20 Pulmonary nodules R91.8 GERD (gastroesophageal reflux disease) K21.9 Esophageal varices I85.00 Former smoker Z87.891 Psoriasis L40.9 Cirrhosis K74.60 Chronic narcotic use F11.90 NSVT (nonsustained ventricular tachycardia) I47.29 Cardiomyopathy I42.9
[2024-11-03] MEDS: POTASSIUM CHLORIDE CRTAB 20 MEQ TABCR PO STA (08:43)
--- NOTE | 2024-11-03 08:43 | XRay Report ---
XR chest 1V portable CLINICAL HISTORY: f/u pulm congestion COMPARISON STUDY: Chest CT February 08, 2024. Chest radiograph November 01, 2024. FINDINGS: There is no pneumothorax or pleural effusion. Linear bibasilar densities represent atelecta sis. Cardiomediastinal silhouette is stable. There is no evidence for pulmonary edema. There is no co nsolidation to suggest pneumonia. IMPRESSION: 1. No acute cardiopulmonary findings. 2. Cardiomegaly without evidence for pulmonary edema. 3. Linear bibasilar densities consistent with atelectasis. ACT 112: Negative or not required by law. Electronically signed by: Yobani Miller M.D. 11/03/2024 8:42 AM
[2024-11-03] MEDS: FUROSEMIDE INJ 20 MG/2 ML VIAL IV ONE (08:44)
[2024-11-03] MEDS: METOPROLOL SUCC 50MG EXT REL TAB PO SCH (08:49)
--- NOTE | 2024-11-03 10:57 | XCELERA ---
[id number] \\[facility]_PDF_Reports\[id number]
[2024-11-03] MEDS: guaiFENesin 600 MG TABCR PO SCH (11:56)
[2024-11-03] MEDS: VALSARTAN/SACUBITRIL 26/24MG TAB PO SCH (21:27)
[2024-11-04 07:15] LABS: Hematocrit (blood only) 49.5 % (42.0-52.0); Hemoglobin 16.3 g/dl (14.0-18.0); Mean Corpuscular Hemoglobin 29.2 pg (25.0-34.0); Mean Corpuscular Hgb Conc 32.9 g/dL (32.0-36.0); Mean Corpuscular Volume 88.7 fL (80.0-100.0); Mean Platelet Volume 11.1 fL (9.4-12.4); Platelet Count 277 K/uL (130-400); RDW Coefficient of Variation 14.9 % (11.5-14.5); RDW Standard Deviation 48.6 fL (36.4-46.3); Red Blood Count 5.58 M/uL (4.70-6.10); White Blood Count 11.49 K/ul (4.8-10.8)
[2024-11-04 07:40] LABS: BUN Creatinine Ratio 44.8 (10-20); Creatinine Clr Calc Pharmacy 105.3 ml/min; Magnesium 2.3 mg/dl (1.7-2.4); Potassium 4.1 mmol/L (3.5-5.1)
--- NOTE | 2024-11-04 08:08 | Hospitalist Progress Note ---
Date of Service November 04, 2024 Assessment & Plan (1) Acute hypoxic respiratory failure: Plan: 2nd to decompensated acute systolic CHF 2nd to COPD with exacerbation - but probably playing lesser of a role of note -- patient had documented RRs >25 upon ER presentation - during admission exam by Dr Wang, he was tachypneic with severe cough & obvious dyspnea all pulmonary symptoms improved s/p lasix diuresis since admission cont diuresis/prednisone as outlined for COPD Suspected combination acute HF/COPD exacerbation Lasix IV 40mg IV, 20mg IV provided on 10/31, 11/01 IMPROVING 11/03 Additional Lasix 40mg IV dose provided AM 11/02 and remains on room air since that time Weights up slightly -given Lasix 20mg IV x 1 this morning. Aldactone 25mg PO daily continued CXR improved and lungs without further wheezing, incentive spirometer ordered/encouraged and remains on nebs/inhalers. SpO2 93%, Will titrate prednisone to 20mg PO for AM 11/04, ?hopefully help w/ edema/weight gain and also possibly HR -- plan for titration at [facility] to complete Mucinex BID as taking this past month Notable had 6 beat run vtach overnight @22:28 on 11/02 and discussed with cards -->Metoprolol INCREASED to 200mg daily and will remain on telemetry Limited ECHO obtained this morning to see if improvement in EF with improvement in rates/volume status however ECHO with essentially unchanged EF 40-45%, mild global hypokinesis of LV. Septal motion c/w conduction abn. Plan to touching base w/ Dr Reyez this afternoon to see about start entrestro vs ischemic work-up. Patient was hopeful for dc but will await cardiology input but if recs for start entreso/not perusing ischemic workup during this admission could arrange as outpatient if improvement w/ meds for cardiomyopathy/CHF. Will need event monitor at [facility] and to arrange when stable for dc. Monitor weights, I&Os, labs/exam in AM 10 HR to 80-100s last evening with the increased metoprolol dose to 200mg PO daily. Given EF unchanged, did start low dose entresto as BPs appear to be able to tolerate, currently 120/69 without hypotension overnight and could also have had component driven by uncontrolled BP/diastolic dysfunction with his COPD? Weight DOWN, 97.6--> 96.2kg with only small one time lasix 20mg IV in the morning. Aldactone continued. K/M replete on chemistries Hopefully able to dc Mr Givens today on Metoprolol 200mg PO daily, eliquis 5mg BID, entresto 26-24mg, aldactone 25mg as well as possible lasix to use as needed for weight gain with CLOSE f/u with cardiology and arrangement for event monitor at [facility] pending eval by Dr Reyez Will see how his HR is up/ambulating as well (2) Acute systolic CHF (congestive heart failure): Plan: EF 40-45% this admission, acute decompensation w/o clear cause, ?uncontrolled afib, undiagnosed CAD, ?other. Hx alcohol use in past but many years ago/doubt alcoholic. Prior EF was 55-60% Cardiology consulted, see above Metoprolol now increased to 200mg PO daily, Aldactone 25mg PO continued. Lasix 20mg IV for this morning provided and LE edema almost resolved/no further wheezing on room air CXR improved. Will defer additional dosing for now but urine remains CLEAR and could repeat this afternoon if needed Continue to monitor weights, I&O, volume status. Will need cards/event monitor at [facility], to assist Limited ECHO unchanged EF from today and awaiting input from cardiology on start low dose entresto for this evening, ?ischemic work-up. (3) Atrial fibrillation with RVR: Plan: rates improved s/p institution of metoprolol at admission. he was on dilt drip briefly then weaned off --diltiazem relatively contraindicated in light of depressed EF Metoprolol converted to succinate 100mg on 11/01, additional 25mg dose PM dose provided and increased to 150mg for 11/02 however as above NOW UP TO 200mg PO DAILY Continue telemetry monitoring, Eliquis 5mg BID and rx at [facility] ($20) Electrolyte replacement as needed (4) Family history of coronary artery disease: Plan: father with [place] which led to his passing brother in his 40s in his sleep patient with multiple CAD risk factors consider ischemic eval while here -- cardiology consult appreciated and could be considered but see note, not at this time however given echo may change (5) COPD with emphysema: Plan: Follows with Dr. Jacobsen from the [facility] pulmonary clinic Cont formoterol BID, budesonide BID, LAMA daily Low dose prednisone 30mg daily added 10/30 for COPD exacerbation and added cough syrup AC prn, tessalon pearls Now on room air, no further wheezing on exam and will decrease prednisone to 20mg for am and plan to decrease by 10mg q2d to complete at dc Monitor for 2step need prior to dc, diuresis as needed above (6) Pulmonary hypertension: Plan: Combination of type II and type III- 2nd to COPD, etc Diuretics as outlined above, metoprolol for HR control. ?underlying LANNY (does snore) (7) Pulmonary nodules: Plan: Patient with a left upper lobe 3 mm nodule Prior smoker with 74-gvlv-cneo history. Quit smoking in [address] Jacobsen in the pulmonary clinic f/u with Dr Jacobsen for this (8) GERD (gastroesophageal reflux disease): Plan: PPI twice daily continued, tums as needed. can monitor for pepcid (9) Esophageal varices: Plan: Remote history of esophageal varices with bleeding greater than 15 years ago Patient has a history of alcohol abuse but no etoh in 20 years Cont PPI twice daily Last EGD - 02/2022 by [facility] - NO varices at that time (10) Former smoker: Plan: 70-edlc-mayt smoking history. Quit smoking at age 53 3 mm left upper lobe nodule which has been stable (11) Psoriasis: Plan: Continue topical treatment as needed (12) Cirrhosis: Plan: 2nd etoh see discussion above Re: prior esophageal varices I cannot rule out that some of his volume overload is from cirrhosis (did have liver elastography testing and wasn't significantly elevated stiffness, not drank in while) Lasix as above, aldactone started 25mg PO daily/continued Volume status appears stable w/ management above but needing better HR control/possible ischemic work up above (13) Chronic narcotic use: Plan: uses norco about twice daily on chronic basis - had on dec but not use, was provided dose this morning the amount of tylenol used is acceptable even despite his cirrhosis history (14) NSVT (nonsustained ventricular tachycardia): Plan: 2 runs on 10/30/24, one run was 18 beats did not have further episodes but then did have 6 beat run vtach overnight @ 22:28 on 11/02 Increased metoprolol 200mg PO as above, ?ischemic work-up, pending cardiology input/recs Keep electrolytes stable (15) Cardiomyopathy: Plan: see discussion above Other problems/chronic: right knee pain - mild gouty arthritis vs OA vs other . improved s/p prednisone for COPD , titrating as below Plan DVT proph - eliquis BID, was on heparin gtt prior in the stay Dispo: continued inpatient stay, EF unchanged, metoprolol increased and waiting input from cards. Possible low dose entresto start for this evening but will await cards input Will need cards/CHF clinic in follow up as well as event monitor Admission and Anticipated Discharge Date Admission Date: October 28, 2024 Subjective Eval this morning, doing much better. HR much better control, BP stable w/ addition of entresto. Patient hopeful to go home, discussed waiting to have Dr Reyez see/weigh in and if agrees will plan to dc on cardiac meds as discussed. No wheezing on exam and he does report the prednisone "doesn't agree with him" Discussed multiple days/dosing and can dc given such which will help weight/edema (none on exam) and discussed lasix prn for weight gain. Wanting to see how his HR is with ambulation, when his gets here he plans to walk the halls. If stable w/ ambulation and cleared by cardiology will dc this evening. [facility] Results & Data Results & Data Vital Signs (Past 12 Hours) Vital Signs Temp Pulse Pulse Resp BP Pulse Ox O2 Del Method 11/04/24 07:43 73 11/04/24 07:20 74 18 92 Room Air 11/04/24 04:38 36.4 C L 55 L 18 120/69 94 Room Air 11/03/24 23:34 91 H 11/03/24 23:10 36.5 C 86 18 132/86 95 Room Air 11/03/24 21:04 Room Air 11/03/24 20:09 93 H 18 94 Room Air PG Care Time/CCT Total # of Minutes Spent Total Time Spent with Patient: Total time spent is greater than 50% in coordination of care (as documented) at patient's floor/unit and/or counseling patient: Coding Diagnoses Acute hypoxic respiratory failure J96.01 Acute systolic CHF (congestive heart failure) I50.21 Atrial fibrillation with RVR I48.91 Family history of coronary artery disease Z82.49 COPD with emphysema J43.9 Pulmonary hypertension I27.20 Pulmonary nodules R91.8 GERD (gastroesophageal reflux disease) K21.9 Esophageal varices I85.00 Former smoker Z87.891 Psoriasis L40.9 Cirrhosis K74.60 Chronic narcotic use F11.90 NSVT (nonsustained ventricular tachycardia) I47.29 Cardiomyopathy I42.9
[2024-11-04] MEDS: predniSONE 20 MG TAB PO SCH (08:25)
--- NOTE | 2024-11-04 10:42 | Cardiology Progress Note ---
Date of Service November 04, 2024 Assessment & Plan (1) Atrial fibrillation with RVR: (2) Exertional shortness of breath: (3) Cardiomyopathy: (4) NSVT (nonsustained ventricular tachycardia): Plan 1. Atrial fibrillation: He presents with atrial fibrillation with a rapid ventricular response, he was on no AV neal blocking medications on presentation. His rate was quickly controlled and he is now on metoprolol succinate 200 mg daily and I think his rate is adequately controlled with this. He is on Eliquis as well. 2. Dyspnea on exertion: This is likely at least partly cardiac in nature but whether it is due to the atrial fibrillation alone, or a contribution of his cardiomyopathy cannot be determined. With his rate controlled we can see if the symptoms resolve, so far he feels better but has not been very active. It is conceivably an anginal equivalent but with several other potential etiologies I do not think we need to look for that, as noted below. 3. Cardiomyopathy: This is likely due to atrial fibrillation with a rapid heart rate, although there is a suggestion of a septal abnormality but no evidence of acute myocardial injury. We could look for other primary causes of cardiomyopathy but in this setting I would recommend rate control, possibly rhythm control, with guideline directed treatment for left ventricular dysfunction and often there is rapid recovery of left ventricular function. Since we did not see rapid resolution of the cardiomyopathy with rate control I agree with the use of other medications including Entresto. I would like to see him in the office in 2 to 3 weeks, if his left ventricular function remains reduced then we could proceed with evaluation for other causes of cardiomyopathy including ischemia. 4. NSVT: On telemetry he had 2 episodes of nonsustained ventricular tachycardia, one however was quite long at 18 beats at a rate of 160 to 180 bpm. He has had none over the past 24 hours. He also describes intermittent dizziness when he walks prior to admission, which could be hypoxia but it sounds as though it is transient and could be an arrhythmia. This with a somewhat reduced left ventricular ejection fraction is worrisome. I do not know that we should do electrophysiologic studies at this point but I think it would be prudent to get a 30-day event monitor upon discharge. We could probably arrange that by having him stop in the office on the way home. In the meantime I would titrate his beta-blockade somewhat as that may help with the VT as well as his cardiomyopathy and heart rate in atrial fibrillation Admission and Anticipated Discharge Date Admission Date: October 28, 2024 Subjective He is feeling well today, much better than on presentation and no sensation of his arrhythmia. Physical Exam Physical Exam: Constitutional: Alert, cooperative and in no distress. He is sitting in bed. HEENT: Unremarkable Neck: No jugular venous distention, carotid pulses are irregular but otherwise normal and equal bilaterally without bruits. Pulmonary: Decreased breath sounds bilaterally with prolonged expiration, basilar crackles. No wheeze. Cardiac: Irregular rhythm with no murmur, gallop or rub. Abdomen: Soft, nontender with normal bowel sounds. Extremities: No edema. Neurologic: No focal findings. Skin: No rash, ecchymoses or petechiae. Results & Data Vital Signs (Past 12 Hours) Vital Signs Temp Pulse Pulse Resp BP Pulse Ox O2 Del Method 11/04/24 10:08 Room Air 11/04/24 08:00 36 C L 64 20 114/74 92 Room Air 11/04/24 07:43 73 11/04/24 07:20 74 18 92 Room Air 11/04/24 04:38 36.4 C L 55 L 18 120/69 94 Room Air 11/03/24 23:34 91 H 11/03/24 23:10 36.5 C 86 18 132/86 95 Room Air Laboratory Results CBC 11/04/24 Range/Units 05:34 WBC 11.49 H (4.8-10.8) K/ul RBC 5.58 (4.70-6.10) M/uL Hgb 16.3 (14.0-18.0) g/dl Hct 49.5 (42.0-52.0) % Plt Count 277 (130-400) K/uL Comprehensive Metabolic Panel 11/04/24 Range/Units 05:34 Sodium 140 (136-145) mmol/L Potassium 4.1 (3.5-5.1) mmol/L Chloride 102 (98-107) mmol/L Carbon Dioxide 30 (21-32) mmol/L BUN 30 H (6-23) mg/dl Creatinine 0.67 (0.6-1.4) mg/dl Glucose 91 (70-99(Fasting)) mg/dl Calcium 10.0 (8.6-10.3) mg/dl Intake and Output 11/03/24 11/04/24 11/04/24 22:59 06:59 14:59 Intake Total / Output Total 1224 Balance -515 / -1265 Intake: Oral Output: Urine 1224 Other: Weight 96.247 kg Weight Measurement Method Built in [facility] Diagnostic Findings Telemetry: Atrial fibrillation with a rate 70 to 90 bpm. PG Care Time/CCT Total # of Minutes Spent Total Time Spent with Patient: Total time spent is greater than 50% in coordination of care (as documented) at patient's floor/unit and/or counseling patient: Coding Level of Care Code 05350 SUB INP/OBS CARE 2/35MIN Diagnoses Atrial fibrillation with RVR I48.91 Exertional shortness of breath R06.02 Cardiomyopathy I42.9 NSVT (nonsustained ventricular tachycardia) I47.29
--- NOTE | 2024-11-04 12:35 | Discharge Summary ---
Discharge Summary Date of Service November 04, 2024 Principal Dx & Hospital Course #1 = Principal Diagnosis (1) Acute systolic CHF (congestive heart failure): 73yo male with PMHx significant for CVA, severe COPD, pulmonary HTN, esophageal varices (hx alcohol 20 yr ago), tobacco use presented with shortness of breath starting 09/27 and was recently seen by urgent care and placed on doxycycline with prednisone taper and continued with problems 10 days prior to admission and given another course of antibitoics and steroid taper. He completed these prior to admission and despite use of home breathing treatments/nebulizers was having increased SOB prompting ER presentation. Was found to have new onset afib with RVR and placed on cardizem gtt as well as heparin drip and cardiology was consulted and ECHO ordered with notable REDUCTION in his EF to 40-45% from prior 55-60%. ?acute heart failure 2nd to afib with RVR, underlying CAD, COPD exacerbation/continued predisone use and tachycardia/afib, ?uncontrolled HTN worsening issue Metoprolol started and eventually transitioned to succinate 100mg on 11/01 with additional dosing and increased to 150mg on 11/02 with decision for FURTHER increase to 200mg to maintain adequate rate control . Converted metoprolol to eliquis 5mg BID without issues bleeding. Had been provided multiple doses of IV lasix with improvement in weights/edema (venous doppler negative for DVT) and titrated to room air and continued on newly started aldactone given cirrhosis hx for volume as well Troponin elevation suspected demand ishcemia from HF/afib with elevated rates but per cards, deferred on ischemic work up at this time however can be entertained in follow up. Was going to hold off entresto per cardiology if EF improved on repeat limited echo however remained at 40-45% and added low dose entresto PM 11/03 with stable BP and renal function. HRs MUCH improved on 200mg of metoprolol and was discussed with cardiology ok to discharge and they will arrange follow up in 2-3 weeks for ongoing management and consideration for ischemic work up pending repeat evals. Was provided steroids for COPD exacerbation as well, decreased and stopped at dc given resolution in wheezing as suspect made tachycardia worse as well as weight gain. Did send rx for lasix 40mg PO daily to use NEEDED for weight gain and discussed low salt diet/take if >3lb in 24 hours or 5lb in a week. Close f/u with cards and PCP. Did message PCP about getting labs for Neftaly this upcoming week as well to ensure stable renal function/electrolytes (K 4.1 and mag 2.3 prior to dc). At discharge: * Weight: 96.2kg (212lb) from 106.5kg from admission and unclear true dry weight however LE edema resolved and instructed Neftaly to obtain weight on his scale at home once discharged * Meds: Eliquis 5mg PO BID, Metoprolol 200mg PO daily, Entresto 26-24 mg TWICE daily and Aldactone 25mg PO daily. Lasix 40mg PO prn weight gain/edema as discussed * CM arranging for event monitor and will be able to see HR over course of time at dc but did have up/ambulating in the halls and maintains 90-low 100s and feeling great/ready for dc. Previously was to 150-160 w/ minimal exertion (2) Atrial fibrillation with RVR: As above, suspected cause for acute worsening in EF however remained unchanged w/ improvement in rates however did need further increase for adequate control and much better as above prior to dc TSH wnl on check Initially Heparin gtt--> eliquis BID and continued 5mg BID and joyce checked/20$ Metoprolol 200mg daily. Electrolyte stable at time of dc and Holter monitor to be arranged as above with cards f/u (3) Acute hypoxic respiratory failure: suspected acute on chronic, no O2 use at baseline improved with steroids/IV lasix and tx of afib/rates as above and has been stable on ROOM AIR without desaturations and prednisone decreased/discontinued at dc and BPs had been on the HIGHER side but will need to monitor for any insuff if develops off but he did not want to continue any further steroids at dc. continue home nebs/inhalers at dc, continue incentive spirometer and rx for mucinex as had been taking and rec avoiding tobacco (4) Family history of coronary artery disease: father with [place] which led to his passing as well as brother in his 40s in his sleep patient with multiple CAD risk factors consider ischemic eval while here however cardiology not feeling necc at this time however can be decided outpt in follow up if ongoing as SOB could have been his anginal equivalents (5) COPD with emphysema: Follows with Dr. Jacobsen from the [facility] pulmonary clinic Cont formoterol BID, budesonide BID, LAMA daily Low dose prednisone 30mg daily added 10/30 for COPD exacerbation and added cough syrup AC prn, tessalon pearls and decreased to 30mg on 11/03 and further to 20mg on 11/04 and wheezing resolved and as above did not want to continue any further at mo as he reports it makes his heart race and could have been worsening his HR w/ afib. As above, did have multiple prednisone tapers past months and risk for adrenal insuff but never drop w/ BP despite even entresto and did not send any further at mo and remained on room air without desat w/ ambulation Outpt f/u PCP/pulm (6) Pulmonary hypertension: Combination of type II and type III- 2nd to COPD, etc Diuretics as outlined above, metoprolol for HR control. ?underlying LANNY (does snore) -- f/u PCP (7) Pulmonary nodules: Patient with a left upper lobe 3 mm nodule Prior smoker with 70-[id number]-[id number] history. Quit smoking in [address] Jacobsen in the pulmonary clinic f/u with Dr Jacobsen for this (8) GERD (gastroesophageal reflux disease): PPI twice daily continued, tums as needed. can monitor for pepcid but given no further prednisone/hgb stable and improved without pain deferred and can continue PPI BID at mo as previously taking (9) Esophageal varices: Remote history of esophageal varices with bleeding greater than 15 years ago Patient has a history of alcohol abuse but no etoh in 20 years Cont PPI twice daily Last EGD - 02/2022 by [facility] - NO varices at that time (10) Former smoker: [id number]-[id number] smoking history. Quit smoking at age 53 3 mm left upper lobe nodule which has been stable (11) Psoriasis: Continued topical treatment as needed, stable exam/no issue (12) Cirrhosis: 2nd etoh see discussion above Re: prior esophageal varices I cannot rule out that some of his volume overload was from cirrhosis (did have liver elastography testing and wasn't significantly elevated stiffness, not drank in while) but benefit from low dose spironlactone for ongoing diuresis and ensuring potassium sparing to prevent lows/electrolyte abn w/ his afib but was sent on lasix prn w/ message to PCP to check labs this upcoming week to ensure remaining stable given new start entresto as well. (13) Chronic narcotic use: uses norco about twice daily on chronic basis - had on mar but not use, was provided dose as needed but had minimal needs the amount of tylenol used is acceptable even despite his cirrhosis history (14) NSVT (nonsustained ventricular tachycardia): 2 runs on 10/30/24, one run was 18 beats did not have further episodes but then did have 6 beat run vtach overnight @ 22:28 on 11/02 with no further episodes w/ increase in his BB above which was continued Outpt cards f/u, ischemic work up decision per cards as deferred inpatient (15) Cardiomyopathy: see discussion above Plan DVT proph - eliquis BID continued at dc for his afib. Venous doppler negative on admission and no pleuritic CP reported Dispo: discharged home with medications as outlined for afib/heart failure with follow up with cardiology/CHF clinic for ongoing management. Event monitor to be arranged. Patient doing MUCH better by discharge w/ improvement in rates and did not req additional lasix dosing/leg edema stable and weights with continued improvement Notes For Next Care Provider Ensure follow up with electrode cleaner/repeat labs recommended for this upcoming week given medication changes/diuretics/afib Consideration for formal sleep study recommended as agreeable but does have some snoring and could have untreated LANNY Continued discussion on low salt diet/etc. Ensure adequate BP control which was improved/131/82 prior to dc w/ addition of entresto and higher dose metoprolol Medication Changes From Visit Eliquis 5mg PO BID, Metoprolol 200mg PO daily, Entresto 26-24 mg TWICE daily and Aldactone 25mg PO daily. Lasix 40mg PO prn weight gain/edema as discussed Admission HPI Per Admitting Provider Attending: Dr. Wang 73-year-old male with past medical history of CVA, severe COPD, pulmonary hypertension, history of esophageal varices from ethanol use 20 years ago, history of tobacco abuse and ethanol use (quit smoking and drinking at age 53, pulmonary nodule followed by Dr. Jacobsen, left knee replacement, chronic bronchitis. Patient presented the emergency room with shortness of breath which started 09/27/2024. He was seen in the urgent care center at that time and started on doxycycline and a steroid taper with prednisone. Patient continued to have problems and approximately 10 days ago saw his primary care doctor who put him on another dose of antibiotics with another steroid taper. He has completed this taper. Patient has ongoing shortness of breath and has been using his nebulizer twice daily and as needed. He has also been using his albuterol inhaler at least hourly. His shortness of breath worsened today and he pre sented the emergency department for evaluation was found to be in new onset atrial fibrillation with rapid ventricular rate. He was started on Cardizem drip and currently has a rate of 92 bpm but remains in atrial fibrillation. Patient reports that he has had some episodes where he has had fluttering in his chest but no chest pain or tightness. No prior history of atrial fibrillation or cardiac disease. Patient denies any fever. He does have an ongoing cough with no production. He has no hemoptysis. Appetite has been decreased Patient has no other acute complaints at this time. Patient's Jennifer is with him and endorses history. Admission Exam Per Admitting Provider GENERAL : No acute distress. Pleasant. EYES: No icterus, gaze conjugate. Pupils equal round and reactive to light NOSE: No evidence of epistaxis. MOUTH: No lesions or candidiasis. Tongue is midline. No facial droop. NECK: Supple. No appreciation of carotid bruits LUNGS: Faint bilateral bronchospasm the upper kelley of the posterior lungs. No appreciation of bronchospasm with anterior examination. Breath sounds present throughout all lung kelley. No rhonchi. HEART: Irregular, irregular,. Telemetry currently with atrial fibrillation. Rate is better controlled and is currently 92 bpm ABDOMEN: Soft, NT, ND, BS Present. No high-pitched tinkling. Patient does have an umbilical hernia which is soft and reducible. EXTREMITIES: Bilateral peripheral edema in the left lower extremity. +1 peripheral edema in the right lower extremity. No calf tenderness. No Homans' sign. NEURO: A&OX3. Pupils equal round and reactive to light. Patient with no focal deficits. No slurred speech. No pronator drift. No facial droop. Strength is equal and appropriate upper extremities. Moves all extremities to command. Discharge Exam General: 73yo male sitting up in bed, appears MUCH improved, remains on room air, resolution in wheezing, anxious for dc home, HR to low 110s even with ambulation today Resp: IMPROVED air entry bilaterally, no further wheezing. slightly diminished in the bases with faint bibasilar crackles but on ROOM AIR CV: irregularly irregular, rates 600s-100s this morning, 110s with ambulation, no palpations reported, trace pedal edema almost completely resolved GI: +BS, soft/less distended, nontender MSK/Neuro: nonfocal, answering questions appropriately Psych: AOx3, cooperative with exam, hopeful for discharge Discharge Plan Discharge Items Patient Disposition: Home - Self-Care Reason For Visit: NEW ONSET A. FIB WITH RVR Discharge Diagnosis: Atrial fibrillation, cardiomyopathy, heart failure Goals: You have been hospitalized for an acute medical problem. During your stay at [facility], we have made an effort to correct the problem that brought you to the hospital while keeping you as comfortable as possible. Medications were used to bring your condition under control and your discharge instructions will include directions for any medications you should take after leaving the hospital. Please make sure you see your Primary Care Provider as part of your follow up plan. Activity: As commented below Non-emergency contact: Primary Care Provider and Brazing Machine Setter Call non-emergency contact if: you have any medication questions, your symptoms worsen, your pain is not controlled, your pain is concerning for you and you have a fever Follow-up/Referrals: Juma Reyez MD [Physician] - (Cardiology office will call to schedule follow up) John Beckwith MD [Primary Care Provider] - 11/08/24 9:45 am (Hospital follow up scheduled November 08 at 9:45) Diet: Heart Healthy and Low Sodium (2gm) Fluids: 2000ml (8 cups) Addtl Attending Provider Instructions: You have been hospitalized for shortness of breath and found to likely be a combination of factors. Your ultrasound of the heart showed a reduction in pumping function compared to prior levels and found to have evidence for acute heart failure as well as ar rtyhemia called atrial fibrillation as well as possible COPD exacerbation. Cardiology consult was undertaken and multiple medication changes have been made in attempts to get better heart rate control as well as diuretics to help pull off the fluid and starting a new medication called entresto to help improve the pumping function. Your heart rate has been MUCH improved and at discharge your medications will be: - Eliquis 5mg by mouth TWICE daily -- this is for afib to prevent strokes and is a blood thinner. Please do not take NSAIDS (ibuprofen/aspirin/etc) on this and monitor for bleeding/alert primary care if occurs. - Metoprolol 200mg by mouth once daily -- this is for afib to control your heart rates - Entresto 1 tablet TWICE DAILY -- this is to help with the pumping function of your heart/heart failure - Spironolactone (Aldactone) 25mg by mouth ONCE daily to help prevent fluid/ed morgan in your legs - Lasix (furosemide) 40mg by mouth ONLY IF NEEDED for weight gain >3lb in a day or 5lb in a week You should have repeat labs this upcoming week to ensure kidney function staying stable on these medications. Please follow up with cardiology for ongoing management. THey are going to schedule this for 2-3 weeks. You should follow up with primary care in the next week as well to monitor your progress and to ensure coordination of care. We are going to arrange for a thirty day event monitor to see how your heart rates are but I encourage you to avoid strenuous activity or heavy exercise during this time until seen in follow up to prevent elevating your heart rate too much but has been under MUCH better control. Please return to the ER with any increased shortness of breath, swelling, chest pain, fever/chills, or for any other symptoms concerning for you. It has been a pleasure being a part of the medical team providing for you while you have been in the hospital. Take care! Pending Studies at Discharge: No Stand-Alone Forms: My [facility] [email or web address], Smoking Cessation Medications and DC Order Prescriptions: New Eliquis 5 mg tablet 5 mg PO BID Qty: 60 5RF spironolactone 25 mg Tablet 25 mg PO QAM Qty: 30 0RF guaifenesin [Mucinex] 600 mg Tablet Extended Release 12hr 600 mg PO Q12 Qty: 60 0RF sacubitril-valsartan [Entresto] 24-26 mg Tablet 1 tab PO BID Qty: 60 0RF metoprolol succinate 200 mg tablet extended release 24 hr 200 mg PO DAILY Qty: 30 0RF furosemide 40 mg tablet 40 mg PO DAILY PRN (Reason: weight gain) Qty: 30 0RF Continued melatonin 1 mg tablet 1 mg PO HS PRN (Reason: Sleep) ascorbic acid (vitamin C) 1,000 mg tablet 1 gm PO BID (DME) Aerochamber MV spacer See Dose Instructions .ROUTE .MEDSUPPLY Qty: 1 0RF Dose Instruction: As directed Rx Instructions: As directed use with symbicort and ventolin albuterol sulfate 90 mcg/actuation HFA aerosol inhaler 2 puff inhalation Q6H PRN (Reason: COPD) Qty: 8.5 3RF Spiriva Respimat 2.5 mcg/actuation mist 2 puff inhalation DAILY Qty: 4 12RF formoterol fumarate [Perforomist] 20 mcg/2 mL solution for nebulization 2 ml inhalation BID Qty: 120 8RF budesonide 0.25 mg/2 mL suspension for nebulization 0.25 mg inhalation BID Qty: 60 8RF (DME) nebulizers [Aeroneb Go Nebulizer] Misc See Rx Instructions .MEDSUPPLY Qty: 1 0RF Rx Instructions: With tubing and supplies. J44.9. J45.9. hydrocodone-acetaminophen 5-325 mg Tablet 1 tab PO UD PRN (Reason: ARTHRITIC PAIN) levocetirizine 5 mg tablet 10 mg PO QPM PRN (Reason: allergy symptoms) elderberry fruit 50 mg/5 mL Syrup 0 mg PO UD zinc gluconate 50 mg Tablet 50 mg PO QAM Changed omeprazole 40 mg capsule,delayed release(DR/EC) 40 mg PO BID Qty: 60 0RF Discharge Orders: Discharge Order- CHF (Routine); Ordered 11/04/24 Ordered By: Callie Chapa Admission Data Admit Date/Time: 10/28/24 17:01 Attending Provider: Alfredo Elder Admit Provider: Tito Wang Primary Care Provider: John Beckwith Other Providers: Tito Wang; Juma Reyez Other Interventions: Discharge Summary Assessment (RN) Last Done: 11/04/24 13:41 Hospital Stay Data Consultations 10/28/24 15:41 ED Decision to Admit Stat 10/30/24 08:20 Consult Cardiology Routine Diagnostic Imagining Performed Chest X-Ray 10/28/24 14:08 XR chest 1V portable CLINICAL HISTORY: Chest pain, nonspecific COMPARISON STUDY: Chest CT February 08, 2024. Chest radiograph September 21, 2024. FINDINGS: There is no pneumothorax or pleural effusion. Cardiomegaly is unchanged. There is pulmonary vascular congestion. Minimal bibasilar opacities favor atelectasis. IMPRESSION: 1. Cardiomegaly with pulmonary vascular congestion. 2. Minimal bibasilar opacities which favor atelectasis. Although less likely, an infectious process could appear similar. Radiographic follow-up is recommended. ACT 112: Negative or not required by law. Electronically signed by: Yobani Miller M.D. 10/28/2024 3:11 PM Venous Doppler Study 10/28/24 20:33 EXAM: US venous doppler LE BI CLINICAL HISTORY: B/L le edema, RT greater, sedentary No definite RLE or LLE DVT detected TECHNIQUE: Ultrasound examination of bilateral lower extremity veins was performed in real time and duplex. One or more of the following were performed- spectral analysis, resistive index, waveform analysis, and pulsed Doppler. COMPARISON: None. FINDINGS: Normal phasic, non-pulsatile and spontaneous flow is noted in bilateral common femoral, superficial femoral, popliteal and posterior/anterior tibial and peroneal veins. Visualized veins of both lower extremities demonstrate normal compressibility. No sonographic evidence of acute deep vein thrombosis (DVT) is detected in the visualized veins of both lower extremities. Compression and Augmentation: All evaluated veins compress fully with applied transducer pressure. Augmentation of venous flow is noted with distal compression. Additional Findings: No evidence of intraluminal thrombus. Mild subcutaneous soft tissue edema identified in both legs IMPRESSION: 1. No sonographic evidence of acute DVT detected in bilateral common femoral, superficial femoral, popliteal, and posterior/anterior tibial and peroneal veins, at the time of examination. 2. Mild subcutaneous soft tissue edema identified in both legs. Disclaimer: DVT could be missed early in the disease when clot burden is minimal. For patients with moderate and high pretest probability of DVT and negative ultrasound, the [place] [employer] clinical guidelines recommend testing with a D-dimer assay or repeat ultrasound in 5-7 days. If symptoms worsen, the Society of radiologists in ultrasound recommends repeating ultrasound even earlier. Electronically signed by Adi Floyd 10-29-2024 01:08 AM Chest X-Ray 11/01/24 12:13 XR chest 1V portable CLINICAL HISTORY: f/u pulm congestion COMPARISON STUDY: 10/28/2024 FINDINGS: There is stable cardiomegaly without pulmonary vascular congestion. There is stable mild stranding opacity in the lung bases. No new consolidation or pleural effusion. IMPRESSION: Stable exam. ACT 112: Negative or not required by law. Electronically signed by: Bob Wang M.D. 11/01/2024 1:44 PM Chest X-Ray 11/03/24 08:07 XR chest 1V portable CLINICAL HISTORY: f/u pulm congestion COMPARISON STUDY: Chest CT February 08, 2024. Chest radiograph November 01, 2024. FINDINGS: There is no pneumothorax or pleural effusion. Linear bibasilar densities represent atelectasis. Cardiomediastinal silhouette is stable. There is no evidence for pulmonary edema. There is no consolidation to suggest pneumonia. IMPRESSION: 1. No acute cardiopulmonary findings. 2. Cardiomegaly without evidence for pulmonary edema. 3. Linear bibasilar densities consistent with atelectasis. ACT 112: Negative or not required by law. Electronically signed by: Yobani Miller M.D. 11/03/2024 8:42 AM ECHOCARDIOGRAM 10/29/2023 Compared to prior study, changes are noted Mildly reduced EF 40-45% Abnormal septal wall motion consistent with IVCD Borderline LVH Cannot diastolic dysfunction secondary to atrial fibrillation Normal RV size and function No significant valvular pathology LIMITED ECHO 11/03/2023 Compared to prior study, no significant change. Limited followup study LV is mildly dilated LV EF 40-45% Mild global hypokinesis of left ventricle Septal motion consistent with conduction abnormality Mild concentric LVH RV is normal in size/function IVC is moderately dilated Pending Results Patient Have Any Pending Studies at Discharge: No Discharge Instructions Given to Patient (Per Discharging Provider) You have been hospitalized for shortness of breath and found to likely be a combination of factors. Your ultrasound of the heart showed a reduction in pumping function compared to prior levels and found to have evidence for acute heart failure as well as arrtyhemia called atrial fibrillation as well as possible COPD exacerbation. Cardiology consult was undertaken and multiple medication changes have been made in attempts to get better heart rate control as well as diuretics to help pull off the fluid and starting a new medication called entresto to help improve the pumping function. Your heart rate has been MUCH improved and at discharge your medications will be: - Eliquis 5mg by mouth TWICE daily -- this is for afib to prevent strokes and is a blood thinner. Please do not take NSAIDS (ibuprofen/aspirin/etc) on this and monitor for bleeding/alert primary care if occurs. - Metoprolol 200mg by mouth once daily -- this is for afib to control your heart rates - Entresto 1 tablet TWICE DAILY -- this is to help with the pumping function of your heart/heart failure - Spironolactone (Aldactone) 25mg by mouth ONCE daily to help prevent fluid/edema in your legs - Lasix (furosemide) 40mg by mouth ONLY IF NEEDED for weight gain >3lb in a day or 5lb in a week You should have repeat labs this upcoming week to ensure kidney function staying stable on these medications. Please follow up with cardiology for ongoing management. THey are going to schedule this for 2-3 weeks. You should follow up with primary care in the next week as well to monitor your progress and to ensure coordination of care. We are going to arrange for a thirty day event monitor to see how your heart rates are but I encourage you to avoid strenuous activity or heavy exercise during this time until seen in follow up to prevent elevating your heart rate too much but has been under MUCH better control. Please return to the ER with any increased shortness of breath, swelling, chest pain, fever/chills, or for any other symptoms concerning for you. It has been a pleasure being a part of the medical team providing for you while you have been in the hospital. Take care! Supervising Physician Co-Signing Physician Notes The patient was not seen by me. The chart was reviewed. Case discussed with LUÍS Grant. Agree with assessment and plan Total Time Total Time Spent Total Time Spent (In Minutes): 70 Coding Level of Care Code 59631 INP/OBS DISCH >30 MIN Diagnoses Acute systolic CHF (congestive heart failure) I50.21 Atrial fibrillation with RVR I48.91 Acute hypoxic respiratory failure J96.01 Family history of coronary artery disease Z82.49 COPD with emphysema J43.9 Pulmonary hypertension I27.20 Pulmonary nodules R91.8 GERD (gastroesophageal reflux disease) K21.9 Esophageal varices I85.00 Former smoker Z87.891 Psoriasis L40.9 Cirrhosis K74.60 Chronic narcotic use F11.90 NSVT (nonsustained ventricular tachycardia) I47.29 Cardiomyopathy I42.9
[2024-11-04 12:49] VITALS: PULSE 97; RESP 16; TEMP 97.9; O2SAT 91
[2024-11-04] MEDS: INFLUENZA VACC TS2024-25(65y+)/PF (IIV3) 0.5mL Syr IM ONE (13:33)
[2024-11-04 13:43] VITALS: BP 128/84
== END 2024-11-04 14:23 | disposition home or self-care (01) | DRG 291 ==
LOC: ED 13:24 → EDINP 17:01 → SUATTDRO 17:01 → EDINP 20:33 → 2S 10-29 00:18